=== PATIENT | male | born 1940 | race Caucasian/White ===

== ENCOUNTER 2020-06-20 12:30 | Outpatient (CLI) | payer MEDICARE, SELFPAY ==
--- NOTE | 2020-06-20 12:37 | USCV_ITS ---
Uzair Jackson Age: 79 Gender: M : 1940 Exam Date: 06/20/2020 13:10 Ordering Phys: Flakito Anand MD (Andy) ([email or web address]) Technologist: Nelsy Florian Exam Location: [facility] [place] Indication: ARTERIOSCLEROSIS Risk Factors: Unknown Previous Vascular Surgery: L CEA Right Brachial BP: 0 / 0 Left Brachial BP: 0 / 0 Right Left Velocity (cm/s) Spectral Plaque Velocity (cm/s) Spectral Plaque Syst/Diast Broadening Syst/Diast Broadening 67.50/ 9.40 Prox CCA 55.50 / 9.40 48.90/ 10.10 Hetro Mid CCA 48.70 / 12.80 39.60/ 10.90 Hetro Distal CCA 50.40 / 11.10 44.40/ 9.40 Prox ICA 79.40 / 15.40 78.30/ 16.20 Mid ICA 116.50/ 23.30 63.40/ 14.20 Distal ICA 81.30 / 17.60 124.10 ECA 79.50 1.60 ICA/CCA 2.39 Not Vertebral Antegrade Visualized / cm/s 39.30/ 11.10 cm/s Bi Subclavian Bi 101.0 78.30 0 FINDINGS Comparison: 08-19-19. No significant elevation of systolic or diastolic velocities. Mild bilateral, intimal thickening with no elevation of velocity. Right vertebral artery not visualized. CONCLUSIONS Bilateral ICA stenosis less than 50%. No significant stenosis. Dr. Padma Lyon DO (Electronically Signed) Final Date: 20 June 2020 15:11 Amended: 20 June 2020 15:52 C
== END 2020-06-20 12:31 | disposition home or self-care (01) ==
PROVIDERS: PCP Physician Assistant Medical; Visit Provider Thoracic Surgery (Cardiothoracic Vascular Surgery)
DX: I65.23 Occlusion and stenosis of bilateral carotid arteries (principal)
CPT/HCPCS: 93880

== ENCOUNTER 2021-12-24 13:21 | Emergency (ER) | payer MEDICARE, MEDICAID, SELFPAY ==
[2021-12-24 13:27] VITALS: BP 122/68; PULSE 86; RESP 16; TEMP 36.9; O2SAT 93; BMI 29.5
--- NOTE | 2021-12-24 13:27 | ED_ITS ---
HPI - Epistaxis General: Chief complaint: General Medical Stated complaint: N/V, NOSEBLEED Time Seen by Provider: 12/24/21 13:26 Limitations: other (Poor historian) History of Present Illness: Mr. Jackson is an 81-year-old gentleman with somewhat unclear past medical history presents emergency department with generalized concerns. He reports nosebleeds over the past week or so that started after he hit his head while being in a [employer] lift. He denies loss of consciousness with this though reliability of history is somewhat unclear. He has had intermittent episodes of epistaxis since that time however all of them have been minor and self resolving and he does not think that he is on blood thinner. Additionally he endorses dizziness, nausea, vomiting, and generalized malaise. The patient endorses left heel pain. Intensity of overall symptoms is mild to moderate. Course is unclear. The patient has difficulty determining which concerns are new versus chronic and if they are worse than baseline. No other new symptoms, exacerbating, relieving factors identified. Onset (ago): day(s) Duration: intermittent Review of Systems General: Reports: 10 or more systems reviewed and unremarkable except in HPI and below PFSH ED PFSH: Medical History BPH loc w urin obs/LUTS CAD (coronary artery disease) Carotid stenosis HTN (hypertension) Type 2 diabetes mellitus Surgical History No pertinent past surgical history Social History Lives independently: No Housing: Alf Physical Exam Const: COMMON NORMALS: alert GENERAL APPEARANCE: cooperative and well developed HENMT: COMMON NORMALS: normocephalic, atraumatic and Normal external nose present HEAD & SCALP: normocephalic and atraumatic NOSE: Normal external nose present, Normal nares present, Normal septum present, Nasal polyp present (Small, nonbleeding) Nasal polyp laterality: left and Other nasal findings present (Minimal mucosal irritation) THROAT: posterior oropharynx normal Eye: COMMON NORMALS: conjunctivae normal CONJUNCTIVA: Yes conjunctivae normal SCLERA: sclerae normal Neck/C-Spine: COMMON NORMALS: supple GENERAL: Yes trachea midline Resp: COMMON NORMALS: normal respiratory effort EFFORT & INSPECTION: Yes able to speak in complete sentences Cardio: COMMON NORMALS: regular rate and regular rhythm RATE: regular rate RHYTHM: regular rhythm GI: COMMON NORMALS: Soft to palpation PALPATION: Yes Soft to palpation and No Tenderness to palpation present (GI) PERCUSSION: normal to percussion Extremity: GENERAL: Yes normal exam except as noted and No edema Neuro: COMMON NORMALS: CN's II-XII intact bilaterally, moves all extremities, no focal motor deficits and no sensory deficits noted SENSORIUM/ORIENTATION: Yes alert Psych: OTHER: Poor memory, cognition intact. Course ED course: - Patient was seen and evaluated by me at bedside - Patient placed on cardiac monitors, IV access obtained - Initial evaluation notable for exam as above, nontoxic. No active epistaxis - Labs notable for leukocytosis, normal hemoglobin. Metabolic panel with mildly decreased sodium and chloride without recent comparison. IV fluids ordered. Urinalysis concerning for urinary tract infection. Antibiotics ordered. - Imaging notable for no acute intracranial hemorrhage or mass on head CT. Chest x-ray unremarkable. No acute pathology identified to explain nausea or vomiting on CT abdomen pelvis - Upon serial reexamination after treatment the patient was improved - Based on patient history, evaluation, labs, and imaging as interpreted the most likely cause of the patient's condition is unclear, patient does have a urinary tract infection. Given nontoxic appearance and overall clinical status as well as in discussion with patient we will try outpatient management. - The results of ED evaluation were discussed with the patient and family including prescriptions and/or symptomatic cares (if applicable) including appropriate and responsible use, followup plan, and return precautions. The p atient and family verbalized understanding and felt safe for discharge. - Patient discharged in satisfactory condition. Note: Click bubbles or prepopulated bustamante in note writing are used for assistance with data collection and billing and are inherently more limited than narrative and other text portions of this note. Please use narrative for additional clinical history and defer to narrative/free test for any case of contradictory information. If information appears in only free text or click bubble it should be considered present or absent as reported. Please contact note verse writer for clarifications of clinical information or contradictory information. MDM is a brief summary, contradictory or erroneous seeming information should be clarified and full note should be reviewed. Vital Signs: Vital signs: Vital Signs Temperature 98.4 F 12/24/21 13:27 Pulse Rate 83 12/24/21 20:26 Respiratory Rate 16 12/24/21 20:26 Blood Pressure 117/64 12/24/21 20:26 Pulse Oximetry 92 12/24/21 20:26 MDM - Epistaxis Medical Decision Making 81-year-old gentleman residing at a [facility] presenting for epistaxis and nausea vomiting. No epistaxis noted on clinical exam. Laboratory studies with leukocytosis, patient does appear to have a urinary tract infection. Rocephin ordered in the emergency department and will trial continued outpatient treatment with strict return precautions. Medical Records I reviewed the patient's medical records. Lab Data I reviewed the patient's lab results. : 12/24/21 13:34 12/24/21 13:34 Radiology Impressions Calcaneus X-Ray 12/24/21 13:40 IMPRESSION: No calcaneal fracture. Foot X-Ray 12/24/21 13:40 IMPRESSION: 1. Severe osteopenia. 2. No definite fracture. Possible nondisplaced fracture proximal third metatarsal. 3. No calcaneal fracture. 4. Small calcaneal spur. Head CT 12/24/21 13:40 IMPRESSION: 1. No acute intracranial hemorrhage or edema. 2. Moderate atrophy and chronic ischemic type changes. 3. Air-fluid level LEFT maxillary sinus. LEFT frontal osteoma. Abdomen/Pelvis CT 12/24/21 15:05 IMPRESSION: 1. Mild pneumonitis at the lung bases. 2. Remote healed rib fractures inferior RIGHT thorax. 3. Diverticulosis without acute diverticulitis. 4. No evidence for cholecystitis or pancreatitis. 5. Bilateral renal cysts. 6. The appendix is not definitely identified. No inflammatory changes. Chest X-Ray 12/24/21 15:05 IMPRESSION: 1. No acute cardiopulmonary finding. Laboratory Results WBC 16.8 10^3/uL (4.0-10.0) H 12/24/21 13:34 RBC 5.44 10^6/uL (4.1-5.3) H 12/24/21 13:34 Hgb 15.2 g/dL (11.7-16.6) 12/24/21 13:34 Hct 47.4 % (42.0-52.0) 12/24/21 13:34 MCV 87.1 fl (80-94) 12/24/21 13:34 MCH 27.9 pg (28.0-34.0) L 12/24/21 13:34 MCHC 32.1 g/dL (30.0-36.0) 12/24/21 13:34 RDW 15.1 % (12.1-15.1) 12/24/21 13:34 Plt Count 267 10^3/cmm (130-400) 12/24/21 13:34 MPV 10.7 fL (7.4-10.4) H 12/24/21 13:34 Neut % (Auto) 80.9 % 12/24/21 13:34 Lymph % (Auto) 6.1 % 12/24/21 13:34 [place] % (Auto) 12.0 % 12/24/21 13:34 Eos % (Auto) 0.1 % 12/24/21 13:34 Baso % (Auto) 0.2 % 12/24/21 13:34 Neut # (Auto) 13.58 10^3/uL (1.8-7.7) H 12/24/21 13:34 Lymph # (Auto) 1.0 10^3/uL (0.8-4.8) 12/24/21 13:34 [place] # (Auto) 2.0 10^3/uL (0.2-0.9) H 12/24/21 13:34 Eos # (Auto) 0.0 10^3/uL (0.0-0.8) 12/24/21 13:34 Baso # (Auto) 0.0 10^3/uL (0.0-0.1) 12/24/21 13:34 Nucleated RBC % (auto) 0 % 12/24/21 13:34 Nucleated RBCs # 0.0 /100WBC 12/24/21 13:34 Sodium 130 mmol/L (136-145) L 12/24/21 13:34 Potassium 4.4 mmol/L (3.5-5.1) 12/24/21 13:34 Chloride 92 mmol/L (98-107) L 12/24/21 13:34 Carbon Dioxide 22 mmol/L (22-29) 12/24/21 13:34 Anion Gap 20.4 (5-19) H 12/24/21 13:34 BUN 33 mg/dL (8-23) H 12/24/21 13:34 Creatinine 1.2 mg/dL (0.7-1.2) 12/24/21 13:34 GFR Calculation Not Reportable 12/24/21 13:34 Glucose 181 mg/dL (65-115) H 12/24/21 13:34 Calculated Osmolality 282 mOsm/kg (285-295) L 12/24/21 13:34 Calcium 9.3 mg/dL (8.5-10.5) 12/24/21 13:34 Total Bilirubin 0.3 mg/dL (0.15-1.2) 12/24/21 13:34 AST 17 U/L (0-40) 12/24/21 13:34 ALT 21 U/L (0-41) 12/24/21 13:34 Alkaline Phosphatase 59 IU/L (40-130) 12/24/21 13:34 Total Protein 7.0 g/dL (6.6-8.7) 12/24/21 13:34 Albumin 3.6 g/dL (3.5-5.2) 12/24/21 13:34 Globulin 3.4 g/dL (1.3-4.6) 12/24/21 13:34 TSH 2.22 uIU/mL (0.27-4.20) 12/24/21 13:34 Urine Color Yellow (Yellow) 12/24/21 16:37 Urine Appearance Hazy (CLEAR) A 12/24/21 16:37 Urine pH 5 (5-7) 12/24/21 16:37 Ur Specific [place] 1.020 (1.005-1.030) 12/24/21 16:37 Urine Protein 1+ (Negative) H 12/24/21 16:37 Urine Glucose (UA) Norm (Normal) 12/24/21 16:37 Urine Ketones Negative (Negative) 12/24/21 16:37 Urine Blood 3+ (Negative) H 12/24/21 16:37 Urine Nitrate Negative (Negative) 12/24/21 16:37 Urine Bilirubin Neg (Negative) 12/24/21 16:37 Urine Urobilinogen Norm mg/dL (Negative) 12/24/21 16:37 Ur Leukocyte Esterase 2+ (Negative) H 12/24/21 16:37 Urine RBC 5-10 /hpf (0-2) H 12/24/21 16:37 Urine WBC Too numerous to cnt /hpf (0-5) H 12/24/21 16:37 Ur Squamous Epith Cells None /hpf (0-5) 12/24/21 16:37 Amorphous Sediment Not Reportable 12/24/21 16:37 Urine Bacteria 1+ /hpf (NONE) H 12/24/21 16:37 Discharge Plan Discharge Patient Disposition: Home Clinical Impression: Epistaxis, Acute UTI, Dehydration, Leukocytosis Condition: Stable Prescriptions: New cephalexin 500 mg capsule 500 mg PO Q6H 10 Days Qty: 40 0RF No Action finasteride 5 mg tablet 5 mg PO DAILY Qty: 30 2RF acetaminophen [Tylenol] 325 mg Tablet 325 mg PO QID PRN (Reason: Pain) 0RF metoprolol succinate 50 mg Tablet Extended Release 24 Hr 50 mg PO DAILY 0RF ondansetron HCl [Zofran] 8 mg Tablet 8 mg PO Q8H 0RF sennosides-docusate sodium [Senna Plus] 8.6-50 mg Tablet 1 tab-cap PO Q12H PRN (Reason: Constipation) 0RF clopidogrel 75 mg tablet 75 mg PO DAILY 0RF dimenhydrinate 50 mg Tablet 50 mg PO Q12H PRN (Reason: Nausea) 0RF famotidine 20 mg Tablet 20 mg PO DAILY 0RF magnesium hydroxide [Milk of Magnesia] 400 mg/5 mL Suspension 400 mg PO DAILY PRN (Reason: Constipation) 0RF tamsulosin 0.4 mg capsule 0.4 mg PO BID 0RF amlodipine 10 mg tablet 10 mg PO DAILY 0RF hydrochlorothiazide 25 mg tablet 25 mg PO DAILY 0RF Med Plus See Rx Instructions .ROUTE .COMPLEX 0RF Rx Instructions: ;TWO TIMES A DAY FOR PREVENTION Discharge Orders: Discharge ED (Routine); Ordered 12/24/21 Ordered By: Stuart Seals Referrals: Adrian Hensley [Referring] - Discharge Diet: Usual diet Discharge Activity: Resume usual activity Patient Instructions: Dehydration (ED), Urinary Tract Infection in Men (ED), Nosebleed (ED) Activity Restrictions/Additional Instructions: Thank you for visiting the emergency department. You were seen and evaluated for nosebleed. The exact cause of your symptoms is unclear as no nosebleed was seen on exam, you do have a mildly irritated polyp which is likely normal inside the nose however can be a source of bleeding. Additionally you were found to have dehydration and a urinary tract infection. This will be treated with antibiotics. Please follow-up with your primary care provider this week for reassessment. Please return to the emergency department for worsening illness, inability to tolerate oral intake, failure to improve, or anything else that you are concerned about a feel needs emergency department evaluation. Coding Level of Care Code ED [employer] for [facility] Exam Comprehensive
[2021-12-24 13:32] VITALS: BP 109/74; PULSE 83; RESP 14; O2SAT 98
--- NOTE | 2021-12-24 13:40 | XR_ITS ---
WS: [id number] LEFT CALCANEUS TECHNIQUE: Lateral and tangential view. HISTORY: heel pain COMPARISON: None available. No fracture identified. Diffuse osteopenia. Small calcaneal spur. XR/XR calcaneus LT min 2V [id number] IMPRESSION: No calcaneal fracture.
--- NOTE | 2021-12-24 13:40 | CT_ITS ---
WS: [id number] CT HEAD NONCONTRAST HISTORY: dizzy, falls TECHNIQUE: Contiguous axial imaging performed through the brain in 2.5 mm imaging. Bone and soft tiss ue windows. Sagittal and coronal reformats reviewed. All CT scans at [facility] use at least one of these dose optimization techniques: automated exposure control; mA and/or kV adjustment per pa tient size (includes targeted exams where dose is matched to clinical indication); or iterative recon struction. DLP: 2326.22 mGy.cm COMPARISON: 04/22/2018 No acute intracranial hemorrhage, midline shift or mass effect. Moderate bilateral atrophy and chronic microvascular ischemic disease. Bilateral cerebellar atrophy. Multiple small lacunar infarcts along the external capsules. Ventricles: Moderately dilated ventricles. Diffuse ventriculomegaly. Paranasal sinuses: Air-fluid level in the LEFT maxillary sinus. Dense concretion in the LEFT frontal sinus was also present on the prior study. This may be a developing osteoma. Mastoid air cells: Well pneumatized. Calvarium and scalp: Skull is intact with no soft tissue edema or swelling. CT/CT head wo con* [id number] IMPRESSION: 1. No acute intracranial hemorrhage or edema. 2. Moderate atrophy and chronic ischemic type changes. 3. Air-fluid level LEFT maxillary sinus. LEFT frontal osteoma.
--- NOTE | 2021-12-24 13:40 | XR_ITS ---
WS: [id number] LEFT FOOT: 3 VIEW(S) TECHNIQUE: AP, oblique and lateral. HISTORY: pain, midfoot plantar COMPARISON: None available. Possible nondisplaced fracture involving the proximal third metatarsal seen only on one image. Articu lations between the bones of the midfoot are obscured. Severe osteopenia. Small calcaneal spur. XR/XR foot LT min 3V* [id number] IMPRESSION: 1. Severe osteopenia. 2. No definite fracture. Possible nondisplaced fracture proximal third metatar roselyn. 3. No calcaneal fracture. 4. Small calcaneal spur.
[2021-12-24 13:52] LABS: Basophils % 0.2 %; Eosinophils % 0.1 %; Hematocrit 47.4 % (42.0-52.0); Hemoglobin 15.2 g/dL (11.7-16.6); Lymphocytes % 6.1 %; Mean Corpuscular HGB Conc 32.1 g/dL (30.0-36.0); Mean Corpuscular Hemoglobin 27.9 pg (28.0-34.0); Mean Corpuscular Volume 87.1 fl (80-94); Mean Platelet Volume 10.7 fL (7.4-10.4); Neutrophils # 13.58 10^3/uL (1.8-7.7); Neutrophils % 80.9 %; Nucleated Red Blood Cells % 0 %; Platelet Count 267 10^3/cmm (130-400); Red Blood Count 5.44 10^6/uL (4.1-5.3); Red Cell Distribution Width 15.1 % (12.1-15.1); White Blood Count 16.8 10^3/uL (4.0-10.0)
[2021-12-24 14:20] LABS: Alanine Aminotransferase 21 U/L (0-41); Albumin Level 3.6 g/dL (3.5-5.2); Alkaline Phosphatase 59 IU/L (40-130); Anion Gap 20.4 (5-19); Aspartate Amino Transferase 17 U/L (0-40); Blood Urea Nitrogen 33 mg/dL (8-23); Calcium 9.3 mg/dL (8.5-10.5); Carbon Dioxide 22 mmol/L (22-29); Chloride 92 mmol/L (98-107); Creatinine Clr Calc Pharmacy 51.9249; Globulin 3.4 g/dL (1.3-4.6); Glucose 181 mg/dL (65-115); Osmolality Calculated 282 mOsm/kg (285-295); Potassium 4.4 mmol/L (3.5-5.1); Sodium 130 mmol/L (136-145); Thyroid Stimulating Hormone 2.22 uIU/mL (0.27-4.20); Total Bilirubin 0.3 mg/dL (0.15-1.2)
[2021-12-24 15:04] VITALS: BP 111/60; PULSE 86; RESP 16; O2SAT 93
--- NOTE | 2021-12-24 15:05 | XR_ITS ---
WS: [id number] Exam: XR chest 1V portable [id number] Date/Time of Exam: 12/24/2021 3:06 PM Reason For Exam: ams, leukocytosis Comparison 04/22/2018. The lungs are fully expanded and clear. Cardiomediastinal structures are unremarkable for technique. No pleural effusions. Bony structures are intact. XR/XR chest 1V portable [id number] IMPRESSION: 1. No acute cardiopulmonary finding.
--- NOTE | 2021-12-24 15:05 | CT_ITS ---
WS: [id number] CT ABDOMEN AND PELVIS WITH CONTRAST HISTORY: n/v, leukocytosis, ams TECHNIQUE: Imaging performed of the abdomen and pelvis with IV contrast. Single phase imaging of the abdomen. Coronal and sagittal reformats are submitted. All CT scans at [facility] use at [address] one of these dose optimization techniques: automated exposure control; mA and/or kV adjustment per patient size (includes targeted exams where dose is matched to clinical indication); or iterative re construction. IV CONTRAST: Omnipaque 300; 95 mL IV. Oral contrast: No DLP: 1955.23 mGy.cm COMPARISON: None available. Lower thorax: Dependent changes at the lung bases. Mild interstitial thickening likely represent mild pneumonitis. Heart is slightly enlarged. No hiatal hernia. Incompletely visualized rib abnormality i n the RIGHT lower thorax is probably a healing rib fracture. There are several adjacent healing rib f ractures in the RIGHT thorax. Liver/biliary system: Normal size with mild hepatic steatosis. Normal portal vein. Gallbladder: Normal. No gallstones or wall thickening. No pericholecystic fluid. Pancreas: Normal size pancreas and pancreatic duct. No adjacent inflammation. Spleen: Normal size spleen. No mass or infarct. Adrenal glands: Normal. Right kidney: RIGHT renal cyst measures 4.1 x 5.0 cm. No solid mass. There is an additional subcentim eter cortical cyst in the posterior mid kidney. No renal obstruction. Left kidney: Multiple small cysts. No perinephric stranding or obstruction. Aorta: Moderate atherosclerotic plaque within the aorta. Heavy calcification continues into the myla c axis and SMA. Bilateral renal artery calcification. Calcification continues into the iliac arteries bilaterally. Lymphadenopathy: None. Free fluid: None. GI tract: Nondistended stomach. No small bowel obstruction. The appendix is not identified but there is no evidence for appendicitis. Several diverticula are noted within the distal colon. No CT evidenc e for acute diverticulitis. No obstructive pattern or mass. Abdominal wall: Unremarkable abdominal wall. No hernia. Pelvis: No free fluid or adenopathy within the pelvis. Well-distended urinary bladder. No intralumina l filling defect. Bones: Unremarkable. CT/CT abdomen pelvis w con* [id number] IMPRESSION: 1. Mild pneumonitis at the lung bases. 2. Remote healed rib fractures inferior RIGHT thorax. 3. Diverticulosis without acute diverticulitis. 4. No evidence for cholecystitis or pancreatitis. 5. Bilateral renal cysts. 6. The appendix is not definitely identified. No inflammatory changes.
--- NOTE | 2021-12-24 15:18 | PC.PHAR ---
MEDICATION VERIFIED BY NURSE DICKERSON AT [facility]
[2021-12-24] MEDS: iohexol 300 mg/mL 100 mL Btl IV (15:33)
[2021-12-24] MEDS: sodium chloride 0.9% 1,000 ML 999 ML IV (16:10)
[2021-12-24 16:58] LABS: Urine Appearance Hazy (CLEAR); Urine Color Yellow (Yellow)
[2021-12-24 16:59] LABS: Add Urine Microscopic? YES; Bilirubin Urine Neg (Negative); Blood Urine 3+ (Negative); Glucose Urine UA Norm (Normal); Ketones Urine Negative (Negative); Leukocyte Esterase Urine 2+ (Negative); Nitrate Urine Negative (Negative); Protein Urine 1+ (Negative); Urobilinogen Urine Norm (Negative); pH Urine 5 (5-7)
[2021-12-24 17:15] LABS: Add Urine Culture? Yes; Bacteria Urine 1+ /hpf; WBC Urine TOO NUMEROUS TO CNT /hpf (0-5)
[2021-12-24] MEDS: cefTRIAXone 1,000 MG in sodium chloride 0.9% (plus) 50 ML 100 MG IV (17:40)
[2021-12-24 20:05] VITALS: BP 117/64; PULSE 81; RESP 16; O2SAT 93
[2021-12-24 20:26] VITALS: BP 117/64; PULSE 83; RESP 16; O2SAT 92
== END 2021-12-24 20:51 | disposition home or self-care (01) ==
PROVIDERS: Emergency Provider Emergency Medicine
DX: R04.0 Epistaxis (principal); N39.0 Urinary tract infection, site not specified; E86.0 Dehydration; D72.829 Elevated white blood cell count, unspecified; Z79.02 Long term (current) use of antithrombotics/antiplatelets; I25.10 Atherosclerotic heart disease of native coronary artery without angina pectoris; I10 Essential (primary) hypertension; E11.9 Type 2 diabetes mellitus without complications
CPT/HCPCS: 36415; 51701; 70450; 71045; 73630; 73650; 74177; 80053; 81001; 84443; 85025; 87040; 87086; 96361; 96374; 99284; J0696; J7030; Q9967

== ENCOUNTER 2021-12-25 21:55 | Inpatient (IN) | payer MEDICARE, MEDICAID, SELFPAY ==
--- NOTE | 2021-12-25 21:59 | CTR_ITS ---
PROCEDURE INFORMATION: Exam: CT Head Without Contrast Exam date and time: 12/25/2021 9:59 PM Age: 81 years old Clinical indication: Altered mental status/memory loss and fever; Patient HX: Per [facility], patient having increased unresponsiveness and weakness with fever. Patient diagnosed with UTI on 12/24/2021. TECHNIQUE: Imaging protocol: Computed tomography of the head without contrast. Radiation optimization: All CT scans at this facility use at least one of these dose optimization techniques: automated exposure control; mA and/or kV adjustment per patient size (includes targeted exams where dose is matched to clinical indication); or iterative reconstruction. COMPARISON: CT head wo con* [id number] 12/24/2021 2:04 PM RADIATION DOSE METRICS: Total DLP (mGy-cm): 803.61 FINDINGS: Brain: No acute intracranial hemorrhage or mass effect. There is decreased attenuation in the periventricular white matter, likely from microvascular disease. Suspect small old lacunar infarcts in the basal ganglia/internal capsule regions bilaterally. No definite acute infarct by CT. MRI could be more sensitive/specific for detection, and also for distinguishing between old and subacute infarcts, as clinically directed. Cerebral ventricles: Ventricle size is unchanged. Paranasal sinuses: Apparent osteoma again seen in the left frontal sinus. Moderate fluid/opacity involving the left maxillary sinus, unchanged. Included paranasal sinuses otherwise appear essentially clear. Mastoid air cells: No significant acute finding. Vasculature: Vascular calcifications in the internal carotid and vertebral basilar systems. Bones/joints: No definite acute skull fracture. Soft tissues: No significant acute finding. CT/CT head wo con* [id number] IMPRESSION: 1. No acute intracranial hemorrhage or mass effect. 2. Changes of microvascular disease, and small old lacunar infarcts. 3. No definite acute infarct by CT, see above. 4. Paranasal sinus findings as discussed above. 5. Other findings discussed above.
--- NOTE | 2021-12-25 21:59 | XRR_ITS ---
PROCEDURE INFORMATION: Exam: XR Chest Exam date and time: 12/25/2021 9:59 PM Age: 81 years old Clinical indication: Other: Weak; Patient HX: AMS; Additional info: Weakness TECHNIQUE: Imaging protocol: XR of the chest. Views: 1 view. COMPARISON: CR XR chest 1V portable [id number] 12/24/2021 3:10 PM FINDINGS: Lungs: No CHF/pulmonary edema. Visible lungs appear essentially clear. Pleural spaces: No visible pneumothorax. No definite pleural fluid. Heart/Mediastinum: Heart size is upper range of normal. Vasculature: Mild to moderate aortic tortuosity, similar to the prior exam. Bones/joints: No significant acute finding. XR/XR chest 1V portable [id number] IMPRESSION: 1. No definite CHF or pneumonia. 2. Other findings discussed above.
[2021-12-25 22:11] VITALS: BP 169/88; PULSE 134; RESP 18; TEMP 38.3; O2SAT 89; BMI 33.2
--- NOTE | 2021-12-25 22:29 | ED_ITS ---
HPI - Altered Mental Status General: Chief Complaint: Altered Mental Status Stated Complaint: AMS Time Seen by Provider: 12/25/21 21:58 Source: patient Mode of arrival: ambulatory Limitations: no limitations History of Present Illness: 81-year-old male who was seen here yesterday diagnosed with UTI sent back to detention per detention today has became more altered. Patient at baseline is ANO x2 and he is bedbound as well states today that he was completely unresponsive at times and it most time he does tell his name but not talk much. Here he is alert will tell me his name but is quite lethargic patient does have a fever here of 101 states been altered all day long from his baseline. No cough Associated symptoms: Deny depression Review of Systems General: Reports: ROS unobtainable due to mental status Const: Denies: fever(s), chills, body aches or change in appetite Eyes: Denies: blurry vision or eye discomfort ENMT: Denies: throat pain or dental pain Card: Denies: chest pain Resp: Denies: dyspnea GI: Denies: abdominal pain, nausea, vomiting or diarrhea : Denies: dysuria Musc: Denies: neck pain or back pain Skin/Breast: Denies: rash Neuro: Denies: headache(s) Psych: Denies: depression Vinny/Lymph: Denies: easy bruising All/Imm: Denies: urticaria PFSH ED PFSH: Medical History BPH loc w urin obs/LUTS CAD (coronary artery disease) Carotid stenosis HTN (hypertension) Type 2 diabetes mellitus Surgical History No pertinent past surgical history Social History Lives independently: No Housing: Half-Way Physical Exam Const: COMMON NORMALS: alert; negative for patient oriented x3 EXAM LIMITATIONS: altered mental status GENERAL APPEARANCE: in distress, lethargic and ill appearing ORIENTATION/CONSCIOUSNESS: Yes oriented to person and Yes lethargic; not oriented to place and not oriented to time HENMT: COMMON NORMALS: normocephalic and atraumatic HEAD & SCALP: normocephalic and atraumatic Eye: COMMON NORMALS: Equal, round and reactive pupils present and EOMs intact bilaterally PUPIL: Yes Equal, round and reactive pupils present Neck/C-Spine: COMMON NORMALS: full ROM and supple Chest: COMMONS NORMALS: normal inspection of the chest and normal palpation of entire chest wall Resp: COMMON NORMALS: normal respiratory effort, No retractions, No use of accessory muscles and clear to auscultation bilaterally AUSCULTATION: clear to auscultation bilaterally Cardio: COMMON NORMALS: regular rhythm and No murmurs present (Cardio) RATE: tachycardic RHYTHM: regular rhythm GI: COMMON NORMALS: Normal to inspection, nondistended, normoactive bowel sounds present, Soft to palpation, non-tender and no masses PALPATION: Yes Soft to palpation Extremity: COMMON NORMALS: normal to inspection and full ROM Neuro: COMMON NORMALS: negative for patient oriented x3 SENSORIUM/ORIENTATION: Yes alert, Yes oriented to person, No oriented to place, No oriented to time and Yes lethargic Psych: COMMON NORMALS: cooperative; negative for mental status grossly normal and negative for Normal thought process present THOUGHT PROCESS: abnormal Skin: COMMON NORMALS: no rashes or lesions noted and no wounds GENERAL SKIN EXAM: no rashes or lesions noted Course Vital Signs: Vital signs: Vital Signs Temperature 101.0 F H 12/25/21 22:11 Pulse Rate 134 H 12/25/21 22:11 Respiratory Rate 18 12/25/21 22:11 Blood Pressure 169/88 12/25/21 22:11 Pulse Oximetry 89 L 12/25/21 22:11 MDM - Altered Mental Status Medical Decision Making Patient presents here with fever along with some altered mental status his white count is actually improved since yesterday's urinalysis is improved as well he likely does have an acute cystitis causing his fever and AMS. He will answer some of my questions here but per previous history is a little altered from baseline I spoke to Dr. Robledo and she will admit for observation here. Lab Data : 12/25/21 22:30 12/25/21 22:[address] 12/25/21 21:59 IMPRESSION: 1. No acute intracranial hemorrhage or mass effect. 2. Changes of microvascular disease, and small old lacunar infarcts. 3. No definite acute infarct by CT, see above. 4. Paranasal sinus findings as discussed above. 5. Other findings discussed above. Laboratory Results WBC 13.7 10^3/uL (4.0-10.0) H 12/25/21: RBC 5.63 10^6/uL (4.1-5.3) H 12/25/21: Hgb 15.6 g/dL (11.7-16.6) 12/25/21: Hct 46.2 % (42.0-52.0) 12/25/21: MCV 82.1 fl (80-94) 12/25/21: MCH 27.7 pg (28.0-34.0) L 12/25/21: MCHC 33.8 g/dL (30.0-36.0) 12/25/21 RDW 14.5 % (12.1-15.1) 12/25/21 Plt Count 222 10^3/cmm (130-400) 12/25/21 MPV 10.4 fL (7.4-10.4) 12/25/21: Neut % (Auto) 84.6 % 12/25/21: Lymph % (Auto) 5.1 % 12/25/21: [place] % (Auto) 8.9 % 12/25/21: Eos % (Auto) 0.0 % 12/25/21: Baso % (Auto) 0.3 % 12/25/21: Neut # (Auto) 11.58 10^3/uL (1.8-7.7) H 12/25/21: Lymph # (Auto) 0.7 10^3/uL (0.8-4.8) L 12/25/21: [place] # (Auto) 1.2 10^3/uL (0.2-0.9) H 12/25/21: Eos # (Auto) 0.0 10^3/uL (0.0-0.8) 12/25/21 Baso # (Auto) 0.0 10^3/uL (0.0-0.1) 12/25/21: Nucleated RBC % (auto) 0 % 12/25/21 Nucleated RBCs # 0.0 /100WBC 12/25/21: PT 13.50 SECONDS (12.1-14.9) 12/25/21: INR 1.00 (0.8-1.2) 12/25/21: Sodium 129 mmol/L (136-145) L 12/25/21: Potassium 3.9 mmol/L (3.5-5.1) 12/25/21: Chloride 89 mmol/L (98-107) L 12/25/21: Carbon Dioxide 23 mmol/L (22-29) 12/25/21: Anion Gap 20.9 (5-19) H 12/25/21: BUN 22 mg/dL (8-23) 12/25/21: Creatinine 0.9 mg/dL (0.7-1.2) 12/25/21 GFR Calculation Not Reportable 12/25/21 Glucose 151 mg/dL (65-115) H 12/25/21: Calculated Osmolality 274 mOsm/kg (285-295) L 12/25/21: Lactic Acid 1.7 mmol/L (0.5-2.2) 12/25/21: Calcium 9.4 mg/dL (8.5-10.5) 12/25/21: Total Bilirubin 0.4 mg/dL (0.15-1.2) 12/25/21: AST 21 U/L (0-40) 12/25/21: ALT 18 U/L (0-41) 12/25/21: Alkaline Phosphatase 63 IU/L (40-130) 12/25/21: Ammonia 10 umol/L (16-60) L 12/25/21: Total Protein 7.2 g/dL (6.6-8.7) 12/25/21: Albumin 4.0 g/dL (3.5-5.2) 12/25/21: Globulin 3.2 g/dL (1.3-4.6) 12/25/21: Urine Color Yellow (Yellow) 12/25/21: Urine Appearance Clear (CLEAR) 02/22/22 22:38 Urine pH 5 (5-7) 12/25/21 22:38 Ur Specific [place] 1.020 (1.005-1.030) 12/25/21 22:38 Urine Protein Neg (Negative) 12/25/21 22:38 Urine Glucose (UA) Norm (Normal) 12/25/21 22:38 Urine Ketones 1+ (Negative) H 12/25/21 22:38 Urine Blood Trace (Negative) H 12/25/21 22:38 Urine Nitrate Negative (Negative) 12/25/21 22:38 Urine Bilirubin Neg (Negative) 12/25/21 22:38 Urine Urobilinogen Norm mg/dL (Negative) 12/25/21 22:38 Ur Leukocyte Esterase Negative (Negative) 12/25/21 22:38 Urine RBC 0-4 /hpf (0-2) H 12/25/21 22:38 Urine WBC 25-40 /hpf (0-5) H 12/25/21 22:38 Ur Squamous Epith Cells 0-4 /hpf (0-5) H 12/25/21 22:38 Amorphous Sediment Not Reportable 12/25/21 22:38 Urine Bacteria Trace /hpf (NONE) 12/25/21 22:38 Urine Mucus Trace /hpf 12/25/21 22:38 Urine Yeast 1+ /hpf H 12/25/21 22:38 SARS-CoV-2 Ag (Rapid) Negative (Negative) 12/25/21 22:28 Discharge Plan Discharge Patient Disposition: Admitted As Inpatient Clinical Impression: Acute cystitis, AMS (altered mental status) Condition: Stable Prescriptions: No Action finasteride 5 mg tablet 5 mg PO DAILY Qty: 30 2RF Tylenol 325 mg Tablet 325 mg PO QID PRN (Reason: Pain) 0RF metoprolol succinate 50 mg Tablet Extended Release 24 Hr 50 mg PO DAILY 0RF Zofran 8 mg Tablet 8 mg PO Q8H 0RF Senna Plus 8.6-50 mg Tablet 1 tab-cap PO Q12H PRN (Reason: Constipation) 0RF clopidogrel 75 mg tablet 75 mg PO DAILY 0RF dimenhydrinate 50 mg Tablet 50 mg PO Q12H PRN (Reason: Nausea) 0RF famotidine 20 mg Tablet 20 mg PO DAILY 0RF Milk of Magnesia 400 mg/5 mL Suspension 400 mg PO DAILY PRN (Reason: Constipation) 0RF tamsulosin 0.4 mg capsule 0.4 mg PO BID 0RF amlodipine 10 mg tablet 10 mg PO DAILY 0RF hydrochlorothiazide 25 mg tablet 25 mg PO DAILY 0RF Med Plus See Rx Instructions .ROUTE .COMPLEX 0RF Rx Instructions: ;TWO TIMES A DAY FOR PREVENTION cephalexin 500 mg capsule 500 mg PO Q6H 10 Days Qty: 40 0RF Coding Level of Care Code ED Auto Bumper Mechanic for Chg Fwd Exam Comprehensive
[2021-12-25 22:48] LABS: Basophils % 0.3 %; Hematocrit 46.2 % (42.0-52.0); Hemoglobin 15.6 g/dL (11.7-16.6); Lymphocytes # 0.7 10^3/uL (0.8-4.8); Lymphocytes % 5.1 %; Mean Corpuscular HGB Conc 33.8 g/dL (30.0-36.0); Mean Corpuscular Hemoglobin 27.7 pg (28.0-34.0); Mean Corpuscular Volume 82.1 fl (80-94); Mean Platelet Volume 10.4 fL (7.4-10.4); Monocytes # 1.2 10^3/uL (0.2-0.9); Monocytes % 8.9 %; Neutrophils # 11.58 10^3/uL (1.8-7.7); Neutrophils % 84.6 %; Nucleated Red Blood Cells % 0 %; Platelet Count 222 10^3/cmm (130-400); Red Blood Count 5.63 10^6/uL (4.1-5.3); Red Cell Distribution Width 14.5 % (12.1-15.1); White Blood Count 13.7 10^3/uL (4.0-10.0)
[2021-12-25 23:03] LABS: Add Urine Culture? Yes; Add Urine Microscopic? YES; Bacteria Urine TRACE /hpf; Bilirubin Urine Neg (Negative); Blood Urine Trace (Negative); Glucose Urine UA Norm (Normal); Ketones Urine 1+ (Negative); Leukocyte Esterase Urine Negative (Negative); Mucus Urine TRACE /hpf; Nitrate Urine Negative (Negative); Protein Urine Neg (Negative); RBC Urine 0-4 /hpf (0-2); Squamous Epithelial Cell Urine 0-4 /hpf (0-5); Urine Appearance Clear (CLEAR); Urine Color Yellow (Yellow); Urobilinogen Urine Norm (Negative); WBC Urine 25-40 /hpf (0-5); pH Urine 5 (5-7)
[2021-12-25 23:04] LABS: Lactic Sepsis W/Reflex 1.7 mmol/L (0.5-2.2)
[2021-12-25 23:05] LABS: Alanine Aminotransferase 18 U/L (0-41); Alkaline Phosphatase 63 IU/L (40-130); Anion Gap 20.9 (5-19); Aspartate Amino Transferase 21 U/L (0-40); Blood Urea Nitrogen 22 mg/dL (8-23); Calcium 9.4 mg/dL (8.5-10.5); Carbon Dioxide 23 mmol/L (22-29); Chloride 89 mmol/L (98-107); Globulin 3.2 g/dL (1.3-4.6); Glucose 151 mg/dL (65-115); Osmolality Calculated 274 mOsm/kg (285-295); Potassium 3.9 mmol/L (3.5-5.1); Sodium 129 mmol/L (136-145); Total Bilirubin 0.4 mg/dL (0.15-1.2); Total Protein 7.2 g/dL (6.6-8.7)
[2021-12-25 23:06] LABS: Ammonia 10 umol/L (16-60)
[2021-12-25 23:14] LABS: SARS Covid-2 Antigen Negative (Negative)
[2021-12-25 23:33] LABS: ABG PCO2 31.7 mmHg (35-45); Arterial Blood Gas Hematocrit 45.9 % (42-52); Base Excess ABG 2.2 mmol/L (-2.0-2.0); Blood Gas Allen Test Pos; Blood Gas Sample Site Radial, right; Blood Gas Sample Type Arterial; HCO3 ABG 24.7 mmol/L (22-26)
[2021-12-26] VITALS (12 sets, daily range): BP systolic 106–150; BP diastolic 66–87; PULSE 76–107; RESP 18–27; TEMP 36.3–37.4; O2SAT 92–98; BMI 25.7
[2021-12-26] MEDS: cefTRIAXone 1,000 MG in sodium chloride 0.9% (plus) 50 ML 100 MG IV (00:28)
--- NOTE | 2021-12-26 01:44 | PC.NURSE ---
ADMIT NOTE Pt received to floor from ER at 0135. Is poorly responsive. Opens eyes and occ will answer yes or no occ to questions but mostly just doesn't answer. Was unable to tell me his name but does respond to Uzair Unable to get any admission info from pt. VS check done and has low grade temp. Incont large amt urine on arrival to floor. Depends changed. Redness/chaffing to bilat buttocks. [place] ointment applied. Has some scattered small scabbed sores noted. Small scabbed sore to second toe on Left foot. O2 in place at 2l per NC. Bed alarm on for safety.
--- NOTE | 2021-12-26 06:06 | PC.NURSE ---
SHIFT NOTE Has been resting since arrival to floor. No distress noted. Incont of urine and changed. Does open his eyes and said good morning to me this morning. Also said he was doing ok then closed eyes and was back asleep. Telemetry showing SR
--- NOTE | 2021-12-26 06:31 | P.HP_ITS ---
Providers/Chief Complaint Admitting Physician: Janae Robledo MD Chief Complaint: AMS History of Present Illness Uzair Jackson is a 81 year old male sent from assisted today on 2nd day in a row due to c/o fever and AMS that started 2 days ago. No history is availabel from patient due to AMS, curently unable to reach [facility] [address]. Per chart review Starr has a PMH hypertension, CVA with left junaid-motor deficit, hyperlipidemia, left carotid artery stenosis status post endarterectomy, diabetes mellitus type II, BPH with urinary obstruction and chronic indwelling [place], positional vertigo, and depression/anxiety Currently feberile in [facility] ER with T max 101F, leukocytsois , + UA from 12/24. CT head without acute change. Review of Systems General: Reports: ROS unobtainable due to medical condition and ROS unobtainable due to mental status Medications/Allergies Home Medications Medication Instructions Recorded Confirmed Last Taken Type finasteride 5 mg tablet 5 mg PO DAILY #30 tab 09/14/20 12/26/21 12/24/21 08:00 Rx Med Plus See Rx Instructions .ROUTE .COMPLEX 12/24/21 12/26/21 12/24/21 08:00 History acetaminophen 325 mg tablet 325 mg PO QID PRN 12/24/21 12/26/21 12/23/21 History (Tylenol) amlodipine 10 mg tablet 10 mg PO DAILY 12/24/21 12/26/21 12/24/21 08:00 History cephalexin 500 mg capsule 500 mg PO Q6H 10 Days #40 cap 12/24/21 12/26/21 Unknown Rx clopidogrel 75 mg tablet 75 mg PO DAILY 12/24/21 12/26/21 12/24/21 08:00 History dimenhydrinate 50 mg tablet 50 mg PO Q12H PRN 12/24/21 12/26/21 12/24/21 08:00 History famotidine 20 mg tablet 20 mg PO DAILY 12/24/21 12/26/21 12/24/21 08:00 History hydrochlorothiazide 25 mg tablet 25 mg PO DAILY 12/24/21 12/26/21 12/24/21 08:00 History magnesium hydroxide 400 mg/5 mL 400 mg PO DAILY PRN 12/24/21 12/26/21 12/23/21 13:39 History oral suspension (Milk of Magnesia) metoprolol succinate 50 mg 50 mg PO DAILY 12/24/21 12/26/21 12/24/21 08:00 History tablet,extended release 24 hr ondansetron HCl 8 mg tablet 8 mg PO Q8H 12/24/21 12/26/21 12/24/21 08:00 History sennosides 8.6 mg-docusate sodium 1 tab-cap PO Q12H PRN 12/24/21 12/26/21 Unknown History 50 mg tablet (Senna Plus) tamsulosin 0.4 mg capsule 0.4 mg PO BID 12/24/21 12/26/21 12/24/21 08:00 History Allergies Allergy/AdvReac Type Severity Reaction Status Date / Time No Known Allergies Allergy Verified 12/24/21 15:19 PFSH Acute PFSH: Medical History BPH loc w urin obs/LUTS CAD (coronary artery disease) Carotid stenosis HTN (hypertension) Type 2 diabetes mellitus Surgical History No pertinent past surgical history Social History Lives independently: No Housing: [facility] Vitals/I&O/Wt Last Vital Signs Temp 98.9 F 12/26/21 04:00 Pulse 94 12/26/21 04:00 Resp 20 H 12/26/21 04:00 BP 123/74 12/26/21 04:00 Pulse Ox 95 12/26/21 04:00 12/25/21 12/25/21 12/26/21 14:59 22:59 06:59 Intake Total 50 / 50 Balance 50 / 50 Weight last 48 hrs Weight 78.925 kg Weight 102.058 kg Physical Exam Narrative: GEN: lethargic, obtunded, best response os opening eyes to calling name without other significant participation CVS: S1S2 N RS: CTA B/L Abd: Soft, nt/nd , bs+ CUSTOMS INVESTIGATOR: unable to assess Data : 12/25/21 22:30 12/25/21 22:30 Micro: Microbiology 12/25/21 22:44 Blood Culture - Preliminary Blood SPECIMEN COLLECTED 12/25/21 22:30 Blood Culture - Preliminary Blood SPECIMEN COLLECTED Other data: Radiology Impressions Chest X-Ray 12/25/21 IMPRESSION: 1. No definite CHF or pneumonia. 2. Other findings discussed above. Head CT 12/25/21:59 IMPRESSION: 1. No acute intracranial hemorrhage or mass effect. 2. Changes of microvascular disease, and small old lacunar infarcts. 3. No definite acute infarct by CT, see above. 4. Paranasal sinus findings as discussed above. 5. Other findings discussed above. Laboratory Results WBC 13.7 10^3/uL (4.0-10.0) H 12/25/21 22:30 RBC 5.63 10^6/uL (4.1-5.3) H 12/25/21: Hgb 15.6 g/dL (11.7-16.6) 12/25/21: Hct 46.2 % (42.0-52.0) 12/25/21: MCV 82.1 fl (80-94) 12/25/21: MCH 27.7 pg (28.0-34.0) L 12/25/21: MCHC 33.8 g/dL (30.0-36.0) 12/25/21: RDW 14.5 % (12.1-15.1) 12/25/21: Plt Count 222 10^3/cmm (130-400) 12/25/21: MPV 10.4 fL (7.4-10.4) 12/25/21: Neut % (Auto) 84.6 % 12/25/21: Lymph % (Auto) 5.1 % 12/25/21: [place] % (Auto) 8.9 % 12/25/21: Eos % (Auto) 0.0 % 12/25/21: Baso % (Auto) 0.3 % 12/25/21: Neut # (Auto) 11.58 10^3/uL (1.8-7.7) H 12/25/21: Lymph # (Auto) 0.7 10^3/uL (0.8-4.8) L 12/25/21: [place] # (Auto) 1.2 10^3/uL (0.2-0.9) H 12/25/21 22:30 Eos # (Auto) 0.0 10^3/uL (0.0-0.8) 12/25/21 22:30 Baso # (Auto) 0.0 10^3/uL (0.0-0.1) 12/25/21 22:30 Nucleated RBC % (auto) 0 % 12/25/21 22:30 Nucleated RBCs # 0.0 /100WBC 12/25/21 22:30 PT 13.50 SECONDS (12.1-14.9) 12/25/21 22:30 INR 1.00 (0.8-1.2) 12/25/21 22:30 Specimen Type Arterial 12/25/21 21:59 Sample Site Radial, right 12/25/21 21:59 ABG pH 7.50 (7.35-7.45) H 12/25/21 21:59 ABG pCO2 31.7 mmHg (35-45) L 12/25/21 21:59 ABG pO2 81.0 mmHg (80.0-100.0) 12/25/21 21:59 ABG HCO3 24.7 mmol/L (22-26) 12/25/21 21:59 ABG Base Excess 2.2 mmol/L (-2.0-2.0) H 12/25/21 21:59 Alonso Test Pos 12/25/21 21:59 Hematocrit 45.9 % (42-52) 12/25/21 21:59 O2 Delivery Device None 12/25/21 21:59 Breast Splitter ID [place] 12/25/21 21:59 Sodium 129 mmol/L (136-145) L 12/25/21 22:30 Potassium 3.9 mmol/L (3.5-5.1) 12/25/21 22:30 Chloride 89 mmol/L (98-107) L 12/25/21 22:30 Carbon Dioxide 23 mmol/L (22-29) 12/25/21 22:30 Anion Gap 20.9 (5-19) H 12/25/21 22:30 BUN 22 mg/dL (8-23) 12/25/21 22:30 Creatinine 0.9 mg/dL (0.7-1.2) 12/25/21 22:30 GFR Calculation Not Reportable 12/25/21: Glucose 151 mg/dL (65-115) H 12/25/21: Calculated Osmolality 274 mOsm/kg (285-295) L 12/25/21 Lactic Acid 1.7 mmol/L (0.5-2.2) 12/25/21: Calcium 9.4 mg/dL (8.5-10.5) 12/25/21: Total Bilirubin 0.4 mg/dL (0.15-1.2) 12/25/21: AST 21 U/L (0-40) 12/25/21 ALT 18 U/L (0-41) 12/25/21 Alkaline Phosphatase 63 IU/L (40-130) 12/25/21: Ammonia 10 umol/L (16-60) L 12/25/21: Total Protein 7.2 g/dL (6.6-8.7) 12/25/21: Albumin 4.0 g/dL (3.5-5.2) 12/25/21: Globulin 3.2 g/dL (1.3-4.6) 12/25/21: Urine Color Yellow (Yellow) 12/25/21: Urine Appearance Clear (CLEAR) 12/25/21: Urine pH 5 (5-7) 12/25/21: Ur Specific [place] 1.020 (1.005-1.030) 12/25/21: Urine Protein Neg (Negative) 12/25/21: Urine Glucose (UA) Norm (Normal) 12/25/21: Urine Ketones 1+ (Negative) H 12/25/21: Urine Blood Trace (Negative) H 12/25/21: Urine Nitrate Negative (Negative) 12/25/21 Urine Bilirubin Neg (Negative) 12/25/21: Urine Urobilinogen Norm mg/dL (Negative) 12/25/21: Ur Leukocyte Esterase Negative (Negative) 12/25/21: Urine RBC 0-4 /hpf (0-2) H 12/25/21: Urine WBC 25-40 /hpf (0-5) H 12/25/21 22:38 Ur Squamous Epith Cells 0-4 /hpf (0-5) H 12/25/21 22:38 Amorphous Sediment Not Reportable 12/25/21 22:38 Urine Bacteria Trace /hpf (NONE) 12/25/21 22:38 Urine Mucus Trace /hpf 12/25/21 22:38 Urine Yeast 1+ /hpf H 12/25/21 22:38 SARS-CoV-2 Ag (Rapid) Negative (Negative) 12/25/21 22:28 A&P Assessment and plan (1) AMS (altered mental status): may be related to underlying UTI + Ua from 12/24 , has a h/o urinary retention and BPH Zosyn empirically for treatment Blood cx taken and ending Urine cx remains pending Clinically dehydrated with dry parched skin, IVF NS @ 75cc /hr continue home doses of antihypertensives CXR without consolidation rapid covid negative unknown baseline mentation at this time Status: Acute (2) Acute UTI: Status: Acute Attestations Medical Necessity Statement*: >2midnight admission anticipated for iv abx, treatment of UTI, acute encephalopathy Coding Level of Care Code Acute Supervisor Drawing for [facility] Fwd Diagnoses AMS (altered mental status) R41.82 Acute UTI N39.0
[2021-12-26] MEDS: sodium chloride 0.9% 1,000 ML 75 ML IV ×2 (07:07→20:44)
[2021-12-26] MEDS: piperacillin-tazobactam 3.375 GM in sodium chloride 0.9% (plus) 50 ML IV ×3 (07:08→22:53)
[2021-12-26 07:12] LABS: Glucose Point of Care 177 mg/dL (70-110)
--- NOTE | 2021-12-26 10:15 | PC.CHAP ---
Pastoral Care Encounter/Spiritual Assessment Type of Contact [] Declined wood sash and frame carpenter visit [] Patient/Family/Request visit [] Outpatient visit [] Follow-up visit [] Physician referral [] Code/Alert [x] Routine visit [] Staff referral [] Actively dying [x] Patient sleeping [] Family support [] [] Out of room [] Palliative care [] [] Receiving care in room [] Pre-surgical visit [] Trauma [] Long length of stay [] ICU visit [] Other: Relational/Emotional Strength [] Patient feels connected with others/family/visitors/staff [] Distress [] Loneliness/isolation [] Abandonment Spirituality of Patient [] Person of Caitlin [] Attends Caodaism of their Caitlin [] Believes in Prayer [] Reads Bible or Anabaptism materials [] There are Spiritual issues to be addressed Pathology Assistant Interventions [] Prayer [] Active listening [] Non-anxious presence [] Spiritual/emotional support [] Crisis/trauma care [] Spiritual counseling [] Bereavement support [] Provided bereavement packet [] Provided Bible/devotional materials [] Provided toy/stuffed animal, coloring book to patient or family member [] Provided Communion [] Anointing/[place] [] Salvation [] Completed spiritual assessment [] Other: Impact on Illness or Injury [] Angry [] Fearful [] Anxious [] Often cries [] Exhaustion [] Unable to work [] Unable to attend orthodoxy [] Unable to walk/stand [] Unable to read [] Unable to drive [] Unable to eat/drink [] Unable to sleep [] Unable to be with family [] Patient intubated [] Other: Summary Time spent with patient
[2021-12-26 11:17] LABS: Basophils % 0.3 %; Eosinophils # 0.1 10^3/uL (0.0-0.8); Eosinophils % 0.6 %; Hematocrit 41.3 % (42.0-52.0); Hemoglobin 13.5 g/dL (11.7-16.6); Lymphocytes # 1.2 10^3/uL (0.8-4.8); Lymphocytes % 11.1 %; Mean Corpuscular HGB Conc 32.7 g/dL (30.0-36.0); Mean Corpuscular Hemoglobin 27.6 pg (28.0-34.0); Mean Corpuscular Volume 84.3 fl (80-94); Mean Platelet Volume 10.8 fL (7.4-10.4); Monocytes # 1.4 10^3/uL (0.2-0.9); Monocytes % 13.1 %; Neutrophils % 74.1 %; Nucleated Red Blood Cells % 0 %; Platelet Count 202 10^3/cmm (130-400); Red Cell Distribution Width 14.7 % (12.1-15.1); White Blood Count 10.6 10^3/uL (4.0-10.0)
[2021-12-26 11:47] LABS: Alanine Aminotransferase 14 U/L (0-41); Albumin Level 3.1 g/dL (3.5-5.2); Alkaline Phosphatase 48 IU/L (40-130); Anion Gap 15.5 (5-19); Aspartate Amino Transferase 15 U/L (0-40); Blood Urea Nitrogen 25 mg/dL (8-23); Calcium 8.6 mg/dL (8.5-10.5); Carbon Dioxide 22 mmol/L (22-29); Chloride 94 mmol/L (98-107); Globulin 3.6 g/dL (1.3-4.6); Glucose 173 mg/dL (65-115); Iron 19 ug/dL (59-158); Osmolality Calculated 275 mOsm/kg (285-295); Potassium 3.5 mmol/L (3.5-5.1); Sodium 128 mmol/L (136-145); Total Bilirubin 0.4 mg/dL (0.15-1.2); Total Iron Binding Capacity 211 mcg/dl; Total Protein 6.7 g/dL (6.6-8.7); Unsaturated Iron Binding 192 ug/dL (112-347)
[2021-12-26 11:55] LABS: Procalcitonin 0.59 ng/mL (0-0.5); Vitamin B12 216 pg/mL (232-1245)
[2021-12-26 11:57] LABS: Folate Level 18.7 ng/mL (4.5-32.2)
--- NOTE | 2021-12-26 12:34 | PM.MISC ---
Miscellaneous Note Note: Admitted early today morning. On examination laying comfortably in bed. Maintaining and protecting airway. On 1 L saturating 92%. Difficult to wake up. Admission ABG appreciated. Plan: Continue with IV fluids and antibiotics. Repeat CBC and BMP. Urine lites to be added to urinalysis from last night to rule out SIADH given hyponatremia. CT abdomen pelvis without contrast to rule out obstructive uropathy. Follow-up cultures. NPO. Switch from oral metoprolol to IV metoprolol given patient's inability to take oral medications currently and to prevent him from going into tachycardia. Hold for systolic blood pressure of less than 100 mmHg.
[2021-12-26] MEDS: metoprolol tartrate 1 mg/1 mL SDV 5 mL 2.5 MG IVP ×2 (13:04→16:23)
[2021-12-26 16:09] LABS: Potassium, Radom Urine 52 mmol/L; Urine Random Chloride 86 mmol/L; Urine Random Sodium 78 mmol/L
[2021-12-26] MEDS: tamsulosin 0.4 mg Capsule PO (16:23)
[2021-12-26] MEDS: acetaminophen 325 mg Tablet 650 MG PO (18:01)
[2021-12-27] VITALS (7 sets, daily range): BP systolic 118–151; BP diastolic 68–93; PULSE 67–101; RESP 15–19; TEMP 36.7–37.2; O2SAT 92–97
[2021-12-27] MEDS: metoprolol tartrate 1 mg/1 mL SDV 5 mL 2.5 MG IVP ×3 (00:38→12:09)
[2021-12-27] MEDS: acetaminophen 325 mg Tablet 650 MG PO (00:58)
[2021-12-27 05:38] LABS: Basophils % 0.6 %; Eosinophils # 0.1 10^3/uL (0.0-0.8); Eosinophils % 1.9 %; Hematocrit 37.3 % (42.0-52.0); Hemoglobin 12.4 g/dL (11.7-16.6); Lymphocytes # 0.9 10^3/uL (0.8-4.8); Lymphocytes % 13.5 %; Mean Corpuscular HGB Conc 33.2 g/dL (30.0-36.0); Mean Corpuscular Hemoglobin 27.8 pg (28.0-34.0); Mean Corpuscular Volume 83.6 fl (80-94); Mean Platelet Volume 10.7 fL (7.4-10.4); Monocytes # 1.2 10^3/uL (0.2-0.9); Monocytes % 17.3 %; Neutrophils # 4.47 10^3/uL (1.8-7.7); Neutrophils % 65.5 %; Nucleated Red Blood Cells % 0 %; Platelet Count 174 10^3/cmm (130-400); Red Blood Count 4.46 10^6/uL (4.1-5.3); Red Cell Distribution Width 14.6 % (12.1-15.1); White Blood Count 6.8 10^3/uL (4.0-10.0)
[2021-12-27 05:54] LABS: Alanine Aminotransferase 14 U/L (0-41); Albumin Level 3.1 g/dL (3.5-5.2); Alkaline Phosphatase 45 IU/L (40-130); Anion Gap 12.5 (5-19); Aspartate Amino Transferase 16 U/L (0-40); Blood Urea Nitrogen 21 mg/dL (8-23); Calcium 8.2 mg/dL (8.5-10.5); Carbon Dioxide 23 mmol/L (22-29); Chloride 95 mmol/L (98-107); Globulin 3.3 g/dL (1.3-4.6); Glucose 175 mg/dL (65-115); Osmolality Calculated 271 mOsm/kg (285-295); Potassium 3.5 mmol/L (3.5-5.1); Sodium 127 mmol/L (136-145); Total Bilirubin 0.4 mg/dL (0.15-1.2); Total Protein 6.4 g/dL (6.6-8.7)
[2021-12-27 05:57] LABS: Chol HDL Ratio 3.91 mg/dL (1.0-5.00); Cholesterol 125 mg/dL (0-200); HDL Cholesterol 32 mg/dL (60-100); LDL Cholesterol Calculated 64 mg/dL (50-129); Triglycerides 144 mg/dL (0-150); VLDL Cholestrol Calculation 29 mg/dL (0-30)
[2021-12-27] MEDS: piperacillin-tazobactam 3.375 GM in sodium chloride 0.9% (plus) 50 ML IV ×3 (06:01→23:20)
--- NOTE | 2021-12-27 08:00 | CT_ITS ---
WS: [id number] CT ABDOMEN AND PELVIS NONCONTRAST HISTORY: uti, sepsis TECHNIQUE: Imaging performed through the abdomen and pelvis. Coronal and sagittal reformats are submi tted. All CT scans at [facility] use at least one of these dose optimization techniques: auto mated exposure control; mA and/or kV adjustment per patient size (includes targeted exams where dose is matched to clinical indication); or iterative reconstruction. DLP: 1865.9 mGy.cm COMPARISON: 12/24/2021 Lower thorax: Dependent changes and mild pneumonitis at the lung bases. No increasing consolidation. Moderately enlarged heart. No effusion. Small hiatal hernia. There is significant artifact through the lower chest and abdomen by patient's arms. Liver: Normal size liver. No mass or bile duct dilatation. Gallbladder: Present. Artifact in the gallbladder from the patient's arms. Pancreas: Atrophied. Spleen: Normal. Adrenal glands: Normal. No mass. Right kidney: Normal size kidney. Again noted is the RIGHT renal cyst that was recently described. Ce ntral nonobstructing calcifications. No hydronephrosis or hydroureter. Left kidney: Normal size kidney. Several small cysts which are previously described. Nonobstructing c alcifications in the central kidney and vascular calcifications. No renal obstruction. Aorta: Moderate to severe atherosclerosis abdominal aorta. No aneurysm. Atherosclerosis continues int o the common iliac arteries. Heavy calcification continues into the mesenteric arteries. Severe splen ic artery calcification. No free fluid, intraperitoneal air or significant lymphadenopathy. GI tract: The appendix is not identified. No secondary findings of appendicitis. Moderate distention of the stomach with fluid and air. No small bowel obstruction. Tortuous overlapping loops of colon. S everal diverticula in the distal colon. No evidence for acute diverticulitis. More focal fecal retent ion at the rectum. Abdominal wall: Negative. No hernia. Pelvis: No free fluid or adenopathy. Osseous structures: No osteoblastic or osteolytic bone disease. Mild bilateral narrowing of the hip j oints. Mild SI joint sclerosis. There are a few scattered sclerotic foci within the pelvis consistent with bone islands. Remote healing fracture in the inferior RIGHT lateral thorax. CT/CT abdomen pelvis wo con [id number] IMPRESSION: 1. Study performed without IV contrast which limits evaluation for acute infla mmatory process or abscess. 2. Bilateral renal cysts with no renal obstruction. 3. Moderate distention of the urinary bladder. 4. Mild diverticulosis without acute diverticulitis. 5. The appendix is not identified. 6. Mild pneumonitis at the lung bases, unchanged. 7. Advanced atherosclerosis aorta and mesenteric arteries.
--- NOTE | 2021-12-27 09:16 | PC.NURSE ---
Patient off unit to CT.
--- NOTE | 2021-12-27 09:50 | PC.CHAP ---
Pastoral Care Encounter/Spiritual Assessment Type of Contact [] Declined cellophane wrapping examiner visit [] Patient/Family/Request visit [] Outpatient visit [] Follow-up visit [] Physician referral [] Code/Alert [x] Routine visit [] Staff referral [] Actively dying [] Patient sleeping [] Family support [] [] Out of room [] Palliative care [] [] Receiving care in room [] Pre-surgical visit [] Trauma [] Long length of stay [] ICU visit [] Other: Relational/Emotional Strength [] Patient feels connected with others/family/visitors/staff [] Distress [] Loneliness/isolation [] Abandonment Spirituality of Patient [x] Person of Caitlin [] Attends Jehovah'S Witness of their Caitlin [x] Believes in Prayer [] Reads Bible or Congregation materials [] There are Spiritual issues to be addressed Curator Of Manuscripts Interventions [x] Prayer [] Active listening [] Non-anxious presence [] Spiritual/emotional support [] Crisis/trauma care [] Spiritual counseling [] Bereavement support [] Provided bereavement packet [] Provided Bible/devotional materials [] Provided toy/stuffed animal, coloring book to patient or family member [] Provided Communion [] Anointing/[place] [] Salvation [x] Completed spiritual assessment [] Other: Impact on Illness or Injury [] Angry [] Fearful [] Anxious [] Often cries [] Exhaustion [] Unable to work [] Unable to attend religion [] Unable to walk/stand [] Unable to read [] Unable to drive [] Unable to eat/drink [] Unable to sleep [] Unable to be with family [] Patient intubated [] Other: Summary Time spent with patient 5 min
--- NOTE | 2021-12-27 10:44 | PC.NURSE ---
1015 Patient returned to unit.
[2021-12-27] MEDS: sodium chloride 0.9% 1,000 ML 75 ML IV ×2 (10:49→23:20)
[2021-12-27] MEDS: pantoprazole DR 40 mg Tablet PO (10:50)
[2021-12-27] MEDS: clopidogrel 75 mg Tablet PO (10:50)
[2021-12-27] MEDS: tamsulosin 0.4 mg Capsule PO ×2 (10:50→18:07)
[2021-12-27] MEDS: amlodipine 10 mg Tablet PO (10:50)
[2021-12-27] MEDS: finasteride 5 mg Tablet PO (10:50)
[2021-12-27] MEDS: cyanocobalamin 1,000 mcg/mL SDV 1000 MCG IM (10:51)
[2021-12-27] MEDS: sodium chloride 1 gm Tablet PO ×2 (12:09→18:07)
--- NOTE | 2021-12-27 12:47 | PM.PN ---
Subjective Subjective: No acute events overnight. Patient is a lot more awake today. He is alert to self, place. Does not know why he is in the hospital. Knows it snowing outside. Asking when directly dialysis can go a. Denies any pain, nausea, vomiting. Has remained hemodynamically stable and afebrile. Vitals/I&O/Wt Last Vital Signs Temp 98.8 F 12/27/21 08:41 Pulse 73 12/27/21 08:41 Resp 15 12/27/21 08:41 BP 146/84 12/27/21 08:41 Pulse Ox 92 12/27/21 08:41 12/26/21 12/27/21 12/27/21 22:59 06:59 14:59 Intake Total 1150 / 1440 410 / 1850 1290 / 1290 Output Total 400 / 400 Balance 750 / 1040 410 / 1450 1290 / 1290 Weight last 48 hrs Weight 78.925 kg Weight 102.058 kg Physical Exam Narrative: General: No acute distress, AO x two on 2 L nasal cannula HEENT: PERRLA, pupils bilaterally equal and reactive Chest: Bilateral bronchial breath sounds, coarse crackles present bilaterally right more than left, equal good air entry bilaterally CVS: S1-S2 regular, no murmurs, no tachycardia, no gallops, no rubs Abdomen: Soft, nontender, no organomegaly, bowel sounds present Neuro: No focal deficits, no facial deformity, AO x3, power 5/5 in all limbs Data : 12/27/21 05:24 12/27/21 05:24 Micro: Microbiology 12/25/21 22:38 Urine Culture - Preliminary Urine,Clean Catch 12/25/21 22:44 Blood Culture - Preliminary Blood NEGATIVE TO DATE 12/25/21 22:30 Blood Culture - Preliminary Blood NEGATIVE TO DATE A&P Assessment and plan (1) AMS (altered mental status): Resolving. Most likely secondary to UTI along with hyponatremia May be related to underlying UTI Status: Acute (2) Acute UTI: UA concerning for UTI. CT abdomen pelvis negative for obstructive uropathy. Follow blood culture, urine culture. MRSA swab pending. Continue with normal saline at 75 cc/h. Continue with Zosyn. We will change current antibiotics as per culture results. Status: Acute (3) Hyponatremia: Status: Acute (4) Vitamin B12 deficiency: Status: Acute (5) HTN (hypertension): Status: Acute (6) Type 2 diabetes mellitus: Status: Acute Plan Hyponatremia: Baseline sodium normal. Currently 127. Urine analysis and lites appreciated. Continue fluids as above. Start on oral salt tablets. Hypertension: Goal blood pressure less than 140/90 [place]. Continue with home dose of amlodipine. Restart home dose of metoprolol. Stop IV metoprolol. Vitamin B12 deficiency: Continue with vitamin B12 supplementation once daily for 3 days. No significant anemia currently. Type 2 diabetes mellitus: Check A1c. Insulin sliding scale. Full code. Mechanical soft diet. Lovenox for DVT prophylaxis. Attestations Medical Necessity Statement*: Requires further hospitalization for management of altered mental status secondary to UTI, hyponatremia, vitamin B12 deficiency Time Spent in Patient Care: Greater than 35 minutes Coding Level of Care Code Acute Search Specialist for [facility] Fwd Diagnoses AMS (altered mental status) R41.82 Acute UTI N39.0 Hyponatremia E87.1 Vitamin B12 deficiency E53.8 HTN (hypertension) I10 Type 2 diabetes mellitus E11.9
[2021-12-27] MEDS: metoprolol succinate ER (24 HR) 50 mg Tablet PO (14:46)
[2021-12-27 17:10] LABS: Glucose Point of Care 243 mg/dL (70-110)
[2021-12-27 17:41] LABS: Estmated Average Glucose 186; Hemoglobin A1C 8.1 % (4.0-6.0)
[2021-12-27] MEDS: insulin lispro 100 unit/1 mL SUBCUT ×2 (18:07→21:59)
[2021-12-27 21:12] LABS: Glucose Point of Care 196 mg/dL (70-110)
[2021-12-28] VITALS (11 sets, daily range): BP systolic 121–160; BP diastolic 62–105; PULSE 50–108; RESP 17–22; TEMP 36.6–37.1; O2SAT 90–100
[2021-12-28 03:04] LABS: Basophils % 0.4 %; Eosinophils # 0.1 10^3/uL (0.0-0.8); Eosinophils % 0.7 %; Hematocrit 40.7 % (42.0-52.0); Hemoglobin 13.2 g/dL (11.7-16.6); Lymphocytes # 0.6 10^3/uL (0.8-4.8); Lymphocytes % 8.2 %; Mean Corpuscular HGB Conc 32.4 g/dL (30.0-36.0); Mean Corpuscular Hemoglobin 27.3 pg (28.0-34.0); Mean Corpuscular Volume 84.3 fl (80-94); Mean Platelet Volume 10.7 fL (7.4-10.4); Monocytes % 14.9 %; Neutrophils # 5.02 10^3/uL (1.8-7.7); Neutrophils % 75.2 %; Nucleated Red Blood Cells % 0 %; Platelet Count 183 10^3/cmm (130-400); Red Blood Count 4.83 10^6/uL (4.1-5.3); Red Cell Distribution Width 14.3 % (12.1-15.1); White Blood Count 6.7 10^3/uL (4.0-10.0)
[2021-12-28 03:31] LABS: Alanine Aminotransferase 18 U/L (0-41); Albumin Level 3.2 g/dL (3.5-5.2); Alkaline Phosphatase 52 IU/L (40-130); Anion Gap 14.3 (5-19); Aspartate Amino Transferase 17 U/L (0-40); Blood Urea Nitrogen 10 mg/dL (8-23); Calcium 8.5 mg/dL (8.5-10.5); Carbon Dioxide 21 mmol/L (22-29); Chloride 100 mmol/L (98-107); Globulin 3.7 g/dL (1.3-4.6); Glucose 211 mg/dL (65-115); Osmolality Calculated 279 mOsm/kg (285-295); Potassium 3.3 mmol/L (3.5-5.1); Sodium 132 mmol/L (136-145); Total Bilirubin 0.4 mg/dL (0.15-1.2); Total Protein 6.9 g/dL (6.6-8.7)
[2021-12-28 03:37] LABS: Procalcitonin 0.27 ng/mL (0-0.5)
[2021-12-28] MEDS: piperacillin-tazobactam 3.375 GM in sodium chloride 0.9% (plus) 50 ML IV ×3 (06:05→22:36)
[2021-12-28 06:39] LABS: Glucose Point of Care 227 mg/dL (70-110)
[2021-12-28] MEDS: insulin lispro 100 unit/1 mL SUBCUT ×3 (10:35→22:37)
[2021-12-28] MEDS: sodium chloride 1 gm Tablet PO ×2 (10:35→18:30)
[2021-12-28] MEDS: pantoprazole DR 40 mg Tablet PO (10:35)
[2021-12-28] MEDS: finasteride 5 mg Tablet PO (10:36)
[2021-12-28] MEDS: amlodipine 10 mg Tablet PO (10:36)
[2021-12-28] MEDS: tamsulosin 0.4 mg Capsule PO ×2 (10:36→18:30)
[2021-12-28] MEDS: cyanocobalamin 1,000 mcg Tablet 500 MCG PO (10:36)
[2021-12-28] MEDS: clopidogrel 75 mg Tablet PO (10:36)
[2021-12-28] MEDS: metoprolol succinate ER (24 HR) 50 mg Tablet PO (10:36)
--- NOTE | 2021-12-28 11:20 | P.PN_ITS ---
Subjective Subjective: Patient was seen examined this morning, currently he is alert awake, to self and person, recognize his a son. Has not eaten his breakfast, denies any active complaints. Medications: Medication Review Details: Generic Name Dose Route Start Last Admin Trade Name Shyla PRN Reason Stop Dose Admin Acetaminophen 650 mg 12/26/21 06:24 12/27/21 00:58 Acetaminophen 32 5 Mg Tablet PO 650 mg Q6H PRN Administration Mild/Mod Pain Or Temp >/= 101 Amlodipine Besylat e 10 mg 12/26/21 09:00 12/28/21 10:36 Amlodipine 10 Mg Tablet PO 10 mg DAILY RAFA Administration Clopidogrel Bisulf ate 75 mg 12/26/21 09:00 12/28/21 10:36 Clopidogrel 75 M g Tablet PO 75 mg DAILY RAFA Administration Cyanocobalamin 1,000 mcg 12/27/21 09:00 12/28/21 10:37 Cyanocobalamin 1 ,000 Mcg/Ml Sdv IM 12/30/21 08:59 Not Given DAILY RAFA Cyanocobalamin 500 mcg 12/28/21 09:00 12/28/21 10:36 Cyanocobalamin 1 ,000 Mcg Tablet PO 500 mcg DAILY RFAA Administration Finasteride 5 mg 12/26/21 09:00 12/28/21 10:36 Finasteride 5 Mg Tablet PO 5 mg DAILY RAFA Administration Sodium Chloride 1,000 mls @ 75 ml s/hr 12/26/21 06:30 12/28/21 16:32 Sodium Chloride 0.9% IV 75 mls/hr .[id number] RAFA Administration Piperacillin Sod/T azobactam 50 mls @ 12.5 mls /hr 12/26/21 06:45 12/28/21 16:32 Sod 3.375 gm/ So dium Chloride IV 12.5 mls/hr Q8H RAFA Administration Insulin Human Lisp ro 0 unit 12/27/21 18:00 12/28/21 15:56 Insulin Lispro 1 00 Unit/1 Ml SUBCUT Not Given WM&BEDTIME RAFA Protocol Metoprolol Succina te 50 mg 12/27/21 12:55 12/28/21 10:36 Metoprolol Succi idalmis Er (24 Hr) 50 Mg Tablet PO 50 mg DAILY RAFA Administration Pantoprazole Sodiu m 40 mg 12/26/21 09:00 12/28/21 10:[address] 40 Mg Tablet PO 40 mg DAILY RAFA Administration Sodium Chloride 1 gm 12/27/21 11:05 12/28/21 10:35 Sodium Chloride 1 Gm Tablet PO 1 gm BID RAFA Administration Tamsulosin HCl 0.4 mg 12/26/21 09:00 12/28/21 10:36 Tamsulosin 0.4 M g Capsule PO 0.4 mg BID RAFA Administration Vitals/I&O/Wt Last Vital Signs Temp 98.0 F 12/28/21 07:57 Pulse 96 12/28/21 07:57 Resp 20 H 12/28/21 07:57 BP 156/79 12/28/21 07:57 Pulse Ox 100 12/28/21 07:57 12/27/21 12/28/21 12/28/21 22:59 06:59 14:59 Intake Total 50 / 1340 988.75 / 2328.75 50 / 50 Output Total 200 / 450 300 / 750 Balance -150 / 890 688.75 / 1578.75 50 / 50 Physical Exam Narrative: Alert awake oriented to self and place HENMT: COMMON NORMALS: normocephalic and atraumatic HEAD & SCALP: normocephalic and atraumatic Eye: GENERAL EYE: appearance normal, both eyes and all related structures Chest: COMMONS NORMALS: normal inspection of the chest and normal palpation of entire chest wall CHEST: Yes Symmetrical chest wall rise Resp: COMMON NORMALS: normal respiratory effort, No retractions and No use of accessory muscles EFFORT & INSPECTION: Yes symmetric chest movement Cardio: COMMON NORMALS: regular rate, regular rhythm, S1 normal heart sound present, S2 normal heart sound present, No gallops present (Cardio), No murmurs present (Cardio), No rub (Cardio) and Peripheral pulses 2+ throughout RATE: regular rate RHYTHM: regular rhythm HEART SOUNDS: S1 normal heart sound present and S2 normal heart sound present PERIPHERAL PULSES: Peripheral pulses 2+ throughout GI: COMMON NORMALS: Normal to inspection, nondistended, normoactive bowel sounds present, Soft to palpation, non-tender, No hepatosplenomegaly present and no masses AUSCULTATION: Yes normoactive bowel sounds PALPATION: Yes Soft to palpation and Yes No hepatosplenomegaly present RECTAL EXAM: Yes deferred Data : 12/28/21 02:29 12/28/21 02:29 Micro: Microbiology 12/25/21 22:38 Urine Culture - Final Urine,Clean Catch 12/26/21 10:25 MRSA Culture - Final Nose A&P Assessment and plan (1) AMS (altered mental status): Resolving. Most likely secondary to UTI along with hyponatremia May be related to underlying UTI Status: Acute (2) Acute UTI: UA concerning for UTI. CT abdomen pelvis negative for obstructive uropathy. Follow blood culture, urine culture. MRSA swab pending. Continue with normal saline at 75 cc/h. Continue with Zosyn. We will change current antibiotics as per culture results. 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 sent from [facility] 2nd day in a row due to c/o fever and AMS that started 2 days ago. #Metabolic encephalopathy: Likely secondary to hyponatremia , UTI : Currently patient is more or less at his baseline mentation. CT head wo con: No acute intracranial pathology CT abdomen pelvis wo con: Bilateral renal cysts with no renal obstruction. Moderate distention of the urinary bladder. Blood culture negative till date. Urinalysis dirty Urine culture negative MRSA PCR negative X-ray chest: No infiltrates no effusion, no pneumothorax Continue Zosyn for now, will de-escalate antibiotics as the clinical condition of the patient is improved, and cultures have remained negative so far. #Hyponatremia: Likely hypovolemic hyponatremia Baseline sodium normal. Urine random sodium 78 Urine random potassium 52 Urine random chloride 86 TSH: Normal Cortisol: Urine specific gravity: 1.020 Continue to monitor BMP Continue normal saline 75 CC/HR On oral salt tablets. #Hypertension: Continue amlodipine, continue metoprolol #Vitamin B12 deficiency: Continue with vitamin B12 supplementation once daily No significant anemia currently. #History of CVA: With residual left-sided weakness: Continue Plavix #History of left carotid artery stenosis: S/p left CEA #BPH with urinary production : Has chronic indwelling [place] Continue tamsulosin # Type 2 diabetes mellitus: Check A1c. Insulin sliding scale. #Disposition: Prior op for longterm placement has been initiated. Full code. Mechanical soft diet. Lovenox for DVT prophylaxis. Attestations Medical Necessity Statement*: Patient is still in hospital for management of metabolic encephalopathy Time Spent in Patient Care: Greater than 35 minutes (>than 50% of time spent in counselling and/or direct pt care on unit) . Coding Level of Care Code Acute Respiratory Therapist for [facility] Fwd Exam Detailed Diagnoses AMS (altered mental status) R41.82 Acute UTI N39.0 Hyponatremia E87.1 Vitamin B12 deficiency E53.8 HTN (hypertension) I10 Type 2 diabetes mellitus E11.9
[2021-12-28] MEDS: sodium chloride 0.9% 1,000 ML 75 ML IV (16:32)
[2021-12-28 17:25] LABS: Glucose Point of Care 194 mg/dL (70-110)
[2021-12-28 17:25] LABS: Glucose Point of Care 296 mg/dL (70-110)
[2021-12-28] MEDS: potassium chloride ER 20 mEq Tablet 40 MEQ PO (18:30)
[2021-12-28 22:31] LABS: Glucose Point of Care 215 mg/dL (70-110)
[2021-12-29] VITALS (8 sets, daily range): BP systolic 128–159; BP diastolic 72–89; PULSE 69–91; RESP 16–20; TEMP 36.6–36.9; O2SAT 94–97
[2021-12-29] MEDS: sodium chloride 0.9% 1,000 ML 75 ML IV (05:03)
[2021-12-29] MEDS: piperacillin-tazobactam 3.375 GM in sodium chloride 0.9% (plus) 50 ML IV ×2 (05:54→16:45)
[2021-12-29 07:34] LABS: Glucose Point of Care 218 mg/dL (70-110)
[2021-12-29] MEDS: sodium chloride 1 gm Tablet PO ×2 (08:38→16:45)
[2021-12-29] MEDS: tamsulosin 0.4 mg Capsule PO ×2 (08:38→16:45)
[2021-12-29] MEDS: finasteride 5 mg Tablet PO (08:38)
[2021-12-29] MEDS: cyanocobalamin 1,000 mcg Tablet 500 MCG PO (08:38)
[2021-12-29] MEDS: cyanocobalamin 1,000 mcg/mL SDV 1000 MCG IM (08:39)
[2021-12-29] MEDS: amlodipine 10 mg Tablet PO (08:39)
[2021-12-29] MEDS: metoprolol succinate ER (24 HR) 50 mg Tablet PO (08:39)
[2021-12-29] MEDS: pantoprazole DR 40 mg Tablet PO (08:39)
[2021-12-29] MEDS: clopidogrel 75 mg Tablet PO (08:39)
[2021-12-29] MEDS: insulin lispro 100 unit/1 mL SUBCUT ×3 (09:36→17:45)
--- NOTE | 2021-12-29 10:10 | PC.SOCIAL ---
IMM Update Pg. [address] [facility] updated and reviewed with patient, copy provided. Called and explained to patient's over the phone who verbalized understanding as well.
[2021-12-29 11:02] LABS: Glucose Point of Care 492 mg/dL (70-110)
[2021-12-29 17:06] LABS: Glucose Point of Care 351 mg/dL (70-110)
--- NOTE | 2021-12-29 17:28 | P.PN_ITS ---
Subjective Subjective: Patient was seen examined this morning,was seen eating lunch, says that he has difficulty without teeth. No reported events overnight. Medications: Medication Review Details: Generic Name Dose Route Start Last Admin Trade Name Shyla PRN Reason Stop Dose Admin Acetaminophen 650 mg 12/26/21 06:24 12/27/21 00:58 Acetaminophen 32 5 Mg Tablet PO 650 mg Q6H PRN Administration Mild/Mod Pain Or Temp >/= 101 Amlodipine Besylat e 10 mg 12/26/21 09:00 12/28/21 10:36 Amlodipine 10 Mg Tablet PO 10 mg DAILY RAFA Administration Clopidogrel Bisulf ate 75 mg 12/26/21 09:00 12/28/21 10:36 Clopidogrel 75 M g Tablet PO 75 mg DAILY RAFA Administration Cyanocobalamin 1,000 mcg 12/27/21 09:00 12/28/21 10:37 Cyanocobalamin 1 ,000 Mcg/Ml Sdv IM 12/30/21 08:59 Not Given DAILY RAFA Cyanocobalamin 500 mcg 12/28/21 09:00 12/28/21 10:36 Cyanocobalamin 1 ,000 Mcg Tablet PO 500 mcg DAILY RAFA Administration Finasteride 5 mg 12/26/21 09:00 12/28/21 10:36 Finasteride 5 Mg Tablet PO 5 mg DAILY RAFA Administration Sodium Chloride 1,000 mls @ 75 ml s/hr 12/26/21 06:30 12/28/21 16:32 Sodium Chloride 0.9% IV 75 mls/hr .[id number] RAFA Administration Piperacillin Sod/T azobactam 50 mls @ 12.5 mls /hr 12/26/21 06:45 12/28/21 16:32 Sod 3.375 gm/ So dium Chloride IV 12.5 mls/hr Q8H RAFA Administration Insulin Human Lisp ro 0 unit 12/27/21 18:00 12/28/21 15:56 Insulin Lispro 1 00 Unit/1 Ml SUBCUT Not Given WM&BEDTIME RAFA Protocol Metoprolol Succina te 50 mg 12/27/21 12:55 12/28/21 10:36 Metoprolol Succi idalmis Er (24 Hr) 50 Mg Tablet PO 50 mg DAILY RAFA Administration Pantoprazole Sodiu m 40 mg 12/26/21 09:00 12/28/21 10:[address] 40 Mg Tablet PO 40 mg DAILY RAFA Administration Sodium Chloride 1 gm 12/27/21 11:05 12/28/21 10:35 Sodium Chloride 1 Gm Tablet PO 1 gm BID RAFA Administration Tamsulosin HCl 0.4 mg 12/26/21 09:00 12/28/21 10:36 Tamsulosin 0.4 M g Capsule PO 0.4 mg BID RAFA Administration Vitals/I&O/Wt Last Vital Signs Temp 98.2 F 12/29/21 15:48 Pulse 69 12/29/21 15:48 Resp 20 H 12/29/21 15:48 BP 132/74 12/29/21 15:48 Pulse Ox 97 12/29/21 15:48 12/29/21 12/29/21 12/29/21 06:59 14:59 22:59 Intake Total 988.75 / 3048.75 290 / 290 Output Total 500 / 500 800 / 1300 Balance 988.75 / 2748.75 -210 / -210 -800 / -1010 Physical Exam Narrative: Alert awake oriented to self and place HENMT: COMMON NORMALS: normocephalic and atraumatic HEAD & SCALP: normocephalic and atraumatic Eye: GENERAL EYE: appearance normal, both eyes and all related structures Chest: COMMONS NORMALS: normal inspection of the chest and normal palpation of entire chest wall CHEST: Yes Symmetrical chest wall rise Resp: COMMON NORMALS: normal respiratory effort, No retractions and No use of accessory muscles EFFORT & INSPECTION: Yes symmetric chest movement Cardio: COMMON NORMALS: regular rate, regular rhythm, S1 normal heart sound present, S2 normal heart sound present, No gallops present (Cardio), No murmurs present (Cardio), No rub (Cardio) and Peripheral pulses 2+ throughout RATE: regular rate RHYTHM: regular rhythm HEART SOUNDS: S1 normal heart sound present and S2 normal heart sound present PERIPHERAL PULSES: Peripheral pulses 2+ throughout GI: COMMON NORMALS: Normal to inspection, nondistended, normoactive bowel sounds present, Soft to palpation, non-tender, No hepatosplenomegaly present and no masses AUSCULTATION: Yes normoactive bowel sounds PALPATION: Yes Soft to palpation and Yes No hepatosplenomegaly present RECTAL EXAM: Yes deferred Extremity: OTHER: 3+ B/L Pitting edema in both lower extremity Data : 12/28/21 02:29 12/28/21 02:29 A&P Assessment and plan (1) AMS (altered mental status): Resolving. Most likely secondary to UTI along with hyponatremia May be related to underlying UTI Status: Acute (2) Acute UTI: UA concerning for UTI. CT abdomen pelvis negative for obstructive uropathy. Follow blood culture, urine culture. MRSA swab pending. Continue with normal saline at 75 cc/h. Continue with Zosyn. We will change current antibiotics as per culture results. 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 sent from [facility] 2nd day in a row due to c/o fever and AMS that started 2 days ago. #Metabolic encephalopathy: Likely secondary to hyponatremia , UTI : Currently patient is more or less at his baseline mentation. CT head wo con: No acute intracranial pathology CT abdomen pelvis wo con: Bilateral renal cysts with no renal obstruction. Moderate distention of the urinary bladder. Blood culture negative till date. Urinalysis dirty Urine culture negative MRSA PCR negative X-ray chest: No infiltrates no effusion, no pneumothorax Disontinue Zosyn , will de-escalate antibiotics as the clinical condition of the patient is improved, and cultures have remained negative so far. Started on ceftriaxone 1 g daily #Hyponatremia: Likely hypovolemic hyponatremia Baseline sodium normal. Urine random sodium 78 Urine random potassium 52 Urine random chloride 86 TSH: Normal Cortisol: Urine specific gravity: 1.020 Continue to monitor BMP Continue normal saline 75 CC/HR On oral salt tablets. #Hypertension: Continue amlodipine, continue metoprolol #Vitamin B12 deficiency: Continue with vitamin B12 supplementation once daily No significant anemia currently. #History of CVA: Continue Plavix #History of left carotid artery stenosis: S/p left CEA #BPH with urinary production : Has chronic indwelling [place] Continue tamsulosin # Type 2 diabetes mellitus: Check A1c:8.1 Lantus 10 units subcutaneous at night MDSSI Monitor fingerstick glucose Carbohydrate consistent diet #Disposition: Prior op for [facility] placement has been initiated. Full code. Mechanical soft diet. Lovenox for DVT prophylaxis. Attestations Medical Necessity Statement*: Patient is still in hospital for management of metabolic encephalopathy. Coding Level of Care Code Acute Air Conditioning Service Technician for [facility] Fwd Diagnoses AMS (altered mental status) R41.82 Acute UTI N39.0 Hyponatremia E87.1 Vitamin B12 deficiency E53.8 HTN (hypertension) I10 Type 2 diabetes mellitus E11.9
[2021-12-29 20:06] LABS: Glucose Point of Care 247 mg/dL (70-110)
[2021-12-30] VITALS (7 sets, daily range): BP systolic 120–149; BP diastolic 69–82; PULSE 0–95; RESP 16–18; TEMP 36.3–37.1; O2SAT 94–98
[2021-12-30 03:41] LABS: Basophils # 0.1 10^3/uL (0.0-0.1); Basophils % 0.6 %; Eosinophils # 0.2 10^3/uL (0.0-0.8); Eosinophils % 2.8 %; Hematocrit 40.6 % (42.0-52.0); Hemoglobin 13.3 g/dL (11.7-16.6); Lymphocytes # 1.2 10^3/uL (0.8-4.8); Lymphocytes % 13.2 %; Mean Corpuscular HGB Conc 32.8 g/dL (30.0-36.0); Mean Corpuscular Hemoglobin 27.9 pg (28.0-34.0); Mean Corpuscular Volume 85.1 fl (80-94); Mean Platelet Volume 10.2 fL (7.4-10.4); Monocytes % 10.9 %; Neutrophils # 6.24 10^3/uL (1.8-7.7); Neutrophils % 71.6 %; Nucleated Red Blood Cells % 0 %; Platelet Count 214 10^3/cmm (130-400); Red Blood Count 4.77 10^6/uL (4.1-5.3); Red Cell Distribution Width 14.6 % (12.1-15.1); White Blood Count 8.7 10^3/uL (4.0-10.0)
[2021-12-30 04:10] LABS: Anion Gap 16.1 (5-19); Blood Urea Nitrogen 17 mg/dL (8-23); Calcium 8.9 mg/dL (8.5-10.5); Carbon Dioxide 20 mmol/L (22-29); Chloride 107 mmol/L (98-107); Glucose 276 mg/dL (65-115); Osmolality Calculated 299 mOsm/kg (285-295); Potassium 4.1 mmol/L (3.5-5.1); Sodium 139 mmol/L (136-145)
[2021-12-30] MEDS: metoprolol succinate ER (24 HR) 50 mg Tablet PO (08:12)
[2021-12-30] MEDS: finasteride 5 mg Tablet PO (08:12)
[2021-12-30] MEDS: clopidogrel 75 mg Tablet PO (08:12)
[2021-12-30] MEDS: amlodipine 10 mg Tablet PO (08:12)
[2021-12-30] MEDS: cyanocobalamin 1,000 mcg Tablet 500 MCG PO (08:12)
[2021-12-30] MEDS: sodium chloride 1 gm Tablet PO ×2 (08:12→16:51)
[2021-12-30] MEDS: tamsulosin 0.4 mg Capsule PO ×2 (08:12→16:52)
[2021-12-30] MEDS: pantoprazole DR 40 mg Tablet PO (08:13)
[2021-12-30] MEDS: insulin lispro 100 unit/1 mL SUBCUT ×3 (08:29→17:17)
--- NOTE | 2021-12-30 10:42 | PM.PN ---
Subjective Subjective: Patient was seen examined this morning, overall he is doing fine, currently worried about his . His other vitals and labs have been reviewed. Medications: Medication Review Details: Generic Name Dose Route Start Last Admin Trade Name Shyla PRN Reason Stop Dose Admin Acetaminophen 650 mg 12/26/21 06:24 12/27/21 00:58 Acetaminophen 32 5 Mg Tablet PO 650 mg Q6H PRN Administration Mild/Mod Pain Or Temp >/= 101 Amlodipine Besylat e 10 mg 12/26/21 09:00 12/28/21 10:36 Amlodipine 10 Mg Tablet PO 10 mg DAILY RAFA Administration Clopidogrel Bisulf ate 75 mg 12/26/21 09:00 12/28/21 10:36 Clopidogrel 75 M g Tablet PO 75 mg DAILY RAFA Administration Cyanocobalamin 1,000 mcg 12/27/21 09:00 12/28/21 10:37 Cyanocobalamin 1 ,000 Mcg/Ml Sdv IM 12/30/21 08:59 Not Given DAILY RAFA Cyanocobalamin 500 mcg 12/28/21 09:00 12/28/21 10:36 Cyanocobalamin 1 ,000 Mcg Tablet PO 500 mcg DAILY RAFA Administration Finasteride 5 mg 12/26/21 09:00 12/28/21 10:36 Finasteride 5 Mg Tablet PO 5 mg DAILY RAFA Administration Sodium Chloride 1,000 mls @ 75 ml s/hr 12/26/21 06:30 12/28/21 16:32 Sodium Chloride 0.9% IV 75 mls/hr .[id number] RAFA Administration Piperacillin Sod/T azobactam 50 mls @ 12.5 mls /hr 12/26/21 06:45 12/28/21 16:32 Sod 3.375 gm/ So dium Chloride IV 12.5 mls/hr Q8H RAFA Administration Insulin Human Lisp ro 0 unit 12/27/21 18:00 12/28/21 15:56 Insulin Lispro 1 00 Unit/1 Ml SUBCUT Not Given WM&BEDTIME RAFA Protocol Metoprolol Succina te 50 mg 12/27/21 12:55 12/28/21 10:36 Metoprolol Succi idalmis Er (24 Hr) 50 Mg Tablet PO 50 mg DAILY RAFA Administration Pantoprazole Sodiu m 40 mg 12/26/21 09:00 12/28/21 10:[address] 40 Mg Tablet PO 40 mg DAILY RAFA Administration Sodium Chloride 1 gm 12/27/21 11:05 12/28/21 10:35 Sodium Chloride 1 Gm Tablet PO 1 gm BID RFAA Administration Tamsulosin HCl 0.4 mg 12/26/21 09:00 12/28/21 10:36 Tamsulosin 0.4 M g Capsule PO 0.4 mg BID RAFA Administration Vitals/I&O/Wt Last Vital Signs Temp 98.2 F 12/30/21 08:00 Pulse 80 12/30/21 08:00 Resp 18 12/30/21 08:00 BP 149/78 12/30/21 08:00 Pulse Ox 95 12/30/21 08:00 12/29/21 12/30/21 12/30/21 22:59 06:59 14:59 Intake Total 1000 / 1290 360 / 360 Output Total 800 / 1300 Balance 200 / -10 360 / 360 Physical Exam Narrative: Alert awake oriented to self and place Const: COMMON NORMALS: patient oriented x3 HENMT: COMMON NORMALS: normocephalic and atraumatic HEAD & SCALP: normocephalic and atraumatic Eye: GENERAL EYE: appearance normal, both eyes and all related structures Chest: COMMONS NORMALS: normal inspection of the chest and normal palpation of entire chest wall CHEST: Yes Symmetrical chest wall rise Resp: COMMON NORMALS: normal respiratory effort, No retractions and No use of accessory muscles EFFORT & INSPECTION: Yes symmetric chest movement Cardio: COMMON NORMALS: regular rate, regular rhythm, S1 normal heart sound present, S2 normal heart sound present, No gallops present (Cardio), No murmurs present (Cardio), No rub (Cardio) and Peripheral pulses 2+ throughout RATE: regular rate RHYTHM: regular rhythm HEART SOUNDS: S1 normal heart sound present and S2 normal heart sound present PERIPHERAL PULSES: Peripheral pulses 2+ throughout GI: COMMON NORMALS: Normal to inspection, nondistended, normoactive bowel sounds present, Soft to palpation, non-tender, No hepatosplenomegaly present and no masses AUSCULTATION: Yes normoactive bowel sounds PALPATION: Yes Soft to palpation and Yes No hepatosplenomegaly present RECTAL EXAM: Yes deferred Extremity: OTHER: 3+ B/L Pitting edema in both lower extremity Neuro: COMMON NORMALS: patient oriented x3 Data : 12/30/21 03:15 12/30/21 03:15 A&P Assessment and plan (1) AMS (altered mental status): Resolving. Most likely secondary to UTI along with hyponatremia May be related to underlying UTI Status: Acute (2) Acute UTI: UA concerning for UTI. CT abdomen pelvis negative for obstructive uropathy. Follow blood culture, urine culture. MRSA swab pending. Continue with normal saline at 75 cc/h. Continue with Zosyn. We will change current antibiotics as per culture results. 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 sent from skilled nursing 2nd day in a row due to c/o fever and AMS that started 2 days ago. #Metabolic encephalopathy: Likely secondary to hyponatremia , UTI : Currently patient is more or less at his baseline mentation. CT head wo con: No acute intracranial pathology CT abdomen pelvis wo con: Bilateral renal cysts with no renal obstruction. Moderate distention of the urinary bladder. Blood culture negative till date. Urinalysis dirty Urine culture negative MRSA PCR negative X-ray chest: No infiltrates no effusion, no pneumothorax Disontinue Zosyn , will de-escalate antibiotics as the clinical condition of the patient is improved, and cultures have remained negative so far. Started on ceftriaxone 1 g daily #Hyponatremia: Likely hypovolemic hyponatremia: Resolved Baseline sodium normal. Urine random sodium 78 Urine random potassium 52 Urine random chloride 86 TSH: Normal Cortisol: Urine specific gravity: 1.020 Continue to monitor BMP Continue normal saline 75 CC/HR On oral salt tablets. #Hypertension: Continue amlodipine, continue metoprolol #Vitamin B12 deficiency: Continue with vitamin B12 supplementation once daily No significant anemia currently. #History of CVA: Continue Plavix #History of left carotid artery stenosis: S/p left CEA #BPH with urinary production : Has chronic indwelling [place] Continue tamsulosin # Type 2 diabetes mellitus: A1c:8.1 Lantus 10 units subcutaneous at night MDSSI Monitor fingerstick glucose Carbohydrate consistent diet #Disposition: Prior op for long term placement has been initiated. Full code. Mechanical soft diet. Lovenox for DVT prophylaxis. Attestations Medical Necessity Statement*: Prior op for long term placement has been initiated. Patient is ready to be discharged to the skilled nursing. Likely discharge on Friday. Coding Level of Care Code Acute Check Processor for [facility] Fwd Exam Detailed Diagnoses AMS (altered mental status) R41.82 Acute UTI N39.0 Hyponatremia E87.1 Vitamin B12 deficiency E53.8 HTN (hypertension) I10 Type 2 diabetes mellitus E11.9
[2021-12-30 12:42] LABS: Glucose Point of Care 233 mg/dL (70-110)
[2021-12-30 12:42] LABS: Glucose Point of Care 290 mg/dL (70-110)
[2021-12-30 12:42] LABS: Glucose Point of Care 252 mg/dL (70-110)
[2021-12-30] MEDS: cefTRIAXone 1,000 MG in sodium chloride 0.9% (plus) 50 ML 100 MG IV (16:52)
[2021-12-30 17:16] LABS: Glucose Point of Care 280 mg/dL (70-110)
[2021-12-30 20:21] LABS: Glucose Point of Care 216 mg/dL (70-110)
[2021-12-30] MEDS: insulin glargine 100 units/1 mL 10 UNIT SUBCUT (20:51)
[2021-12-31] VITALS (7 sets, daily range): BP systolic 115–149; BP diastolic 70–75; PULSE 0–80; RESP 16–18; TEMP 36.4–36.9; O2SAT 94–100
[2021-12-31 04:43] LABS: Basophils # 0.1 10^3/uL (0.0-0.1); Basophils % 0.7 %; Eosinophils # 0.3 10^3/uL (0.0-0.8); Eosinophils % 3.1 %; Hemoglobin 13.3 g/dL (11.7-16.6); Lymphocytes # 1.5 10^3/uL (0.8-4.8); Lymphocytes % 16.1 %; Mean Corpuscular HGB Conc 31.7 g/dL (30.0-36.0); Mean Corpuscular Hemoglobin 27.1 pg (28.0-34.0); Mean Corpuscular Volume 85.7 fl (80-94); Mean Platelet Volume 10.8 fL (7.4-10.4); Monocytes # 0.7 10^3/uL (0.2-0.9); Neutrophils # 6.51 10^3/uL (1.8-7.7); Nucleated Red Blood Cells % 0 %; Platelet Count 243 10^3/cmm (130-400); Red Cell Distribution Width 14.6 % (12.1-15.1); White Blood Count 9.2 10^3/uL (4.0-10.0)
[2021-12-31 05:02] LABS: Blood Urea Nitrogen 22 mg/dL (8-23); Calcium 8.8 mg/dL (8.5-10.5); Carbon Dioxide 19 mmol/L (22-29); Chloride 102 mmol/L (98-107); Glucose 260 mg/dL (65-115); Osmolality Calculated 290 mOsm/kg (285-295); Sodium 134 mmol/L (136-145)
[2021-12-31 05:06] LABS: Anion Gap 16.7 (5-19); Potassium 3.7 mmol/L (3.5-5.1)
[2021-12-31] MEDS: insulin lispro 100 unit/1 mL SUBCUT ×3 (09:04→17:11)
[2021-12-31] MEDS: finasteride 5 mg Tablet PO (09:05)
[2021-12-31] MEDS: amlodipine 10 mg Tablet PO (09:05)
[2021-12-31] MEDS: clopidogrel 75 mg Tablet PO (09:05)
[2021-12-31] MEDS: cyanocobalamin 1,000 mcg Tablet 500 MCG PO (09:05)
[2021-12-31] MEDS: sodium chloride 1 gm Tablet PO ×2 (09:05→17:11)
[2021-12-31] MEDS: metoprolol succinate ER (24 HR) 50 mg Tablet PO (09:05)
[2021-12-31] MEDS: tamsulosin 0.4 mg Capsule PO ×2 (09:05→17:11)
[2021-12-31] MEDS: pantoprazole DR 40 mg Tablet PO (09:05)
[2021-12-31 13:00] LABS: Glucose Point of Care 248 mg/dL (70-110)
[2021-12-31 13:01] LABS: Glucose Point of Care 325 mg/dL (70-110)
--- NOTE | 2021-12-31 14:29 | P.PN_ITS ---
Subjective Subjective: Patient was seen examined this morning, no acute events overnight, resting comfortably, was seen Having breakfast today. Medications: Medication Review Details: Generic Name Dose Route Start Last Admin Trade Name Shyla PRN Reason Stop Dose Admin Acetaminophen 650 mg 12/26/21 06:24 12/27/21 00:58 Acetaminophen 32 5 Mg Tablet PO 650 mg Q6H PRN Administration Mild/Mod Pain Or Temp >/= 101 Amlodipine Besylat e 10 mg 12/26/21 09:00 12/28/21 10:36 Amlodipine 10 Mg Tablet PO 10 mg DAILY RAFA Administration Clopidogrel Bisulf ate 75 mg 12/26/21 09:00 12/28/21 10:36 Clopidogrel 75 M g Tablet PO 75 mg DAILY RAFA Administration Cyanocobalamin 1,000 mcg 12/27/21 09:00 12/28/21 10:37 Cyanocobalamin 1 ,000 Mcg/Ml Sdv IM 12/30/21 08:59 Not Given DAILY RAFA Cyanocobalamin 500 mcg 12/28/21 09:00 12/28/21 10:36 Cyanocobalamin 1 ,000 Mcg Tablet PO 500 mcg DAILY RAFA Administration Finasteride 5 mg 12/26/21 09:00 12/28/21 10:36 Finasteride 5 Mg Tablet PO 5 mg DAILY RAFA Administration Sodium Chloride 1,000 mls @ 75 ml s/hr 12/26/21 06:30 12/28/21 16:32 Sodium Chloride 0.9% IV 75 mls/hr .[id number] RAFA Administration Piperacillin Sod/T azobactam 50 mls @ 12.5 mls /hr 12/26/21 06:45 12/28/21 16:32 Sod 3.375 gm/ So dium Chloride IV 12.5 mls/hr Q8H RAFA Administration Insulin Human Lisp ro 0 unit 12/27/21 18:00 12/28/21 15:56 Insulin Lispro 1 00 Unit/1 Ml SUBCUT Not Given WM&BEDTIME RAFA Protocol Metoprolol Succina te 50 mg 12/27/21 12:55 12/28/21 10:36 Metoprolol Succi idalmis Er (24 Hr) 50 Mg Tablet PO 50 mg DAILY RAFA Administration Pantoprazole Sodiu m 40 mg 12/26/21 09:00 12/28/21 10:[address] 40 Mg Tablet PO 40 mg DAILY RAFA Administration Sodium Chloride 1 gm 12/27/21 11:05 12/28/21 10:35 Sodium Chloride 1 Gm Tablet PO 1 gm BID RAFA Administration Tamsulosin HCl 0.4 mg 12/26/21 09:00 12/28/21 10:36 Tamsulosin 0.4 M g Capsule PO 0.4 mg BID RAFA Administration Vitals/I&O/Wt Last Vital Signs Temp 98.5 F 12/31/21 11:32 Pulse 74 12/31/21 11:32 Resp 17 12/31/21 11:32 BP 145/73 12/31/21 11:32 Pulse Ox 94 12/31/21 11:32 12/30/21 12/31/21 12/31/21 22:59 06:59 14:59 Intake Total 50 / 890 840 / 840 Output Total 720 / 720 475 / 1195 Balance -670 / 170 -475 / -305 840 / 840 Physical Exam Narrative: Alert awake oriented to self and place Const: COMMON NORMALS: patient oriented x3 HENMT: COMMON NORMALS: normocephalic and atraumatic HEAD & SCALP: normocephalic and atraumatic Eye: GENERAL EYE: appearance normal, both eyes and all related structures Chest: COMMONS NORMALS: normal inspection of the chest and normal palpation of entire chest wall CHEST: Yes Symmetrical chest wall rise Resp: COMMON NORMALS: normal respiratory effort, No retractions and No use of accessory muscles EFFORT & INSPECTION: Yes symmetric chest movement Cardio: COMMON NORMALS: regular rate, regular rhythm, S1 normal heart sound present, S2 normal heart sound present, No gallops present (Cardio), No murmurs present (Cardio), No rub (Cardio) and Peripheral pulses 2+ throughout RATE: regular rate RHYTHM: regular rhythm HEART SOUNDS: S1 normal heart sound present and S2 normal heart sound present PERIPHERAL PULSES: Peripheral pulses 2+ throughout GI: COMMON NORMALS: Normal to inspection, nondistended, normoactive bowel sounds present, Soft to palpation, non-tender, No hepatosplenomegaly present and no masses AUSCULTATION: Yes normoactive bowel sounds PALPATION: Yes Soft to palpation and Yes No hepatosplenomegaly present RECTAL EXAM: Yes deferred Neuro: COMMON NORMALS: patient oriented x3 Data : 12/31/21 03:52 12/31/21 03:52 Micro: Microbiology 12/25/21 22:44 Blood Culture - Final Blood NO GROWTH AFTER 5 DAYS 12/25/21 22:30 Blood Culture - Final Blood NO GROWTH AFTER 5 DAYS A&P Assessment and plan (1) AMS (altered mental status): Resolving. Most likely secondary to UTI along with hyponatremia May be related to underlying UTI Status: Acute (2) Acute UTI: UA concerning for UTI. CT abdomen pelvis negative for obstructive uropathy. Follow blood culture, urine culture. MRSA swab pending. Continue with normal saline at 75 cc/h. Continue with Zosyn. We will change current antibiotics as per culture results. Status: Acute (3) Hyponatremia: Status: Acute (4) Vitamin B12 deficiency: Status: Acute (5) HTN (hypertension): Status: Acute (6) Type 2 diabetes mellitus: Status: Acute Plan 81 year old male with past medical history of hypertension, CVA with left junaid-m otor deficit, hyperlipidemia, left carotid artery stenosis status post endarterectomy, diabetes mellitus type II, BPH with urinary obstruction and chronic indwelling H[place], positional vertigo, and depression/anxiety. sent from long-term 2nd day in a row due to c/o fever and AMS that started 2 days ago. #Metabolic encephalopathy: Likely secondary to hyponatremia , UTI : Currently patient is more or less at his baseline mentation. CT head wo con: No acute intracranial pathology CT abdomen pelvis wo con: Bilateral renal cysts with no renal obstruction. Moderate distention of the urinary bladder. Blood culture negative till date. Urinalysis dirty Urine culture negative MRSA PCR negative X-ray chest: No infiltrates no effusion, no pneumothorax Disontinue Zosyn , will de-escalate antibiotics as the clinical condition of the patient is improved, and cultures have remained negative so far. Started on ceftriaxone 1 g daily #Hyponatremia: Likely hypovolemic hyponatremia: Resolved Baseline sodium normal. Urine random sodium 78 Urine random potassium 52 Urine random chloride 86 TSH: Normal Cortisol: Urine specific gravity: 1.020 Continue to monitor BMP Continue normal saline 75 CC/HR On oral salt tablets. #Hypertension: Continue amlodipine, continue metoprolol #Vitamin B12 deficiency: Continue with vitamin B12 supplementation once daily No significant anemia currently. #History of CVA: Continue Plavix #History of left carotid artery stenosis: S/p left CEA #BPH with urinary production : Has chronic indwelling H[place] Continue tamsulosin # Type 2 diabetes mellitus: A1c:8.1 Lantus 10 units subcutaneous at night MDSSI Monitor fingerstick glucose Carbohydrate consistent diet #Disposition: Prior op for [facility] placement has been initiated. Full code. Mechanical soft diet. Lovenox for DVT prophylaxis. Attestations Medical Necessity Statement*: Patient is currently awaiting long-term placement Coding Level of Care Code Acute Separator Operator for [facility] Fwd Diagnoses AMS (altered mental status) R41.82 Acute UTI N39.0 Hyponatremia E87.1 Vitamin B12 deficiency E53.8 HTN (hypertension) I10 Type 2 diabetes mellitus E11.9
--- NOTE | 2021-12-31 16:21 | PC.SOCIAL ---
IMM UPDATED IMM dated and initialed and copy given to patient
[2021-12-31] MEDS: cefTRIAXone 1,000 MG in sodium chloride 0.9% (plus) 50 ML 100 MG IV (17:11)
[2021-12-31 18:38] LABS: SARS Covid-2 Antigen Negative (Negative)
[2021-12-31 20:34] LABS: Glucose Point of Care 295 mg/dL (70-110)
[2021-12-31 20:35] LABS: Glucose Point of Care 317 mg/dL (70-110)
[2021-12-31] MEDS: insulin glargine 100 units/1 mL 10 UNIT SUBCUT (20:42)
[2022-01-01 04:00] VITALS: BP 143/74; PULSE 60; RESP 16; TEMP 36.6; O2SAT 94
[2022-01-01 05:21] LABS: Basophils # 0.1 10^3/uL (0.0-0.1); Basophils % 0.7 %; Eosinophils # 0.2 10^3/uL (0.0-0.8); Eosinophils % 2.4 %; Hematocrit 37.9 % (42.0-52.0); Lymphocytes # 1.3 10^3/uL (0.8-4.8); Lymphocytes % 14.6 %; Mean Corpuscular HGB Conc 31.7 g/dL (30.0-36.0); Mean Corpuscular Hemoglobin 27.2 pg (28.0-34.0); Mean Corpuscular Volume 85.9 fl (80-94); Mean Platelet Volume 10.4 fL (7.4-10.4); Monocytes # 0.8 10^3/uL (0.2-0.9); Monocytes % 9.1 %; Neutrophils # 6.44 10^3/uL (1.8-7.7); Neutrophils % 72.2 %; Nucleated Red Blood Cells % 0 %; Platelet Count 237 10^3/cmm (130-400); Red Blood Count 4.41 10^6/uL (4.1-5.3); Red Cell Distribution Width 14.6 % (12.1-15.1); White Blood Count 8.9 10^3/uL (4.0-10.0)
[2022-01-01 05:40] LABS: Anion Gap 12.7 (5-19); Blood Urea Nitrogen 22 mg/dL (8-23); Calcium 7.8 mg/dL (8.5-10.5); Carbon Dioxide 22 mmol/L (22-29); Chloride 103 mmol/L (98-107); Glucose 304 mg/dL (65-115); Osmolality Calculated 293 mOsm/kg (285-295); Potassium 3.7 mmol/L (3.5-5.1); Sodium 134 mmol/L (136-145)
[2022-01-01 07:27] VITALS: BP 144/73; PULSE 64; RESP 18; TEMP 36.9; O2SAT 96
[2022-01-01 07:33] VITALS: BP 162/80; PULSE 52; RESP 17; TEMP 37.1; O2SAT 93
--- NOTE | 2022-01-01 07:59 | PM.DCS ---
Discharge Providers Date of Admission: 12/26/21 07:32 Date of Discharge: January 01, 2022 Attending Provider at Admission: Janae Robledo MD Attending Provider at Discharge: Damian Ann MD Diagnoses at Discharge Discharge Diagnosis (1) AMS (altered mental status): Status: Acute (2) Acute UTI: Status: Inactive (3) Hyponatremia: Status: Acute (4) Vitamin B12 deficiency: Status: Acute (5) HTN (hypertension): Status: Acute (6) Type 2 diabetes mellitus: Status: Acute Reason for Visit Reason for Visit: AMS Hospital Course Hospital Course 81 year old male with past medical history of hypertension, CVA with left junaid-motor deficit, hyperlipidemia, left carotid artery stenosis status post endarterectomy, diabetes mellitus type II, BPH with urinary obstruction and chronic indwelling [place], positional vertigo, and depression/anxiety. [facility] due to c/o fever and AMS that started 2 days ago. He was admitted for the management of acute metabolic encephalopathy: Secondary to UTI hyponatremia:B12 deficiency. CT head wo con: No acute intracranial pathology , CT abdomen pelvis wo con: Bilateral renal cysts with no renal obstruction. Moderate distention of the urinary bladder. , Blood culture negative till date. Urinalysis dirty, Urine culture negative MRSA PCR negative X-ray chest: No infiltrates no effusion, no pneumothorax. Patient was kept on broad-spectrum antibiotics during the hospital stay, antibiotics were not continued on discharge. Hyponatremia was likely euvolemic hyponatremia responded well to IV hydration, as well as oral salt tablets, at the time of discharge serum sodium had normalized, for his history of diabetes, is being discharged on Metformin,500 mg po bid he will have to follow-up with primary care physician for further optimization of antidiabetic medication, A1c done during the hospital stay: Was 8.1, for vitamin B12 deficiency he was on oral B12 supplement, it has been continued on discharge, repeat serum B12 level have to be done by the primary care physician in a month, to further tailor the oral supplement. For his history of CVA he was continued on Plavix, for his hypertension he was continued on amlodipine , hydrochlorothiazide and metoprolol on discharge. Patient responded well to above medical management at the time of discharge was at baseline mentation. [facility]. Physical Exam Const: COMMON NORMALS: patient oriented x3 HENMT: COMMON NORMALS: normocephalic and atraumatic HEAD & SCALP: normocephalic and atraumatic Eye: COMMON NORMALS: no scleral icterus GENERAL EYE: appearance normal, both eyes and all related structures Chest: COMMONS NORMALS: normal inspection of the chest and normal palpation of entire chest wall CHEST: Yes Symmetrical chest wall rise Resp: COMMON NORMALS: normal respiratory effort, No retractions, No use of accessory muscles and clear to auscultation bilaterally EFFORT & INSPECTION: Yes symmetric chest movement AUSCULTATION: clear to auscultation bilaterally Cardio: COMMON NORMALS: regular rate, regular rhythm, S1 normal heart sound present, S2 normal heart sound present, No gallops present (Cardio), No murmurs present (Cardio), No rub (Cardio) and Peripheral pulses 2+ throughout RATE: regular rate RHYTHM: regular rhythm HEART SOUNDS: S1 normal heart sound present and S2 normal heart sound present PERIPHERAL PULSES: Peripheral pulses 2+ throughout GI: COMMON NORMALS: Normal to inspection, nondistended, normoactive bowel sounds present, Soft to palpation, non-tender, No hepatosplenomegaly present and no masses AUSCULTATION: Yes normoactive bowel sounds PALPATION: Yes Soft to palpation and Yes No hepatosplenomegaly present RECTAL EXAM: Yes deferred Extremity: COMMON NORMALS: no clubbing, cyanosis or edema and no pedal edema Neuro: COMMON NORMALS: patient oriented x3 Discharge Data Studies Completed and Pending Completed Studies During Hospitalization Category Date Time Status CT abdomen pelvis wo con [id number] Routine Cat Scan 12/27/21 08:[address] head wo con* [id number] Urgent Cat Scan 12/25/21 21:59 Completed XR chest 1V portable [id number] Urgent Exams 12/25/21 21:59 Completed Radiology Impressions Chest X-Ray 12/25/21 21:59 IMPRESSION: 1. No definite CHF or pneumonia. 2. Other findings discussed above. Head CT 12/25/21 21:59 IMPRESSION: 1. No acute intracranial hemorrhage or mass effect. 2. Changes of microvascular disease, and small old lacunar infarcts. 3. No definite acute infarct by CT, see above. 4. Paranasal sinus findings as discussed above. 5. Other findings discussed above. Abdomen/Pelvis CT 12/27/21 08:00 IMPRESSION: 1. Study performed without IV contrast which limits evaluation for acute inflammatory process or abscess. 2. Bilateral renal cysts with no renal obstruction. 3. Moderate distention of the urinary bladder. 4. Mild diverticulosis without acute diverticulitis. 5. The appendix is not identified. 6. Mild pneumonitis at the lung bases, unchanged. 7. Advanced atherosclerosis aorta and mesenteric arteries. Laboratory Results WBC 8.9 10^3/uL (4.0-10.0) 01/01/22 04:56 RBC 4.41 10^6/uL (4.1-5.3) 01/01/22 04:56 Hgb 12.0 g/dL (11.7-16.6) 01/01/22 04:56 Hct 37.9 % (42.0-52.0) L 01/01/22 04:56 MCV 85.9 fl (80-94) 01/01/22 04:56 MCH 27.2 pg (28.0-34.0) L 01/01/22 04:56 MCHC 31.7 g/dL (30.0-36.0) 01/01/22 04:56 RDW 14.6 % (12.1-15.1) 01/01/22 04:56 Plt Count 237 10^3/cmm (130-400) 01/01/22 04:56 MPV 10.4 fL (7.4-10.4) 01/01/22 04:56 Neut % (Auto) 72.2 % 01/01/22 04:56 Lymph % (Auto) 14.6 % 01/01/22 04:56 Benson % (Auto) 9.1 % 01/01/22 04:56 Eos % (Auto) 2.4 % 01/01/22 04:56 Baso % (Auto) 0.7 % 01/01/22 04:56 Neut # (Auto) 6.44 10^3/uL (1.8-7.7) 01/01/22 04:56 Lymph # (Auto) 1.3 10^3/uL (0.8-4.8) 01/01/22 04:56 Benson # (Auto) 0.8 10^3/uL (0.2-0.9) 01/01/22 04:56 Eos # (Auto) 0.2 10^3/uL (0.0-0.8) 01/01/22 04:56 Baso # (Auto) 0.1 10^3/uL (0.0-0.1) 01/01/22 04:56 Nucleated RBC % (auto) 0 % 01/01/22 04:56 Nucleated RBCs # 0.0 /100WBC 01/01/22 04:56 PT 13.50 SECONDS (12.1-14.9) 12/25/21 22:30 INR 1.00 (0.8-1.2) 12/25/21 22:30 Specimen Type Arterial 12/25/21 21:59 Sample Site Radial, right 12/25/21 21:59 ABG pH 7.50 (7.35-7.45) H 12/25/21 21:59 ABG pCO2 31.7 mmHg (35-45) L 12/25/21 21:59 ABG pO2 81.0 mmHg (80.0-100.0) 12/25/21 21:59 ABG HCO3 24.7 mmol/L (22-26) 12/25/21 21:59 ABG Base Excess 2.2 mmol/L (-2.0-2.0) H 12/25/21 21:59 Alonso Test Pos 12/25/21 21:59 Hematocrit 45.9 % (42-52) 12/25/21 21:59 O2 Delivery Device None 12/25/21 21:59 Fastener Technologist ID Hensa 12/25/21 21:59 Sodium 134 mmol/L (136-145) L 01/01/22 04:56 Potassium 3.7 mmol/L (3.5-5.1) 01/01/22 04:56 Chloride 103 mmol/L (98-107) 01/01/22 04:56 Carbon Dioxide 22 mmol/L (22-29) 01/01/22 04:56 Anion Gap 12.7 (5-19) 01/01/22 04:56 BUN 22 mg/dL (8-23) 01/01/22 04:56 Creatinine 0.6 mg/dL (0.7-1.2) L 01/01/22 04:56 GFR Calculation Not Reportable 01/01/22 04:56 Glucose 304 mg/dL (65-115) H 01/01/22 04:56 POC Glucose 317 mg/dL (70-110) H 12/31/21 20:22 Estimat Average Glucose 186 12/27/21 14:00 Hemoglobin A1c 8.1 % (4.0-6.0) H 12/27/21 14:00 Calculated Osmolality 293 mOsm/kg (285-295) 01/01/22 04:56 Lactic Acid 1.7 mmol/L (0.5-2.2) 12/25/21 22:30 Calcium 7.8 mg/dL (8.5-10.5) L 01/01/22 04:56 Iron 19 ug/dL (59-158) L 12/26/21 11:10 TIBC 211 mcg/dl 12/26/21 11:10 % Saturation 9.0 % (20-50) L 12/26/21 11:10 Unsat Iron Binding 192 ug/dL (112-347) 12/26/21 11:10 Total Bilirubin 0.4 mg/dL (0.15-1.2) 12/28/21 02:29 AST 17 U/L (0-40) 12/28/21 02:29 ALT 18 U/L (0-41) 12/28/21 02:29 Alkaline Phosphatase 52 IU/L (40-130) 12/28/21 02:29 Ammonia 10 umol/L (16-60) L 12/25/21 22:30 Total Protein 6.9 g/dL (6.6-8.7) 12/28/21 02:29 Albumin 3.2 g/dL (3.5-5.2) L 12/28/21 02:29 Globulin 3.7 g/dL (1.3-4.6) 12/28/21 02:29 Triglycerides 144 mg/dL (0-150) 12/27/21 05:24 Cholesterol 125 mg/dL (0-200) 12/27/21 05:24 LDL Cholesterol, Calc 64 mg/dL (50-129) 12/27/21 05:24 Total VLDL Cholesterol 29 mg/dL (0-30) 12/27/21 05:24 HDL Cholesterol 32 mg/dL (60-100) L 12/27/21 05:24 Cholesterol/HDL Ratio 3.91 mg/dL (1.0-5.00) 12/27/21 05:24 Vitamin B12 216 pg/mL (232-1245) L 12/26/21 11:10 Folate 18.7 ng/mL (4.5-32.2) 12/26/21 11:10 Procalcitonin 0.27 ng/mL (0-0.5) 12/28/21 02:29 Urine Color Yellow (Yellow) 12/25/21 22:38 Urine Appearance Clear (CLEAR) 12/25/21 22:38 Urine pH 5 (5-7) 12/25/21 22:38 Ur Specific [place] 1.020 (1.005-1.030) 12/25/21 22:38 Urine Protein Neg (Negative) 12/25/21 22:38 Urine Glucose (UA) Norm (Normal) 12/25/21 22:38 Urine Ketones 1+ (Negative) H 12/25/21 22:38 Urine Blood Trace (Negative) H 12/25/21 22:38 Urine Nitrate Negative (Negative) 12/25/21 22:38 Urine Bilirubin Neg (Negative) 12/25/21 22:38 Urine Urobilinogen Norm mg/dL (Negative) 12/25/21 22:38 Ur Leukocyte Esterase Negative (Negative) 12/25/21 22:38 Urine RBC 0-4 /hpf (0-2) H 12/25/21 22:38 Urine WBC 25-40 /hpf (0-5) H 12/25/21 22:38 Ur Squamous Epith Cells 0-4 /hpf (0-5) H 12/25/21 22:38 Amorphous Sediment Not Reportable 12/25/21 22:38 Urine Bacteria Trace /hpf (NONE) 12/25/21 22:38 Urine Mucus Trace /hpf 12/25/21 22:38 Urine Yeast 1+ /hpf H 12/25/21 22:38 Ur Random Sodium 78 mmol/L 12/26/21 22:38 Ur Random Potassium 52 mmol/L 12/26/21 22:38 Ur Random Chloride 86 mmol/L 12/26/21 22:38 SARS-CoV-2 Ag (Rapid) Negative (Negative) 12/31/21 17:30 Vitals Last Vital Signs Temp 98.7 F 01/01/22 07:33 Pulse 52 L 01/01/22 07:33 Resp 17 01/01/22 07:33 BP 162/80 01/01/22 07:33 Pulse Ox 93 01/01/22 07:33 Discharge Plan Discharge Patient Disposition: Xfer SNF Condition: Stable Prescriptions: New metformin 500 mg tablet 500 mg PO BID Qty: 60 3RF cyanocobalamin (vitamin B-12) 1,000 mcg capsule 1,000 mcg PO DAILY 60 Days Qty: 60 0RF Continued finasteride 5 mg tablet 5 mg PO DAILY Qty: 30 2RF acetaminophen [Tylenol] 325 mg Tablet 325 mg PO QID PRN (Reason: Pain) 0RF metoprolol succinate 50 mg Tablet Extended Release 24 Hr 50 mg PO DAILY 0RF ondansetron HCl 8 mg Tablet 8 mg PO Q8H 0RF sennosides-docusate sodium [Senna Plus] 8.6-50 mg Tablet 1 tab-cap PO Q12H PRN (Reason: Constipation) 0RF clopidogrel 75 mg tablet 75 mg PO DAILY 0RF dimenhydrinate 50 mg Tablet 50 mg PO Q12H PRN (Reason: Nausea) 0RF famotidine 20 mg Tablet 20 mg PO DAILY 0RF magnesium hydroxide [Milk of Magnesia] 400 mg/5 mL Suspension 400 mg PO DAILY PRN (Reason: Constipation) 0RF tamsulosin 0.4 mg capsule 0.4 mg PO BID 0RF amlodipine 10 mg tablet 10 mg PO DAILY 0RF hydrochlorothiazide 25 mg tablet 25 mg PO DAILY 0RF Med Plus See Rx Instructions .ROUTE .COMPLEX 0RF Rx Instructions: ;TWO TIMES A DAY FOR PREVENTION Discontinued cephalexin 500 mg capsule 500 mg PO Q6H 10 Days Qty: 40 0RF Discharge Orders: Discharge Order (Routine); Ordered 01/01/22 Ordered By: Damian Ann Discharge Diet: Diabetic Discharge Activity: Increase activity as tolerated Patient Instructions: Metformin (By mouth) Activity Restrictions/Additional Instructions: Please follow up with primary care within 1 week. Discharge Attestations Time Spent in Discharge Care*: greater than 30 min Specific Discharge Activities: educating patient, educating and/or supporting family/caregiver, discussing with pcp/other providers, discussing with housing case manager/social workers/dc planners, documenting/other paperwork and evaluating patient/reviewing data Status at Discharge: Cognitive status at discharge: cognitively intact, Behavioral status at discharge: cooperative, Quality Metrics Clinical Quality Measures [ No reported AMI, CVA or VTE this stay] Coding Level of Care Code Acute Chg FW DC note Diagnoses AMS (altered mental status) R41.82 Acute UTI N39.0 Hyponatremia E87.1 Vitamin B12 deficiency E53.8 HTN (hypertension) I10 Type 2 diabetes mellitus E11.9
[2022-01-01] MEDS: amlodipine 10 mg Tablet PO (08:10)
[2022-01-01] MEDS: clopidogrel 75 mg Tablet PO (08:10)
[2022-01-01] MEDS: pantoprazole DR 40 mg Tablet PO (08:10)
[2022-01-01] MEDS: cyanocobalamin 1,000 mcg Tablet 500 MCG PO (08:10)
[2022-01-01] MEDS: sodium chloride 1 gm Tablet PO (08:10)
[2022-01-01] MEDS: metoprolol succinate ER (24 HR) 50 mg Tablet PO (08:10)
[2022-01-01] MEDS: finasteride 5 mg Tablet PO (08:11)
[2022-01-01] MEDS: tamsulosin 0.4 mg Capsule PO (08:11)
[2022-01-01] MEDS: insulin lispro 100 unit/1 mL SUBCUT ×2 (08:58→12:47)
--- NOTE | 2022-01-01 09:15 | PC.NURSE ---
Rcvd order from Dr Ann to discontinue isolation order
[2022-01-01 11:19] VITALS: BP 132/75; PULSE 100; RESP 18; TEMP 37.1; O2SAT 93
--- NOTE | 2022-01-01 11:23 | PC.NURSE ---
report called to [facility] and given to AICHA Reis. report writer notified patient's Selene and notified her that patient is being discharged today to SNF
[2022-01-01 12:14] LABS: Glucose Point of Care 282 mg/dL (70-110)
[2022-01-01 12:14] LABS: Glucose Point of Care 228 mg/dL (70-110)
--- NOTE | 2022-01-01 15:37 | PC.NURSE ---
Patient taken to SNF via wheelchair by SNF transport.
[2022-01-01 15:38] VITALS: BP 132/75; PULSE 100; RESP 18; TEMP 37.1; O2SAT 93
== END 2022-01-01 15:40 | disposition skilled nursing facility (03) | DRG 689 ==
LOC: ER 23:41 → MEDSURG 23:55
PROVIDERS: Student in an Organized Health Care Education/Training Program; Admitting Provider Student in an Organized Health Care Education/Training Program; Emergency Provider Emergency Medicine; Visit Provider Internal Medicine
DX: N39.0 Urinary tract infection, site not specified (principal); G93.41 Metabolic encephalopathy; E87.1 Hypo-osmolality and hyponatremia; I69.354 Hemiplegia and hemiparesis following cerebral infarction affecting left non-dominant side; E53.8 Deficiency of other specified B group vitamins; I10 Essential (primary) hypertension; E11.9 Type 2 diabetes mellitus without complications; N40.1 Benign prostatic hyperplasia with lower urinary tract symptoms; N13.8 Other obstructive and reflux uropathy; E86.0 Dehydration; Z96.0 Presence of urogenital implants; F41.8 Other specified anxiety disorders; Z79.02 Long term (current) use of antithrombotics/antiplatelets; Z79.84 Long term (current) use of oral hypoglycemic drugs; Z86.79 Personal history of other diseases of the circulatory system
CPT/HCPCS: 36415; 36416; 51701; 70450; 71045; 73630; 73650; 74176; 74177; 80048; 80053; 80061; 81001; 82140; 82436; 82607; 82746; 82803; 82962; 83036; 83540; 83550; 83605; 84133; 84145; 84300; 84443; 85025; 85610; 87040; 87086; 87426; 87641; 96361; 96365; 96372; 96374; 97161; 97165; 97530; 99284; G0378; J0696; J1815 ×2; J2543; J3420; J3490; J7030; Q9967

== ENCOUNTER → 2022-03-25 13:15 | Outpatient (BNVA) | payer MEDICARE, MEDICAID, SELFPAY | PROVIDERS: PCP Nurse Practitioner Family; Visit Provider Nurse Practitioner Family | DX: N40.1 Benign prostatic hyperplasia with lower urinary tract symptoms (principal); R33.9 Retention of urine, unspecified; R82.81 Pyuria | CPT/HCPCS: 51798; 81003; 87077; 87086; 87186; 99213 ==

== ENCOUNTER → 2022-05-03 11:22 | Outpatient (BNVA) | payer MEDICARE, SELFPAY | PROVIDERS: PCP Nurse Practitioner Family; Visit Provider Urology | DX: R33.9 Retention of urine, unspecified (principal) | CPT/HCPCS: 99213 ==

== ENCOUNTER 2022-10-10 09:46 | Outpatient (CLI) | payer MEDICARE, SELFPAY ==
[2022-10-10 15:17] LABS: Influenza A by IFA Negative (Negative); Influenza B by IFA Negative (Negative)
== END 2022-10-10 09:47 | disposition home or self-care (01) ==
PROVIDERS: PCP Nurse Practitioner Family; Visit Provider Family Medicine
DX: Z01.89 Encounter for other specified special examinations (principal)
CPT/HCPCS: 87804

== ENCOUNTER 2023-03-23 08:29 | Emergency (ER) | payer MEDICARE, MEDICAID, SELFPAY ==
[2023-03-23 08:39] VITALS: BP 162/83; PULSE 70; RESP 18; TEMP 36.8; O2SAT 94
[2023-03-23 08:55] LABS: Basophils # 0.1 10^3/uL (0.0-0.1); Basophils % 0.6 %; Eosinophils # 0.4 10^3/uL (0.0-0.8); Eosinophils % 3.7 %; Hematocrit 42.7 % (42.0-52.0); Hemoglobin 13.5 g/dL (11.7-16.6); Lymphocytes # 1.9 10^3/uL (0.8-4.8); Mean Corpuscular HGB Conc 31.6 g/dL (30.0-36.0); Mean Corpuscular Hemoglobin 27.8 pg (28.0-34.0); Mean Corpuscular Volume 87.9 fl (80-94); Mean Platelet Volume 10.1 fL (7.4-10.4); Monocytes # 1.1 10^3/uL (0.2-0.9); Neutrophils # 6.99 10^3/uL (1.8-7.7); Neutrophils % 66.8 %; Nucleated Red Blood Cells % 0 %; Platelet Count 267 10^3/cmm (130-400); Red Blood Count 4.86 10^6/uL (4.1-5.3); Red Cell Distribution Width 15.1 % (12.1-15.1); White Blood Count 10.5 10^3/uL (4.0-10.0)
[2023-03-23 09:01] LABS: Add Urine Culture? No; Add Urine Microscopic? YES; Amorphous Sediment Urine 1+ /hpf; Bacteria Urine TRACE /hpf; Bilirubin Urine Neg (Negative); Blood Urine Neg (Negative); Glucose Urine UA Norm (Normal); Ketones Urine Negative (Negative); Leukocyte Esterase Urine 1+ (Negative); Mucus Urine TRACE /hpf; Nitrate Urine Negative (Negative); Protein Urine Neg (Negative); RBC Urine 0-4 /hpf (0-2); Specific Gravity, Urine 1.005 (1.005-1.030); Squamous Epithelial Cell Urine 0-4 /hpf (0-5); Urine Appearance Clear (CLEAR); Urine Color Yellow (Yellow); Urobilinogen Urine Norm (Negative); WBC Urine 0-4 /hpf (0-5); pH Urine 8 (5-7)
--- NOTE | 2023-03-23 09:04 | XRR_ITS ---
PROCEDURE INFORMATION: Exam: XR Abdomen Exam date and time: 03/23/2023 9:09 AM Age: 82 years old Clinical indication: Constipation TECHNIQUE: Imaging protocol: Radiologic exam of the abdomen. Views: Frontal supine view of the abdomen. 1 View. Total images: 3 COMPARISON: CT abdomen pelvis wo con [id number] 12/27/2021 9:48 AM FINDINGS: Gastrointestinal tract: There is a large amount of fecal matter seen throughout the colon consistent with constipation. Vasculature: Severe atherosclerotic disease is evident. Bones/joints: Unremarkable. XR/XR KUB portable [id number] IMPRESSION: There is a large amount of fecal matter seen throughout the colon consistent with constipation.
--- NOTE | 2023-03-23 09:08 | W.ED.ABDPA2 ---
HPI - Abdominal Pain General: Chief Complaint: Abdominal Pain Stated Complaint: ABD PAIN Time Seen by Provider: 03/23/23 08:33 Source: patient and family History of Present Illness: 82-year-old male presents to the emergency room with difficulty urination and bowel movements. He has a Hargrove catheter in place that he feels like he needs to go to the bathroom all the time. He thinks it is because he is constipated has not been able to have a typical bowel movement. At the time of presentation denies fever some mild abdominal fullness and bloating sensation no other acute symptoms at this time. MD elicited complaint: abdominal pain Pertinent past history: none Associated Symptoms: Reports constipation; Denies bloating, chills, fever(s), nausea and vomiting Review of Systems Const: Denies: fever(s), chills, fatigue or malaise ENMT: Denies: ear or mastoid pain or nasal congestion Card: Denies: chest pain, palpitations or edema Resp: Denies: dyspnea, productive cough or non-productive cough GI: Reports: constipation; Denies: abdominal pain, nausea, vomiting or bloating : Reports: difficulty urinating (Has Hargrove in place) Skin/Breast: Denies: rash or pruritus PFSH ED PFSH: Medical History Acute cystitis AMS (altered mental status) BPH loc w urin obs/LUTS CAD (coronary artery disease) Carotid stenosis HTN (hypertension) Hyponatremia Type 2 diabetes mellitus Urinary retention Vitamin B12 deficiency Surgical History No pertinent past surgical history Family History Mother , AT 93 Natural Father , AT 84 Cancer LEUKEMIA Social History Smoking and tobacco status: former smoker Alcohol intake: never Substance/Drug Use: never Housing: Alf Marital status: Current occupational status: retired and disabled Physical Exam Const: COMMON NORMALS: no acute distress GENERAL APPEARANCE: cooperative and comfortable ORIENTATION/CONSCIOUSNESS: Yes awake, Yes oriented to person, Yes oriented to place and Yes oriented to time HENMT: COMMON NORMALS: normocephalic, atraumatic and hearing grossly normal bilaterally HEAD & SCALP: normocephalic and atraumatic Resp: COMMON NORMALS: normal respiratory effort, No retractions, No use of accessory muscles and clear to auscultation bilaterally AUSCULTATION: clear to auscultation bilaterally Cardio: COMMON NORMALS: regular rate, regular rhythm and No murmurs present (Cardio) RATE: regular rate RHYTHM: regular rhythm GI: COMMON NORMALS: Soft to palpation and No hepatosplenomegaly present AUSCULTATION: Yes normoactive bowel sounds PALPATION: Yes Soft to palpation, No Tenderness to palpation present (GI), No Guarding due to palpation present (GI) and Yes No hepatosplenomegaly present Extremity: COMMON NORMALS: normal to inspection, capillary refill normal, no clubbing, cyanosis or edema, no calf tenderness and no pedal edema Neuro: SENSORIUM/ORIENTATION: Yes oriented to person, Yes oriented to place and Yes oriented to time Skin: COMMON NORMALS: no rashes or lesions noted GENERAL SKIN EXAM: no rashes or lesions noted Course Vital Signs: Vital signs: Vital Signs Temperature 98.3 F 03/23/23 08:39 Pulse Rate 70 03/23/23 08:39 Respiratory Rate 18 03/23/23 08:39 Blood Pressure 162/83 03/23/23 08:39 Pulse Oximetry 95 03/23/23 09:26 Oxygen Delivery Me thod Room Air 03/23/23 09:26 MDM - Abdominal Pain Medical Decision Making KUB showed constipation. Relieved with enema in the emergency room and discharged home start on MiraLAX daily. Medical Records I reviewed the patient's medical records. Lab Data I reviewed the patient's lab results. 03/23/23 08:42 03/23/23 08:42 Labs/Radiology: Laboratory Results WBC 10.5 10^3/uL (4.0-10.0) H 03/23/23 08:42 RBC 4.86 10^6/uL (4.1-5.3) 03/23/23 08:42 Hgb 13.5 g/dL (11.7-16.6) 03/23/23 08:42 Hct 42.7 % (42.0-52.0) 03/23/23 08:42 MCV 87.9 fl (80-94) 03/23/23 08:42 MCH 27.8 pg (28.0-34.0) L 03/23/23 08:42 MCHC 31.6 g/dL (30.0-36.0) 03/23/23 08:42 RDW 15.1 % (12.1-15.1) 03/23/23 08:42 Plt Count 267 10^3/cmm (130-400) 03/23/23 08:42 MPV 10.1 fL (7.4-10.4) 03/23/23 08:42 Neut % (Auto) 66.8 % 03/23/23 08:42 Lymph % (Auto) 18.0 % 03/23/23 08:42 Cocke % (Auto) 10.0 % 03/23/23 08:42 Eos % (Auto) 3.7 % 03/23/23 08:42 Baso % (Auto) 0.6 % 03/23/23 08:42 Neut # (Auto) 6.99 10^3/uL (1.8-7.7) 03/23/23 08:42 Lymph # (Auto) 1.9 10^3/uL (0.8-4.8) 03/23/23 08:42 [place]ke # (Auto) 1.1 10^3/uL (0.2-0.9) H 03/23/23 08:42 Eos # (Auto) 0.4 10^3/uL (0.0-0.8) 03/23/23 08:42 Baso # (Auto) 0.1 10^3/uL (0.0-0.1) 03/23/23 08:42 Nucleated RBC % (auto) 0 % 03/23/23 08:42 Nucleated RBCs # 0.0 /100WBC 03/23/23 08:42 Sodium 139 mmol/L (136-145) 03/23/23 08:42 Potassium 3.5 mmol/L (3.5-5.1) 03/23/23 08:42 Chloride 101 mmol/L (98-107) 03/23/23 08:42 Carbon Dioxide 26 mmol/L (22-29) 03/23/23 08:42 Anion Gap 15.5 (5-19) 03/23/23 08:42 BUN 11 mg/dL (8-23) 03/23/23 08:42 Creatinine 0.7 mg/dL (0.7-1.2) 03/23/23 08:42 GFR Calculation Not Reportable 03/23/23 08:42 Glucose 147 mg/dL (65-115) H 03/23/23 08:42 Calculated Osmolality 290 mOsm/kg (285-295) 03/23/23 08:42 Calcium 9.2 mg/dL (8.5-10.5) 03/23/23 08:42 Total Bilirubin 0.3 mg/dL (0.15-1.2) 03/23/23 08:42 AST 32 U/L (0-40) 03/23/23 08:42 ALT 24 U/L (0-41) 03/23/23 08:42 Alkaline Phosphatase 52 U/L (40-130) 03/23/23 08:42 Total Protein 7.5 g/dL (6.6-8.7) 03/23/23 08:42 Albumin 3.5 g/dL (3.5-5.2) 03/23/23 08:42 Globulin 4.0 g/dL (1.3-4.6) 03/23/23 08:42 Lipase 30 U/L (13-60) 03/23/23 08:42 Urine Color Yellow (Yellow) 03/23/23 08:45 Urine Appearance Clear (CLEAR) 03/23/23 08:45 Urine pH 8 (5-7) H 03/23/23 08:45 Ur Specific [place] 1.005 (1.005-1.030) 03/23/23 08:45 Urine Protein Neg (Negative) 03/23/23 08:45 Urine Glucose (UA) Norm (Normal) 03/23/23 08:45 Urine Ketones Negative (Negative) 03/23/23 08:45 Urine Blood Neg (Negative) 03/23/23 08:45 Urine Nitrate Negative (Negative) 03/23/23 08:45 Urine Bilirubin Neg (Negative) 03/23/23 08:45 Urine Urobilinogen Norm mg/dL (Negative) 03/23/23 08:45 Ur Leukocyte Esterase 1+ (Negative) H 03/23/23 08:45 Urine RBC 0-4 /hpf (0-2) H 03/23/23 08:45 Urine WBC 0-4 /hpf (0-5) H 03/23/23 08:45 Ur Squamous Epith Cells 0-4 /hpf (0-5) H 03/23/23 08:45 Amorphous Sediment 1+ /hpf 03/23/23 08:45 Urine Bacteria Trace /hpf (NONE) 03/23/23 08:45 Urine Mucus Trace /hpf 03/23/23 08:45 Discharge Plan Discharge Patient Disposition: Home Clinical Impression: Constipation Condition: Stable Prescriptions: New Miralax 17 gram powder in packet 17 g PO DAILY Qty: 100 0RF No Action Aplisol 5 tub. unit /0.1 mL solution intradermal bisacodyl [Alophen (bisacodyl)] 5 mg tablet,delayed release (DR/EC) 5 mg PO DAILY Lantus Solostar U-100 Insulin 100 unit/mL (3 mL) insulin pen 58 unit SUBCUT DAILY metformin 500 mg tablet 1,000 mg PO DAILY pravastatin 20 mg tablet 20 mg PO DAILY amoxicillin-pot clavulanate 875-125 mg tablet 1 tab PO BID insulin lispro [Admelog SoloStar U-100 Insulin] 100 unit/mL insulin pen 5 unit SUBCUT TID finasteride 5 mg tablet 5 mg PO DAILY Qty: 30 2RF acetaminophen [Tylenol] 325 mg Tablet 325 mg PO QID PRN (Reason: Pain) metoprolol succinate 50 mg Tablet Extended Release 24 Hr 50 mg PO DAILY ondansetron HCl 8 mg Tablet 8 mg PO Q8H sennosides-docusate sodium [Senna Plus] 8.6-50 mg Tablet 1 tab-cap PO Q12H PRN (Reason: Constipation) clopidogrel 75 mg tablet 75 mg PO DAILY dimenhydrinate 50 mg Tablet 50 mg PO Q12H PRN (Reason: Nausea) famotidine 20 mg Tablet 20 mg PO DAILY magnesium hydroxide [Milk of Magnesia] 400 mg/5 mL Suspension 400 mg PO DAILY PRN (Reason: Constipation) tamsulosin 0.4 mg capsule 0.4 mg PO BID amlodipine 10 mg tablet 10 mg PO DAILY hydrochlorothiazide 25 mg tablet 25 mg PO DAILY Med Plus See Rx Instructions .ROUTE .COMPLEX Rx Instructions: ;TWO TIMES A DAY FOR PREVENTION Discharge Orders: Discharge ED (Routine); Ordered 03/23/23 Ordered By: Virgilio Beyer Referrals: Sanjay Ryan [Primary Care Provider] - Discharge Diet: Usual diet Discharge Activity: Increase activity as tolerated Patient Instructions: Constipation (ED), Opioid Safety, Pain Management Activity Restrictions/Additional Instructions: You were seen in the emergency room for constipation. You are treated in the emergency room with an enema to relieve the constipation. Recommend that you start MiraLAX daily to prevent constipation in the future. 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
[2023-03-23 09:09] LABS: Alanine Aminotransferase 24 U/L (0-41); Albumin Level 3.5 g/dL (3.5-5.2); Alkaline Phosphatase 52 U/L (40-130); Anion Gap 15.5 (5-19); Aspartate Amino Transferase 32 U/L (0-40); Blood Urea Nitrogen 11 mg/dL (8-23); Calcium 9.2 mg/dL (8.5-10.5); Carbon Dioxide 26 mmol/L (22-29); Chloride 101 mmol/L (98-107); Glucose 147 mg/dL (65-115); Lipase 30 U/L (13-60); Osmolality Calculated 290 mOsm/kg (285-295); Potassium 3.5 mmol/L (3.5-5.1); Sodium 139 mmol/L (136-145); Total Bilirubin 0.3 mg/dL (0.15-1.2); Total Protein 7.5 g/dL (6.6-8.7)
[2023-03-23 09:26] VITALS: O2SAT 95
== END 2023-03-23 13:20 | disposition home or self-care (01) ==
PROVIDERS: Emergency Provider Family Medicine; PCP Nurse Practitioner Family
DX: K59.00 Constipation, unspecified (principal); Z79.84 Long term (current) use of oral hypoglycemic drugs; Z79.4 Long term (current) use of insulin; Z79.02 Long term (current) use of antithrombotics/antiplatelets; I25.10 Atherosclerotic heart disease of native coronary artery without angina pectoris; I10 Essential (primary) hypertension; E11.9 Type 2 diabetes mellitus without complications; Z87.891 Personal history of nicotine dependence
CPT/HCPCS: 74018; 80053; 81001; 83690; 85025; 99284

== ENCOUNTER 2023-04-02 09:52 | Emergency (ER) | payer MEDICARE, MEDICAID, SELFPAY ==
[2023-04-02] VITALS (80 sets, daily range): BP systolic 108–143; BP diastolic 58–93; PULSE 57–88; RESP 8–25; TEMP 36.4; O2SAT 93–98; BMI 31.0
--- NOTE | 2023-04-02 09:56 | ECG_ITS ---
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 Measurements Intervals [place] Rate: 85 P: 38 NV: 200 QRS: -65 QRSD: 100 T: 63 QT: 380 QTc: 452 Interpretive Statements SINUS RHYTHM PATTERN CONSISTENT WITH PULMONARY DISEASE POSSIBLE RIGHT VENTRICULAR CONDUCTION DELAY [RSR (QR) IN V1/V2] LEFT ANTERIOR FASCICULAR BLOCK [QRS AXIS <= -45, QR IN I, RS IN II] Compared to ECG 04/22/2018 14:18:16 Left anterior fascicular block now present Electronically Signed On 04-02-2023 10:28:14 CDT by Huyn Bo M.D. [id number]
--- NOTE | 2023-04-02 09:56 | XR_ITS ---
WS: [id number] Exam: XR chest 1V portable [id number] Date/Time of Exam: 04/02/2023 10:04 AM Reason For Exam: chest pain Comparison 12/25/2021. There are chronic interstitial changes in the lower lung zones. No acute infiltrates are seen. The viola ngs are fully expanded. No pleural effusions. Several old right rib fractures. Degenerative changes o f both shoulders. Cardiomediastinal silhouette is unremarkable for AP portable technique. XR/XR chest 1V portable [id number] IMPRESSION: 1. Chronic interstitial changes in the bilateral lower lung zones. No acute pro cess is noted.
--- NOTE | 2023-04-02 10:29 | ED_ITS ---
HPI - Chest Pain General: Chief Complaint: Chest Pain Stated Complaint: CHEST PAIN Time Seen by Provider: 04/02/23 09:56 History of Present Illness: Patient presents to the ER with complaints of chest pain starting this morning and lasted about 2 hours. It was substernal patient was given 1 nitro and 324 mg aspirin on route by EMS with relief of patient's symptoms patient denies any chest pain currently but does say it hurts when he moves his left shoulder. MD complaint: chest pain Onset: during rest Pain location: substernal and left chest Pain radiation: none Severity: moderate Quality: tightness and aching Relieving factors: nitroglycerin Exacerbating factors: movement Associated symptoms: Reports no associated symptoms Treatment prior to arrival: aspirin and nitroglycerin Review of Systems General: Reports: 10 or more systems reviewed and unremarkable except in HPI and below PFSH ED PFSH: Medical History Acute cystitis AMS (altered mental status) BPH loc w urin obs/LUTS CAD (coronary artery disease) Carotid stenosis HTN (hypertension) Hyponatremia Type 2 diabetes mellitus Urinary retention Vitamin B12 deficiency Surgical History No pertinent past surgical history Family History Mother , AT 93 Natural Father , AT 84 Cancer LEUKEMIA Social History Smoking and tobacco status: former smoker Alcohol intake: never Substance/Drug Use: never Housing: Residential Marital status: Current occupational status: retired and disabled Physical Exam Const: COMMON NORMALS: no acute distress, average body habitus, patient oriented x3, no limitations, healthy appearing, alert and well nourished HENMT: COMMON NORMALS: normocephalic, atraumatic, hearing grossly normal bilaterally, external ears normal, Normal external nose present and moist oral mucous membranes HEAD & SCALP: normocephalic and atraumatic NOSE: Normal external nose present EXTERNAL EAR: Yes external ears normal Eye: COMMON NORMALS: Equal, round and reactive pupils present, EOMs intact bilaterally, conjunctivae normal and no scleral icterus CONJUNCTIVA: Yes conjunctivae normal PUPIL: Yes Equal, round and reactive pupils present Neck/C-Spine: COMMON NORMALS: full ROM, no lymphadenopathy, supple, no meningeal signs, no JVD and Thyroid normal THYROID: Thyroid normal Lymph: LYMPHATIC: no lymphadenopathy noted Chest: COMMONS NORMALS: normal inspection of the chest CHEST: Yes localized rib tenderness with anteroposterior compression Resp: COMMON NORMALS: normal respiratory effort, No retractions, No use of accessory muscles and clear to auscultation bilaterally AUSCULTATION: clear to auscultation bilaterally Cardio: COMMON NORMALS: no JVD, regular rate, regular rhythm, S1 normal heart sound present, S2 normal heart sound present, No gallops present (Cardio), No clicks present (Cardio), No murmurs present (Cardio) and No rub (Cardio) RATE: regular rate RHYTHM: regular rhythm HEART SOUNDS: S1 normal heart sound present and S2 normal heart sound present GI: COMMON NORMALS: Normal to inspection, nondistended, normoactive bowel sounds present Neuro: COMMON NORMALS: patient oriented x3 SENSORIUM/ORIENTATION: Yes alert MENINGEAL SIGNS: Yes no meningeal signs Course Vital Signs: Vital signs: Vital Signs Temperature 97.6 F 04/02/23 09:58 Pulse Rate 58 L 04/02/23 13:00 Respiratory Rate 16 04/02/23 13:00 Blood Pressure 124/68 04/02/23 13:00 Pulse Oximetry 97 04/02/23 13:00 Oxygen Delivery Me thod Room Air 04/02/23 12:30 MDM - Chest Pain Medical Decision Making Patient presents to the ER with complaints of chest pain is worse when he moved his left arm. Patient was given nitro and aspirin on route and by the time he got here as he was pain-free. Pain is reproducible with palpation cardiac work- up was obtained which showed baseline troponin of 19, 2-hour troponin of 18.85 for delta of -0.15. Patient had serial EKGs which showed not normal sinus rhythm with no ST segment changes. Patient was pain-free the entire time here. UA did show mild urinary tract infection. Patient be discharged with atypical chest pain and UTI he will be placed on antibiotics and will be told to follow- up with his family practice doc in the next 7 to 10 days. Differential Diagnosis Unlikely acute massive pulmonary embolism, acute respiratory failure, acute myocardial infarction, cardiac arrest or sudden cardiac Medical Records I reviewed the patient's medical records. Lab Data I reviewed the patient's lab results. 04/02/23 10:37 04/02/23 10:37 Radiology Impressions Chest X-Ray 04/02/23 09:56 IMPRESSION: 1. Chronic interstitial changes in the bilateral lower lung zones. No acute process is noted. Laboratory Results WBC 12.2 10^3/uL (4.0-10.0) H 04/02/23 10:37 RBC 4.75 10^6/uL (4.1-5.3) 04/02/23 10:37 Hgb 13.3 g/dL (11.7-16.6) 04/02/23 10:37 Hct 43.1 % (42.0-52.0) 04/02/23 10:37 MCV 90.7 fl (80-94) 04/02/23 10:37 MCH 28.0 pg (28.0-34.0) 04/02/23 10:37 MCHC 30.9 g/dL (30.0-36.0) 04/02/23 10:37 RDW 15.3 % (12.1-15.1) H 04/02/23 10:37 Plt Count 251 10^3/cmm (130-400) 04/02/23 10:37 MPV 10.7 fL (7.4-10.4) H 04/02/23 10:37 Neut % (Auto) 69.3 % 04/02/23 10:37 Lymph % (Auto) 15.5 % 04/02/23 10:37 Rhea % (Auto) 9.6 % 04/02/23 10:37 Eos % (Auto) 3.9 % 04/02/23 10:37 Baso % (Auto) 0.9 % 04/02/23 10:37 Neut # (Auto) 8.48 10^3/uL (1.8-7.7) H 04/02/23 10:37 Lymph # (Auto) 1.9 10^3/uL (0.8-4.8) 04/02/23 10:37 Rhea # (Auto) 1.2 10^3/uL (0.2-0.9) H 04/02/23 10:37 Eos # (Auto) 0.5 10^3/uL (0.0-0.8) 04/02/23 10:37 Baso # (Auto) 0.1 10^3/uL (0.0-0.1) 04/02/23 10:37 Nucleated RBC % (auto) 0 % 04/02/23 10:37 Nucleated RBCs # 0.0 /100WBC 04/02/23 10:37 PT 12.80 SECONDS (12.1-14.9) 04/02/23 10:37 INR 0.93 (0.8-1.2) 04/02/23 10:37 Sodium 137 mmol/L (136-145) 04/02/23 10:37 Potassium 3.6 mmol/L (3.5-5.1) 04/02/23 10:37 Chloride 101 mmol/L (98-107) 04/02/23 10:37 Carbon Dioxide 22 mmol/L (22-29) 04/02/23 10:37 Anion Gap 17.6 (5-19) 04/02/23 10:37 BUN 17 mg/dL (8-23) 04/02/23 10:37 Creatinine 1.0 mg/dL (0.7-1.2) 04/02/23 10:37 GFR Calculation Not Reportable 04/02/23 10:37 Glucose 163 mg/dL (65-115) H 04/02/23 10:37 Calculated Osmolality 289 mOsm/kg (285-295) 04/02/23 10:37 Calcium 8.7 mg/dL (8.5-10.5) 04/02/23 10:37 Magnesium 1.9 mg/dL (1.7-2.3) 04/02/23 10:37 Total Bilirubin 0.3 mg/dL (0.15-1.2) 04/02/23 10:37 AST 25 U/L (0-40) 04/02/23 10:37 ALT 24 U/L (0-41) 04/02/23 10:37 Alkaline Phosphatase 54 U/L (40-130) 04/02/23 10:37 Troponin T Baseline 19 ng/L (0-15) H 04/02/23 10:37 Troponin T 120 Minute 18.85 ng/L (0-15) H 04/02/23 12:59 Delta Troponin T -0.15 ABS# (0-10) L 04/02/23 12:59 NT-Pro-B Natriuret Pep 145 pg/mL (0-450) 04/02/23 10:37 Total Protein 7.3 g/dL (6.6-8.7) 04/02/23 10:37 Albumin 3.4 g/dL (3.5-5.2) L 04/02/23 10:37 Globulin 3.9 g/dL (1.3-4.6) 04/02/23 10:37 Urine Color Yellow (Yellow) 04/02/23 10:38 Urine Appearance Sl cloudy (CLEAR) A 04/02/23 10:38 Urine pH 5 (5-7) 04/02/23 10:38 Ur Specific [place] 1.025 (1.005-1.030) 04/02/23 10:38 Urine Protein Neg (Negative) 04/02/23 10:38 Urine Glucose (UA) Norm (Normal) 04/02/23 10:38 Urine Ketones Negative (Negative) 04/02/23 10:38 Urine Blood Neg (Negative) 04/02/23 10:38 Urine Nitrate Negative (Negative) 04/02/23 10:38 Urine Bilirubin Neg (Negative) 04/02/23 10:38 Urine Urobilinogen Norm mg/dL (Negative) 04/02/23 10:38 Ur Leukocyte Esterase 1+ (Negative) H 04/02/23 10:38 Urine RBC 15-25 /hpf (0-2) H 04/02/23 10:38 Urine WBC 15-25 /hpf (0-5) H 04/02/23 10:38 Ur Squamous Epith Cells Rare /hpf (0-5) 04/02/23 10:38 Amorphous Sediment Not Reportable 04/02/23 10:38 Urine Bacteria 1+ /hpf (NONE) H 04/02/23 10:38 EKG Data EKG 1: I personally reviewed and interpreted this EKG as follows: EKG interpretation date: 04/02/23 EKG interpretation time: 10:15 Prior EKG tracings: not available for review Interpretation: EKG showed normal ventricular rate 85 bpm, W[place] interval 200, QRS duration 100, QTc of 422, normal sinus rhythm, pattern consistent with pulmonary disease, possible right ventricular conduction delay, left anterior fascicular block EKG 2: I personally reviewed and interpreted this EKG as follows: EKG interpretation date: 04/02/23 EKG interpretation time: 12:19 Prior EKG tracings: available for review Interpretation: EKG showed ventricular rate of 66 bpm, W[place] interval at 204, QRS 91, QTc of 423, normal sinus rhythm, pattern consistent with pulmonary disease, left anterior fascicular block Discharge Plan Discharge Patient Disposition: Home Clinical Impression: Atypical chest pain Urinary tract infection Qualifiers: Urinary tract infection type: acute cystitis Hematuria presence: without hematuria Qualified Code(s): N30.00 - Acute cystitis without hematuria Condition: Stable Prescriptions: New Bactrim DS 800-160 mg tablet 1 tab PO DAILY 7 Days Qty: 14 0RF No Action bisacodyl [Alophen (bisacodyl)] 5 mg tablet,delayed release (DR/EC) 5 mg PO DAILY PRN (Reason: Constipation) Lantus Solostar U-100 Insulin 100 unit/mL (3 mL) insulin pen 64 unit SUBCUT BEDTIME finasteride 5 mg tablet 5 mg PO DAILY Qty: 30 2RF acetaminophen [Tylenol] 325 mg Tablet 325 mg PO QID PRN (Reason: Pain) metoprolol succinate 50 mg Tablet Extended Release 24 Hr 50 mg PO DAILY ondansetron HCl 8 mg Tablet 8 mg PO Q8H clopidogrel 75 mg tablet 75 mg PO DAILY dimenhydrinate 50 mg Tablet 50 mg PO Q12H PRN (Reason: Nausea) magnesium hydroxide [Milk of Magnesia] 400 mg/5 mL Suspension 400 mg PO DAILY PRN (Reason: Constipation) polyethylene glycol 3350 [Miralax] 17 gram powder in packet 17 g PO DAILY Qty: 100 0RF buspirone 5 mg tablet 5 mg PO BID Vitamin B-12 1,000 mcg Tablet 1,000 mcg PO DAILY chlorthalidone 25 mg tablet 25 mg PO DAILY Synthroid 50 mcg Tablet 50 mcg PO DAILY metformin 1,000 mg tablet 1,000 mg PO BEDTIME Glucerna Liquid 1 ea PO DAILY duloxetine 20 mg capsule,delayed release(DR/EC) 20 mg PO EVERY OTHER DAY Probiotic 10 billion cell Capsule 10,000 mmu cells PO DAILY ciprofloxacin HCl 500 mg tablet 500 mg PO BID meclizine 25 mg tablet 25 mg PO TID Colace 100 mg Capsule 100 mg PO BID Mylanta 200-200-20 mg/5 mL Suspension 15 ml PO QID PRN (Reason: Indigestion) Rx Instructions: administer between meals and at bedtime Novolog FlexPen U-100 Insulin 100 unit/mL (3 mL) insulin pen See Rx Instructions .ROUTE .COMPLEX Rx Instructions: 12 unit subcutaneously with meals per sliding scale senna 8.6 mg Capsule 8.6 mg PO BID naloxone 2 mg/2 mL Syringe Kit 2 mg IM Q2M PRN (Reason: Opioid Overdose) Rx Instructions: NTExceed 10 mg total dose/episode Discharge Orders: Discharge ED (Routine); Ordered 04/02/23 Ordered By: Morgan Ayoub Referrals: Sanjay Ryan [Primary Care Provider] - 1 week Patient Instructions: Chest Pain - Noncardiac, Urinary Tract Infection in Men (ED) Activity Restrictions/Additional Instructions: Please take all your antibiotics as directed. Please follow-up with your family practice doc within 1 week or as needed. Return to the ER if your chest pain returns or symptoms change. 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
[2023-04-02 10:46] LABS: Basophils # 0.1 10^3/uL (0.0-0.1); Basophils % 0.9 %; Eosinophils # 0.5 10^3/uL (0.0-0.8); Eosinophils % 3.9 %; Hematocrit 43.1 % (42.0-52.0); Hemoglobin 13.3 g/dL (11.7-16.6); Lymphocytes # 1.9 10^3/uL (0.8-4.8); Lymphocytes % 15.5 %; Mean Corpuscular HGB Conc 30.9 g/dL (30.0-36.0); Mean Corpuscular Volume 90.7 fl (80-94); Mean Platelet Volume 10.7 fL (7.4-10.4); Monocytes # 1.2 10^3/uL (0.2-0.9); Monocytes % 9.6 %; Neutrophils # 8.48 10^3/uL (1.8-7.7); Neutrophils % 69.3 %; Nucleated Red Blood Cells % 0 %; Platelet Count 251 10^3/cmm (130-400); Red Blood Count 4.75 10^6/uL (4.1-5.3); Red Cell Distribution Width 15.3 % (12.1-15.1); White Blood Count 12.2 10^3/uL (4.0-10.0)
[2023-04-02 10:54] LABS: INR 0.93 (0.8-1.2)
[2023-04-02 11:20] LABS: Blood Urine Neg (Negative); Glucose Urine UA Norm (Normal); Ketones Urine Negative (Negative); Nitrate Urine Negative (Negative); Protein Urine Neg (Negative); Specific Gravity, Urine 1.025 (1.005-1.030); Urine Color Yellow (Yellow); pH Urine 5 (5-7)
[2023-04-02 11:21] LABS: Add Urine Microscopic? YES; Bilirubin Urine Neg (Negative); Leukocyte Esterase Urine 1+ (Negative); Urobilinogen Urine Norm (Negative)
[2023-04-02 11:22] LABS: Bacteria Urine 1+ /hpf; RBC Urine 15-25 /hpf (0-2); Squamous Epithelial Cell Urine RARE /hpf (0-5); WBC Urine 15-25 /hpf (0-5)
[2023-04-02 11:23] LABS: Add Urine Culture? Yes
[2023-04-02 11:36] LABS: Alanine Aminotransferase 24 U/L (0-41); Albumin Level 3.4 g/dL (3.5-5.2); Alkaline Phosphatase 54 U/L (40-130); Anion Gap 17.6 (5-19); Aspartate Amino Transferase 25 U/L (0-40); Blood Urea Nitrogen 17 mg/dL (8-23); Calcium 8.7 mg/dL (8.5-10.5); Carbon Dioxide 22 mmol/L (22-29); Chloride 101 mmol/L (98-107); Globulin 3.9 g/dL (1.3-4.6); Glucose 163 mg/dL (65-115); Magnesium 1.9 mg/dL (1.7-2.3); NT Pro B Type Natriuretic Pept 145 pg/mL (0-450); Osmolality Calculated 289 mOsm/kg (285-295); Potassium 3.6 mmol/L (3.5-5.1); Sodium 137 mmol/L (136-145); Total Bilirubin 0.3 mg/dL (0.15-1.2); Total Protein 7.3 g/dL (6.6-8.7)
[2023-04-02 11:53] LABS: Troponin(5th) Baseline 19 ng/L (0-15)
--- NOTE | 2023-04-02 11:56 | ECG_ITS ---
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 Measurements Intervals [place] Rate: 66 P: 63 RI: 204 QRS: -56 QRSD: 91 T: 59 QT: 409 QTc: 431 Interpretive Statements SINUS RHYTHM PATTERN CONSISTENT WITH PULMONARY DISEASE LEFT ANTERIOR FASCICULAR BLOCK [QRS AXIS <= -45, QR IN I, RS IN II] Compared to ECG 04/02/2023 10:15:46 No significant changes Electronically Signed On 04-03-2023 7:27:39 CDT by Hyun Bo M.D. [id number]
[2023-04-02 13:24] LABS: Troponin 5 2HR 18.85 ng/L (0-15)
[2023-04-02 13:34] LABS: Troponin 5 2HR Delta -0.15 ABS# (0-10)
== END 2023-04-02 17:10 | disposition home or self-care (01) ==
PROVIDERS: Emergency Provider Emergency Medicine; PCP Nurse Practitioner Family
DX: R07.89 Other chest pain (principal); N30.00 Acute cystitis without hematuria; Z79.02 Long term (current) use of antithrombotics/antiplatelets; Z79.4 Long term (current) use of insulin; Z79.84 Long term (current) use of oral hypoglycemic drugs; Z87.891 Personal history of nicotine dependence; I25.10 Atherosclerotic heart disease of native coronary artery without angina pectoris; I10 Essential (primary) hypertension; E11.9 Type 2 diabetes mellitus without complications
CPT/HCPCS: 36415; 71045; 80053; 81001; 83735; 83880; 84484; 85025; 85610; 87077; 87086; 87186; 93005; 99285

== ENCOUNTER → 2023-11-25 10:22 | Outpatient (BNVA) | payer MEDICARE, MEDICAID, SELFPAY | PROVIDERS: PCP Nurse Practitioner Family; Visit Provider Internal Medicine Cardiovascular Disease | DX: R07.9 Chest pain, unspecified (principal); I25.10 Atherosclerotic heart disease of native coronary artery without angina pectoris; I65.22 Occlusion and stenosis of left carotid artery; R94.31 Abnormal electrocardiogram [ECG] [EKG]; I10 Essential (primary) hypertension; Z87.891 Personal history of nicotine dependence | CPT/HCPCS: 93005; 99204 ==

== ENCOUNTER 2023-12-02 07:07 | Outpatient (CLI) | payer MEDICARE, MEDICAID, SELFPAY ==
--- NOTE | 2023-12-02 07:30 | USCV_ITS ---
Uzair Jackson Age: 82 Gender: M : 1940 Exam Date: 12/02/2023 07:37 Ordering Phys: Lissa Dunne MD ([email or web address]) Technologist: ARCELIA Exam Location: [facility] [place] Indication: eval for carotid stenosis Risk Factors: Previous Vascular Surgery: Right Brachial BP: / Left Brachial BP: / Right Left Velocity (cm/s) Spectral Plaque Velocity (cm/s) Spectral Plaque Syst/Diast Broadening Syst/Diast Broadening 57.70/ 11.00 Prox CCA 71.70 / 12.10 62.10/ 13.10 Mid CCA 67.40 / 11.10 51.90/ 11.80 Distal CCA 57.50 / 14.80 37.90/ 8.00 Prox ICA 121.30/ 36.40 93.10/ 23.90 Mid ICA 96.30 / 25.60 77.00/ 19.60 Distal ICA 93.20 / 21.80 121.00 ECA 73.00 1.50 ICA/CCA 1.69 Antegrade Vertebral Antegrade 26.90/ 9.90 cm/s 25.60/ 11.70 cm/s Tri Subclavian Tri 125.7 106.4 0 0 FINDINGS Minimal plaques of the bifurcations and proximal ICAs bilaterally Intimal thickening of the common carotid arteries bilaterally Antegrade flow in the vertebral arteries bilaterally Normal Doppler flow velocities in the external carotid arteries bilaterally, vertebral and subclavian arteries bilaterally CONCLUSIONS Minimal plaques of the bifurcations and proximal ICAs bilaterally, suggesting less than 50% stenosis No significant stenosis in the vertebral, subclavian and external carotid arteries, based on the flow velocity measurements compared to the study from 06/20/2020, there may not be a significant change Dr Lissa Dunne MD [facility] (Electronically Signed) Final Date: 21 December 2023 20:34 S
== END 2023-12-02 07:08 | disposition home or self-care (01) ==
LOC: RAD 07:07
PROVIDERS: PCP Nurse Practitioner Family; Visit Provider Internal Medicine Cardiovascular Disease
DX: I65.23 Occlusion and stenosis of bilateral carotid arteries (principal)
CPT/HCPCS: 93880

== ENCOUNTER 2024-02-20 07:12 | Outpatient (CLI) | payer MEDICARE, MEDICAID, SELFPAY ==
--- NOTE | 2024-02-20 | ECG_ITS ---
[facility] Test Date: 2024-02-20 Pat Name: Uzair Jackson Department: Room: Gender: Male Quality Liaison: : 1940 Requested By: Lissa Dunne Order Number: [id number] Bebo MD: Lissa Dunne M.D. Interpretive Statements NAME OF STUDY: LEXISCAN SESTAMIBI STRESS TEST INDICATION: Abnormal EKG; ASHD PROCEDURE: At the baseline, the EKG revealed sinus bradycardia with a poor R wave progression. Left axis deviation. Nonspecific T wave changes. The baseline heart was 89 bpm with a blood pressue of 121/68 mm of Hg Lexiscan was infused over a period of 20 seconds. A total of 0.4 milligrams of Lexiscan was infused. The stress phase was continued for a total of 5 minutes. Heart rate at the end of the stress phase was 78 bpm with a blood pressure 137/65 mm of Hg. The EKG at the peak infusion revealed no significant changes. Sestamibi was injected 20 seconds after the Lexiscan infusion. Heart rate at the end of the recovery phase was 76 bpm with a blood pressure of 139/75 mm of Hg. CONCLUSION: 1. No significant EKG changes with the LexiScan infusion 2. No LexiScan induced chest pain or cardiac arrhythmia 3. Normal blood pressure and heart rate response 4. Sestamibi/sestamibi perfusion scan pending; see separate report. Electronically Signed On 03-01-2024 23:06:31 CDT by Lissa Dunne M.D. [id number]
[2024-02-20 07:24] VITALS: BMI 22.1
--- NOTE | 2024-02-20 07:52 | NMCV_ITS ---
NM lisa perf SPECT r/s* [id number] Renetta Uzair Age: 83 Gender: M : 1940 Exam Date: 02/20/2024 07:54 Ordering Phys: Lissa Dunne MD ([email or web address]) Technologist: BENNY Lambert Exam Location: [facility] Indications: CORONARY ANGIOPLASTY STATUS STRESS TEST Please see separate stress test report in [facility] for full findings IMAGE PROTOCOL Rest/Stress 1 Lexiscan Day Radiopharmaceutical Dose (mCi) Administration Site Administered by Rest: Tc-99m 10.9 IV BENNY Omer Sestamibi Stress:Tc-99m 32.8 IV BENNY Omer Sestamibi Rest: 20-Feb-2024 60 Discovery 630 Stress: 20-Feb-2024 30 Discovery 630 0.4mg Lexiscan. Supine position only as patient was unable to lay prone. SPECT RESULTS Technical Quality: Excellent Raw Data Analysis: Normal Image Corrections: No attenuation or motion correction applied Summed Stress Score: 0 Summed Rest Score: 1 Summed Difference Score: 0 PERFUSION FINDINGS Small area of slightly decreased tracer uptake was noted in the basal and mid inferior wall region, with no significant reversibility. FUNCTIONAL RESULTS (calculated via Gated SPECT) Stress Image LV EF (%): 88 Stress EDV (mL):60 TID: 1.2 Stress ESV (mL):7 FUNCTIONAL FINDINGS: Segmental wall motion analysis revealing no gross wall motion abnormalities IMPRESSIONS 1. Myocardial perfusion imaging revealing small area of persistent decreased tracer uptake involving the basal and mid inferior wall region suggestive of myocardial scarring versus attenuation artifact 2. Normal LV ejection fraction of 88%. 3. LV wall motion analysis revealing no gross wall motion abnormalities. 4. Normal LV volume 5. Elevated transient ischemic dilatation ratio of 1.2 may suggest endocardial ischemia. However the positive predictive value of this finding is limited in the absence of any other abnormal objective findings. No similar previous studies are available for comparison Dr Lissa Dunne MD [facility] (Electronically Signed) Final Date: 20 February 2024 16:01 S
[2024-02-20] MEDS: regadenoson 0.4 Mg/5 ml Syringe IVP (08:45)
[2024-02-20 09:01] VITALS: BP 137/75; PULSE 76
== END 2024-02-20 07:13 | disposition home or self-care (01) ==
LOC: CDL 07:13
PROVIDERS: PCP Internal Medicine; Visit Provider Internal Medicine Cardiovascular Disease
DX: R94.31 Abnormal electrocardiogram [ECG] [EKG] (principal); I25.10 Atherosclerotic heart disease of native coronary artery without angina pectoris
CPT/HCPCS: 36415; 78452; 93017; 96374; A9500; J2785

== ENCOUNTER 2024-03-04 21:47 | Emergency (ER) | payer MEDICARE, MEDICAID, SELFPAY ==
[2024-03-04 21:49] VITALS: BP 98/66; PULSE 79; RESP 18; TEMP 36.6; O2SAT 96; BMI 28.0
--- NOTE | 2024-03-04 22:24 | ED_ITS ---
HPI - Male Genitourinary General: Chief complaint: Urogenital-Male Stated complaint: Cath Issues Time Seen by Provider: 03/04/24 21:49 History of Present Illness: Patient brought in by EMS from [facility] with complaints of a swollen penis. Today when nursing changes catheter it was having a hard time with his foreskin and they end up noticing his penis was swollen. Patient has a Hargrove catheter for several months for urinary retention. Patient is never had t his problem with his penis before. Review of Systems General: Reports: 10 or more systems reviewed and unremarkable except in HPI and below PFSH ED PFSH: Medical History Urinary retention Vitamin B12 deficiency Hyponatremia AMS (altered mental status) Acute cystitis CAD (coronary artery disease) Carotid stenosis Type 2 diabetes mellitus HTN (hypertension) BPH loc w urin obs/LUTS Surgical History No pertinent past surgical history Family History Mother , AT 93 Natural Father , AT 84 Cancer LEUKEMIA Social History Smoking and tobacco/nicotine status: former use of tobacco/nicotine Alcohol intake: never Substance/Drug Use: never Housing: Residential Marital status: Current occupational status: retired and disabled Physical Exam Const: COMMON NORMALS: no acute distress, average body habitus, patient oriented x3, no limitations, healthy appearing, alert and well nourished Neck/C-Spine: COMMON NORMALS: no JVD Chest: COMMONS NORMALS: normal inspection of the chest and normal palpation of entire chest wall Resp: COMMON NORMALS: normal respiratory effort, No retractions, No use of accessory muscles and clear to auscultation bilaterally AUSCULTATION: clear to auscultation bilaterally Cardio: COMMON NORMALS: no JVD, regular rate, regular rhythm, S1 normal heart sound present, S2 normal heart sound present, No gallops present (Cardio), No clicks present (Cardio), No murmurs present (Cardio) and No rub (Cardio) RATE: regular rate RHYTHM: regular rhythm HEART SOUNDS: S1 normal heart sound present and S2 normal heart sound present GI: COMMON NORMALS: Normal to inspection, nondistended, normoactive bowel sounds present, Soft to palpation, non-tender, No hepatosplenomegaly present and no masses PALPATION: Yes Soft to palpation and Yes No hepatosplenomegaly present : OTHER: Foreskin easily moved, there is swelling to the penile shaft right behind the penile head. Is not erythematous no foul purulent drainage. Hargrove catheter is in place and is draining. Neuro: COMMON NORMALS: patient oriented x3 SENSORIUM/ORIENTATION: Yes alert Course Vital Signs: Vital signs: Vital Signs Temperature 97.9 F 03/04/24 21:49 Pulse Rate 79 03/04/24 21:49 Respiratory Rate 18 03/04/24 21:49 Blood Pressure 98/66 03/04/24 21:49 Pulse Oximetry 96 03/04/24 21:49 Oxygen Delivery Me thod Room Air 03/04/24 21:49 MDM - Male Medical Decision Making Physical exam shows patient with a swollen penile shaft right proximal to the head. Is not his foreskin that is swollen. Hargrove catheter is in place and draining. Patient be discharged back to the shelter. No radiology studies performed this visit Discharge Plan Discharge Patient Disposition: Home Clinical Impression: Penile swelling Condition: Stable Prescriptions: No Action bisacodyl [Alophen (bisacodyl)] 5 mg tablet,delayed release (DR/EC) 5 mg PO DAILY PRN (Reason: Constipation) Lantus Solostar U-100 Insulin 100 unit/mL (3 mL) insulin pen 64 unit SUBCUT BEDTIME finasteride 5 mg tablet 5 mg PO DAILY Qty: 30 2RF acetaminophen [Tylenol] 325 mg Tablet 325 mg PO QID PRN (Reason: Pain) metoprolol succinate 50 mg Tablet Extended Release 24 Hr 50 mg PO DAILY ondansetron HCl 8 mg Tablet 8 mg PO Q8H clopidogrel 75 mg tablet 75 mg PO DAILY dimenhydrinate 50 mg Tablet 50 mg PO Q12H PRN (Reason: Nausea) magnesium hydroxide [Milk of Magnesia] 400 mg/5 mL Suspension 400 mg PO DAILY PRN (Reason: Constipation) polyethylene glycol 3350 [Miralax] 17 gram powder in packet 17 g PO DAILY Qty: 100 0RF buspirone 5 mg tablet 5 mg PO BID Vitamin B-12 1,000 mcg Tablet 1,000 mcg PO DAILY chlorthalidone 25 mg tablet 25 mg PO DAILY Synthroid 50 mcg Tablet 50 mcg PO DAILY metformin 1,000 mg tablet 1,000 mg PO BEDTIME Glucerna Liquid 1 ea PO DAILY duloxetine 20 mg capsule,delayed release(DR/EC) 20 mg PO EVERY OTHER DAY Probiotic 10 billion cell Capsule 10,000 mmu cells PO DAILY ciprofloxacin HCl 500 mg tablet 500 mg PO BID meclizine 25 mg tablet 25 mg PO TID Colace 100 mg Capsule 100 mg PO BID Mylanta 200-200-20 mg/5 mL Suspension 15 ml PO QID PRN (Reason: Indigestion) Rx Instructions: administer between meals and at bedtime Novolog FlexPen U-100 Insulin 100 unit/mL (3 mL) insulin pen See Rx Instructions .ROUTE .COMPLEX Rx Instructions: 12 unit subcutaneously with meals per sliding scale senna 8.6 mg Capsule 8.6 mg PO BID naloxone 2 mg/2 mL Syringe Kit 2 mg IM Q2M PRN (Reason: Opioid Overdose) Rx Instructions: NTExceed 10 mg total dose/episode Discharge Orders: Discharge ED (Routine); Ordered 03/04/24 Ordered By: Morgan Ayoub Referrals: Sabas Vaughn MD [Primary Care Provider] - 1 week Activity Restrictions/Additional Instructions: Your evaluation today in ER showed your penile shaft is swollen proximal to the head of your penis. Your foreskin is intact and shows no abnormality. Your Hargrove catheter is in place and draining. It will take time for the swelling to go down. Please follow-up with your family practice physician and/or urologist within next 7 days for further evaluation and treatment. Coding Level of Care Code ED Active Directory Engineer for Tam Seymour
[2024-03-04] MEDS: ketorolac 30 mg/mL INJ IM (22:38)
[2024-03-04 22:43] VITALS: BP 124/85; PULSE 80; RESP 18; O2SAT 95
== END 2024-03-05 00:19 | disposition home or self-care (01) ==
PROVIDERS: Emergency Provider Emergency Medicine; PCP Internal Medicine
DX: N48.9 Disorder of penis, unspecified (principal); Z79.02 Long term (current) use of antithrombotics/antiplatelets; Z79.4 Long term (current) use of insulin; Z79.84 Long term (current) use of oral hypoglycemic drugs; Z87.891 Personal history of nicotine dependence; I25.10 Atherosclerotic heart disease of native coronary artery without angina pectoris; E11.9 Type 2 diabetes mellitus without complications; I10 Essential (primary) hypertension
CPT/HCPCS: 96372; 99284; J1885

== ENCOUNTER 2024-06-22 19:54 | Emergency (ER) | payer MEDICARE, MEDICAID, SELFPAY ==
[2024-06-22 19:55] VITALS: BP 154/80; PULSE 84; RESP 18; TEMP 36.7; O2SAT 93
--- NOTE | 2024-06-22 20:00 | XRR_ITS ---
PROCEDURE INFORMATION: Exam: XR Chest Exam date and time: 06/22/2024 8:08 PM Age: 83 years old Clinical indication: Shortness of breath; Additional info: SOB TECHNIQUE: Imaging protocol: Radiologic exam of the chest. Views: 1 view. COMPARISON: CR XR chest 1V portable [id number] 04/02/2023 10:06 AM FINDINGS: Lungs: Similar chronic interstitial coarsening in the lung bases bilaterally. No focal consolidation or evidence of pulmonary edema. Pleural spaces: Unremarkable. No pleural effusion. No pneumothorax. Heart/Mediastinum: Stable cardiomediastinal contours. Vasculature: Tortuous thoracic aorta with atherosclerotic calcifications. Bones/joints: Unremarkable. XR/XR chest 1V portable [id number] IMPRESSION: Stable chronic interstitial coarsening bilaterally. No acute cardiopulmonary findings.
[2024-06-22 21:25] VITALS: BP 124/84; PULSE 83; RESP 20; O2SAT 94
[2024-06-22 22:09] VITALS: BP 105/63; PULSE 77; RESP 16; O2SAT 95
--- NOTE | 2024-06-22 22:35 | W.ED.GENADLT ---
HPI - General Adult General: Chief complaint: General Medical Stated complaint: possible aspiration Time Seen by Provider: 06/22/24 20:09 Source: family and EMS Mode of arrival: EMS Limitations: no limitations History of Present Illness: Patient is an 83-year-old male who was brought into the emergency department with possible aspiration on food at the [facility]. Was eating food when he had a choking episode, and EMS was subsequently called. On arrival his vitals are normal and does not appear to be any respiratory distress at this time. Family at bedside states that patient is at his normal and they do not think that he choked on food. No symptoms reported at this time. MD complaint: Possible aspiration Onset (ago): hour(s) Associated symptoms: Deny chest pain, dyspnea, headache(s), nausea, rash, palpitations or vomiting Related Data Home Medications Medication Instructions Recorded Confirmed acetaminophen 325 mg tablet 325 mg PO QID PRN Pain 12/24/21 04/02/23 (Tylenol) clopidogrel 75 mg tablet 75 mg PO DAILY 12/24/21 04/02/23 dimenhydrinate 50 mg tablet 50 mg PO Q12H PRN Nausea 12/24/21 04/02/23 magnesium hydroxide 400 mg/5 mL 400 mg PO DAILY PRN Constipation 12/24/21 04/02/23 oral suspension (Milk of Magnesia) metoprolol succinate 50 mg 50 mg PO DAILY 12/24/21 04/02/23 tablet,extended release 24 hr ondansetron HCl 8 mg tablet 8 mg PO Q8H 12/24/21 04/02/23 bisacodyl 5 mg tablet,delayed 5 mg PO DAILY PRN Constipation 03/25/22 04/02/23 release (Alophen (bisacodyl)) insulin glargine 100 unit/mL (3 64 unit SUBCUT BEDTIME 03/25/22 04/02/23 mL) subcutaneous pen (Lantus Solostar U-100 Insulin) Lactobacillus acidophilus 10 10,000 mmu cells PO DAILY 04/02/23 04/02/23 billion cell capsule (Probiotic) aluminum-mag hydroxide-simethicone 15 ml PO QID PRN Indigestion 04/02/23 04/02/23 200 mg-200 mg-20 mg/5 mL oral susp buspirone 5 mg tablet 5 mg PO BID 04/02/23 04/02/23 chlorthalidone 25 mg tablet 25 mg PO DAILY 04/02/23 04/02/23 ciprofloxacin HCl 500 mg tablet 500 mg PO BID 04/02/23 04/02/23 cyanocobalamin (vitamin B-12) 1,000 mcg PO DAILY 04/02/23 04/02/23 1,000 mcg tablet (Vitamin B-12) docusate sodium 100 mg capsule 100 mg PO BID 04/02/23 04/02/23 (Colace) duloxetine 20 mg capsule,delayed 20 mg PO EVERY OTHER DAY 04/02/23 04/02/23 release insulin aspart U-100 100 unit/mL See Rx Instructions .Route .COMPLEX 04/02/23 04/02/23 (3 mL) subcutaneous pen (Novolog FlexPen U-100 Insulin aspart) levothyroxine 50 mcg tablet 50 mcg PO DAILY 04/02/23 04/02/23 (Synthroid) meclizine 25 mg tablet 25 mg PO TID 04/02/23 04/02/23 metformin 1,000 mg tablet 1,000 mg PO BEDTIME 04/02/23 04/02/23 naloxone 2 mg/2 mL syringe kit 2 mg IM Q2M PRN Opioid Overdose 04/02/23 04/02/23 nut.tx.gluc.intol,lac-free,soy 1 ea PO DAILY 04/02/23 04/02/23 (Glucerna oral liquid) sennosides 8.6 mg capsule (senna) 8.6 mg PO BID 04/02/23 04/02/23 Previous Rx's Medication Instructions Recorded finasteride 5 mg tablet 5 mg PO DAILY #30 tabs 09/14/20 polyethylene glycol 3350 17 gram 17 g PO DAILY #100 ea 03/23/23 oral powder packet (Miralax) Allergies Allergy/AdvReac Type Severity Reaction Status Date / Time adhesive Allergy rash Verified 06/22/24 20:04 Review of Systems General: Reports: 10 or more systems reviewed and unremarkable except in HPI and below Const: Denies: fever(s), chills or fatigue Eyes: Denies: change in vision ENMT: Denies: throat pain, ear or mastoid pain or nasal discharge Card: Denies: chest pain, palpitations, swelling of feet/ankles or lightheadedness Resp: Reports: other (Possible aspiration); Denies: dyspnea, productive cough or wheezing GI: Denies: abdominal pain, nausea, vomiting, diarrhea or constipation : Denies: flank pain, difficulty urinating, dysuria or urinary frequency Musc: Denies: neck pain, back pain or joint pain Skin/Breast: Denies: rash Neuro: Denies: headache(s), numbness in extremities or weakness in extremities PFSH ED PFSH: Medical History Urinary retention Vitamin B12 deficiency Hyponatremia AMS (altered mental status) Acute cystitis CAD (coronary artery disease) Carotid stenosis Type 2 diabetes mellitus HTN (hypertension) BPH loc w urin obs/LUTS Surgical History No pertinent past surgical history Family History Mother , AT 93 Natural Father , AT 84 Cancer LEUKEMIA Social History Smoking and tobacco/nicotine status: former use of tobacco/nicotine Alcohol intake: never Substance/Drug Use: never Housing: [facility] Marital status: Current occupational status: retired and disabled Physical Exam Const: COMMON NORMALS: no acute distress and no limitations GENERAL APPEARANCE: cooperative, comfortable and well developed ORIENTATION/CONSCIOUSNESS: Yes awake OTHER: Breathing comfortably, appears nontoxic HENMT: COMMON NORMALS: normocephalic, atraumatic, hearing grossly normal bilaterally, Normal nasal mucous membranes and turbinates present, moist oral mucous membranes and oropharynx normal HEAD & SCALP: normocephalic and atraumatic NOSE: Normal nasal mucous membranes and turbinates present Eye: COMMON NORMALS: Equal, round and reactive pupils present, EOMs intact bilaterally and conjunctivae normal CONJUNCTIVA: Yes conjunctivae normal PUPIL: Yes Equal, round and reactive pupils present Neck/C-Spine: COMMON NORMALS: full ROM, supple and no JVD Chest: COMMONS NORMALS: normal inspection of the chest and normal palpation of entire chest wall Resp: COMMON NORMALS: normal respiratory effort, No retractions, No use of accessory muscles and clear to auscultation bilaterally AUSCULTATION: clear to auscultation bilaterally Cardio: COMMON NORMALS: no JVD, regular rate, regular rhythm, No clicks present (Cardio), No murmurs present (Cardio) and No rub (Cardio) RATE: regular rate RHYTHM: regular rhythm GI: COMMON NORMALS: Normal to inspection, nondistended, normoactive bowel sounds present, Soft to palpation and non-tender AUSCULTATION: Yes normoactive bowel sounds PALPATION: Yes Soft to palpation RECTAL EXAM: Yes deferred Extremity: COMMON NORMALS: normal to inspection, full ROM and capillary refill normal Skin: COMMON NORMALS: no rashes or lesions noted GENERAL SKIN EXAM: no rashes or lesions noted Course Vital Signs: Vital signs: Vital Signs Temperature 98.0 F 06/22/24 19:55 Pulse Rate 77 06/22/24 22:09 Respiratory Rate 16 06/22/24 22:09 Blood Pressure 105/63 06/22/24 22:09 Pulse Oximetry 95 06/22/24 22:09 Oxygen Delivery Me thod Room Air 06/22/24 22:09 MDM - General Adult Medical Decision Making EMS brought patient in after [facility] called for patient having a choking episode on food. EMS did not report any issues on transfer of patient to the emergency department. His vitals were normal, is breathing comfortably on room air. No coughing or apparent respiratory distress, and his physical examination including cardiopulmonary auscultation was normal. Family at bedside did confirm that they do not believe he is having any aspiration and he is at his normal baseline health. Chest x-ray did not demonstrate any acute bolus or other abnormal related findings, and patient will be discharged back to [facility] with return precautions given. Family agrees at this time. Lab Data Radiology Impressions Chest X-Ray 06/22/24 20:00 IMPRESSION: Stable chronic interstitial coarsening bilaterally. No acute cardiopulmonary findings. All radiology interpretation(s) finalized by discharge Discharge Plan Discharge Patient Disposition: Home Clinical Impression: Choked on food Condition: Stable Prescriptions: No Action bisacodyl [Alophen (bisacodyl)] 5 mg tablet,delayed release (DR/EC) 5 mg PO DAILY PRN (Reason: Constipation) Lantus Solostar U-100 Insulin 100 unit/mL (3 mL) insulin pen 64 unit SUBCUT BEDTIME finasteride 5 mg tablet 5 mg PO DAILY Qty: 30 2RF acetaminophen [Tylenol] 325 mg Tablet 325 mg PO QID PRN (Reason: Pain) metoprolol succinate 50 mg Tablet Extended Release 24 Hr 50 mg PO DAILY ondansetron HCl 8 mg Tablet 8 mg PO Q8H clopidogrel 75 mg tablet 75 mg PO DAILY dimenhydrinate 50 mg Tablet 50 mg PO Q12H PRN (Reason: Nausea) magnesium hydroxide [Milk of Magnesia] 400 mg/5 mL Suspension 400 mg PO DAILY PRN (Reason: Constipation) polyethylene glycol 3350 [Miralax] 17 gram powder in packet 17 g PO DAILY Qty: 100 0RF buspirone 5 mg tablet 5 mg PO BID Vitamin B-12 1,000 mcg Tablet 1,000 mcg PO DAILY chlorthalidone 25 mg tablet 25 mg PO DAILY Synthroid 50 mcg Tablet 50 mcg PO DAILY metformin 1,000 mg tablet 1,000 mg PO BEDTIME Glucerna Liquid 1 ea PO DAILY duloxetine 20 mg capsule,delayed release(DR/EC) 20 mg PO EVERY OTHER DAY Probiotic 10 billion cell Capsule 10,000 mmu cells PO DAILY ciprofloxacin HCl 500 mg tablet 500 mg PO BID meclizine 25 mg tablet 25 mg PO TID Colace 100 mg Capsule 100 mg PO BID Mylanta 200-200-20 mg/5 mL Suspension 15 ml PO QID PRN (Reason: Indigestion) Rx Instructions: administer between meals and at bedtime Novolog FlexPen U-100 Insulin 100 unit/mL (3 mL) insulin pen See Rx Instructions .ROUTE .COMPLEX Rx Instructions: 12 unit subcutaneously with meals per sliding scale senna 8.6 mg Capsule 8.6 mg PO BID naloxone 2 mg/2 mL Syringe Kit 2 mg IM Q2M PRN (Reason: Opioid Overdose) Rx Instructions: NTExceed 10 mg total dose/episode Discharge Orders: Discharge ED (Routine); Ordered 06/22/24 Ordered By: Adam Antoine Referrals: Sabas Vaughn MD [Primary Care Provider] - Discharge Diet: Usual diet Discharge Activity: Increase activity as tolerated Activity Restrictions/Additional Instructions: Continue prescribed medications. Follow-up with primary care. Return with any new or worsening. Coding Level of Care Code ED [employer] Engineer for Tam Seymour
[2024-06-23 04:00] VITALS: BP 134/71; PULSE 62; O2SAT 92
[2024-06-23 04:30] VITALS: BP 136/71; PULSE 71; O2SAT 92
[2024-06-23 05:00] VITALS: BP 118/63; PULSE 70; O2SAT 92
== END 2024-06-23 05:29 | disposition home or self-care (01) ==
PROVIDERS: Emergency Provider Physician Assistant; PCP Internal Medicine
DX: T17.928A Food in respiratory tract, part unspecified causing other injury, initial encounter (principal); W44.F3XA Food entering into or through a natural orifice, initial encounter; Z79.4 Long term (current) use of insulin; Z79.02 Long term (current) use of antithrombotics/antiplatelets; Z79.84 Long term (current) use of oral hypoglycemic drugs; Z87.891 Personal history of nicotine dependence; I25.10 Atherosclerotic heart disease of native coronary artery without angina pectoris; E11.9 Type 2 diabetes mellitus without complications; I10 Essential (primary) hypertension
CPT/HCPCS: 71045; 99283

== ENCOUNTER 2025-01-16 12:21 | Emergency (ER) | payer MEDICARE, MEDICAID, SELFPAY ==
[2025-01-16] VITALS (7 sets, daily range): BP systolic 114–189; BP diastolic 66–105; PULSE 61–80; RESP 18; TEMP 36.4; O2SAT 91–97; BMI 35.4
--- NOTE | 2025-01-16 12:29 | W.ED.GENADLT ---
HPI - General Adult General: Chief complaint: Urogenital-Male Stated complaint: needs catheter placed Time Seen by Provider: 01/16/25 12:29 Source: patient and EMS Mode of arrival: EMS Limitations: no limitations History of Present Illness: 84-year-old male has a history of suprapubic cath suprapubic catheter been pulled out sometime this morning at the residential. halfway was not able to replace it was sent here. He denies any pain has no other complaints this time Associated symptoms: Deny chest pain, dyspnea, headache(s), nausea, rash or vomiting Related Data Home Medications ?Medication ?Instructions ?Recorded ?Confirmed acetaminophen 325 mg tablet 325 mg PO QID PRN Pain 12/24/21 04/02/23 (Tylenol) clopidogrel 75 mg tablet 75 mg PO DAILY 12/24/21 04/02/23 dimenhydrinate 50 mg tablet 50 mg PO Q12H PRN Nausea 12/24/21 04/02/23 magnesium hydroxide 400 mg/5 mL 400 mg PO DAILY PRN Constipation 12/24/21 04/02/23 oral suspension (Milk of Magnesia) metoprolol succinate 50 mg 50 mg PO DAILY 12/24/21 04/02/23 tablet,extended release 24 hr ondansetron HCl 8 mg tablet 8 mg PO Q8H 12/24/21 04/02/23 bisacodyl 5 mg tablet,delayed 5 mg PO DAILY PRN Constipation 03/25/22 04/02/23 release (Alophen (bisacodyl)) insulin glargine 100 unit/mL (3 64 unit SUBCUT BEDTIME 03/25/22 04/02/23 mL) subcutaneous pen (Lantus Solostar U-100 Insulin) Lactobacillus acidophilus 10 10,000 mmu cells PO DAILY 04/02/23 04/02/23 billion cell capsule (Probiotic) aluminum-mag hydroxide-simethicone 15 ml PO QID PRN Indigestion 04/02/23 04/02/23 200 mg-200 mg-20 mg/5 mL oral susp buspirone 5 mg tablet 5 mg PO BID 04/02/23 04/02/23 chlorthalidone 25 mg tablet 25 mg PO DAILY 04/02/23 04/02/23 ciprofloxacin HCl 500 mg tablet 500 mg PO BID 04/02/23 04/02/23 cyanocobalamin (vitamin B-12) 1,000 mcg PO DAILY 04/02/23 04/02/23 1,000 mcg tablet (Vitamin B-12) docusate sodium 100 mg capsule 100 mg PO BID 04/02/23 04/02/23 (Colace) duloxetine 20 mg capsule,delayed 20 mg PO EVERY OTHER DAY 04/02/23 04/02/23 release insulin aspart U-100 100 unit/mL See Rx Instructions .Route .COMPLEX 04/02/23 04/02/23 (3 mL) subcutaneous pen (Novolog FlexPen U-100 Insulin aspart) levothyroxine 50 mcg tablet 50 mcg PO DAILY 04/02/23 04/02/23 (Synthroid) meclizine 25 mg tablet 25 mg PO TID 04/02/23 04/02/23 metformin 1,000 mg tablet 1,000 mg PO BEDTIME 04/02/23 04/02/23 naloxone 2 mg/2 mL syringe kit 2 mg IM Q2M PRN Opioid Overdose 04/02/23 04/02/23 nut.tx.gluc.intol,lac-free,soy 1 ea PO DAILY 04/02/23 04/02/23 (Glucerna oral liquid) sennosides 8.6 mg capsule (senna) 8.6 mg PO BID 04/02/23 04/02/23 Previous Rx's ?Medication ?Instructions ?Recorded finasteride 5 mg tablet 5 mg PO DAILY #30 tabs 09/14/20 polyethylene glycol 3350 17 gram 17 g PO DAILY #100 ea 03/23/23 oral powder packet (Miralax) Allergies Allergy/AdvReac Type Severity Reaction Status Date / Time adhesive Allergy rash Verified 01/16/25 12:35 Review of Systems Const: Denies: fever(s), chills, body aches or change in appetite ENMT: Denies: throat pain or dental pain Card: Denies: chest pain Resp: Denies: dyspnea GI: Denies: abdominal pain, nausea, vomiting or diarrhea : Reports: difficulty urinating Musc: Denies: neck pain or back pain Skin/Breast: Denies: rash Neuro: Denies: headache(s) PFSH ED PFSH: Medical History Urinary retention Vitamin B12 deficiency Hyponatremia AMS (altered mental status) Acute cystitis CAD (coronary artery disease) Carotid stenosis Type 2 diabetes mellitus HTN (hypertension) BPH loc w urin obs/LUTS Surgical History No pertinent past surgical history Family History Mother , AT 93 Natural Father , AT 84 Cancer LEUKEMIA Social History Smoking and tobacco/nicotine status: former use of tobacco/nicotine Alcohol intake: never Substance/Drug Use: never Housing: Prison Marital status: Current occupational status: retired and disabled Physical Exam Const: COMMON NORMALS: no acute distress, patient oriented x3 and healthy appearing HENMT: COMMON NORMALS: normocephalic and atraumatic HEAD & SCALP: normocephalic and atraumatic Eye: COMMON NORMALS: conjunctivae normal CONJUNCTIVA: Yes conjunctivae normal Neck/C-Spine: COMMON NORMALS: full ROM and supple Chest: COMMONS NORMALS: normal inspection of the chest Resp: COMMON NORMALS: normal respiratory effort, No retractions, No use of accessory muscles and clear to auscultation bilaterally AUSCULTATION: clear to auscultation bilaterally Cardio: COMMON NORMALS: regular rate, regular rhythm and No murmurs present (Cardio) RATE: regular rate RHYTHM: regular rhythm GI: COMMON NORMALS: Normal to inspection, nondistended, normoactive bowel sounds present, Soft to palpation, non-tender and no masses PALPATION: Yes Soft to palpation Extremity: COMMON NORMALS: normal to inspection and full ROM Neuro: COMMON NORMALS: patient oriented x3, moves all extremities and no focal motor deficits Psych: COMMON NORMALS: mental status grossly normal, Normal thought process present and cooperative THOUGHT PROCESS: Normal thought process present Skin: COMMON NORMALS: no rashes or lesions noted and no wounds GENERAL SKIN EXAM: no rashes or lesions noted Course Vital Signs: Vital signs: Vital Signs Temperature 97.5 F L 01/16/25 12:35 Pulse Rate 80 01/16/25 12:35 Respiratory Rate 18 01/16/25 12:35 Blood Pressure 189/105 01/16/25 12:35 Pulse Oximetry 97 01/16/25 12:35 [facility] - General Adult Medical Decision Making Patient presents here today with a dislodged suprapubic cath tract shot was unable to place a new suprapubic was able to place a Hargrove normally he had good urine output he stable for discharge back to the residential they are to set up urology follow-up Medical Records I reviewed the patient's medical records. No radiology studies performed this visit Discharge Plan Discharge Patient Disposition: Home Clinical Impression: Dislodged Hargrove catheter Condition: Stable Prescriptions: No Action bisacodyl [Alophen (bisacodyl)] 5 mg tablet,delayed release (DR/EC) 5 mg PO DAILY PRN (Reason: Constipation) Lantus Solostar U-100 Insulin 100 unit/mL (3 mL) insulin pen 64 unit SUBCUT BEDTIME finasteride 5 mg tablet 5 mg PO DAILY Qty: 30 2RF acetaminophen [Tylenol] 325 mg Tablet 325 mg PO QID PRN (Reason: Pain) metoprolol succinate 50 mg Tablet Extended Release 24 Hr 50 mg PO DAILY ondansetron HCl 8 mg Tablet 8 mg PO Q8H clopidogrel 75 mg tablet 75 mg PO DAILY dimenhydrinate 50 mg Tablet 50 mg PO Q12H PRN (Reason: Nausea) magnesium hydroxide [Milk of Magnesia] 400 mg/5 mL Suspension 400 mg PO DAILY PRN (Reason: Constipation) polyethylene glycol 3350 [Miralax] 17 gram powder in packet 17 g PO DAILY Qty: 100 0RF buspirone 5 mg tablet 5 mg PO BID Vitamin B-12 1,000 mcg Tablet 1,000 mcg PO DAILY chlorthalidone 25 mg tablet 25 mg PO DAILY Synthroid 50 mcg Tablet 50 mcg PO DAILY metformin 1,000 mg tablet 1,000 mg PO BEDTIME Glucerna Liquid 1 ea PO DAILY duloxetine 20 mg capsule,delayed release(DR/EC) 20 mg PO EVERY OTHER DAY Probiotic 10 billion cell Capsule 10,000 mmu cells PO DAILY ciprofloxacin HCl 500 mg tablet 500 mg PO BID meclizine 25 mg tablet 25 mg PO TID Colace 100 mg Capsule 100 mg PO BID Mylanta 200-200-20 mg/5 mL Suspension 15 ml PO QID PRN (Reason: Indigestion) Rx Instructions: administer between meals and at bedtime Novolog FlexPen U-100 Insulin 100 unit/mL (3 mL) insulin pen See Rx Instructions .ROUTE .COMPLEX Rx Instructions: 12 unit subcutaneously with meals per sliding scale senna 8.6 mg Capsule 8.6 mg PO BID naloxone 2 mg/2 mL Syringe Kit 2 mg IM Q2M PRN (Reason: Opioid Overdose) Rx Instructions: NTExceed 10 mg total dose/episode Discharge Orders: Discharge ED (Routine); Ordered 01/16/25 Ordered By: Ann Puga Referrals: Sabas Vaughn MD [Primary Care Provider] - 4-7 days Discharge Diet: Advance as tolerated Discharge Activity: Resume usual activity Patient Instructions: Hargrove Catheter Care Print Language: Omani Coding Level of Care Code ED Corporate Coordinator for Tam Seymour
--- NOTE | 2025-01-16 13:19 | PC.NURSE ---
this RN called report back to [facility], spoke with Juliette the nurse who takes care of pt. this RN asked when pts catheter was ripped out, trying to get information on pts situation because all he could say was 'sometime this morning'. staff at retirement states that they are suspicious that this pt and another patient at the retirement are having intercourse. staff states that she dumped pts becerra this morning with 600 ml out. when this rn an Dr. Puga placed becerra, the pt had 600 ml out. staff at [facility] asked for this RNs name and credentials an states 'i feel like you were cross examining me.' she then states 'i dont like your tone, im not going to argue with you'. this rn stated 'have a good day, and hung up the phone. charge nurse notified.
== END 2025-01-16 16:23 | disposition home or self-care (01) ==
PROVIDERS: Emergency Provider Emergency Medicine; PCP Internal Medicine
DX: T83.021A Displacement of indwelling urethral catheter, initial encounter (principal); X58.XXXA Exposure to other specified factors, initial encounter; Z79.02 Long term (current) use of antithrombotics/antiplatelets; Z79.84 Long term (current) use of oral hypoglycemic drugs; Z87.891 Personal history of nicotine dependence; E11.9 Type 2 diabetes mellitus without complications; I25.10 Atherosclerotic heart disease of native coronary artery without angina pectoris; I10 Essential (primary) hypertension
CPT/HCPCS: 51702; 99283

== ENCOUNTER 2025-04-09 11:51 | Emergency (ER) | payer MEDICARE, MEDICAID, SELFPAY ==
[2025-04-09] VITALS (14 sets, daily range): BP systolic 88–114; BP diastolic 46–76; PULSE 61–78; RESP 12–19; TEMP 36.8; O2SAT 93–99; BMI 23.6
--- NOTE | 2025-04-09 11:54 | XRR_ITS ---
PROCEDURE INFORMATION: Exam: XR Chest Exam date and time: 04/09/2025 12:02 PM Age: 84 years old Clinical indication: Chest pressure; Chest pain TECHNIQUE: Imaging protocol: Radiologic exam of the chest. Views: 1 view. COMPARISON: CR XR chest 1V portable [id number] 06/22/2024 8:08 PM FINDINGS: Lungs: Moderate central pulmonary vasculature congestive changes. Interstitial opacities are also present. Pleural spaces: Unremarkable. No pleural effusion. No pneumothorax. Heart/Mediastinum: Unremarkable. No cardiomegaly. Bones/joints: Unremarkable. XR/XR chest 1V portable [id number] IMPRESSION: As above.
--- NOTE | 2025-04-09 11:56 | ECG_ITS ---
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1940 Requested By: Raúl Valentin Order Number: [id number] Reading MD: YURI HARDING Measurements Intervals [place] Rate: 64 P: 87 MN: 275 QRS: -60 QRSD: 105 T: 48 QT: 411 QTc: 425 Interpretive Statements SINUS RHYTHM WITH FIRST DEGREE AV BLOCK LEFT ANTERIOR FASCICULAR BLOCK [QRS AXIS <= -45, QR IN I, RS IN II] POSSIBLE ANTERIOR MYOCARDIAL INFARCTION , PROBABLY OLD [30 ms Q WAVE IN V3/V4, OR R < 0.2 mV IN V4] Compared to ECG 11/25/2023 10:46:09 First degree AV block now present Left anterior fascicular block now present Myocardial infarct finding now present Left-axis deviation no longer present Electronically Signed On 04-09-2025 23:47:25 CDT by YURI HARDING [id number] [id number]
--- NOTE | 2025-04-09 12:24 | W.ED.CHESTPA ---
HPI - Chest Pain General: Chief Complaint: Chest Pain Stated Complaint: chest pain Time Seen by Provider: 04/09/25 11:52 History of Present Illness: 84-year-old male brought in via EMS from [facility]. Patient has been there for about 2 days. Patient complained of chest pain with deep breath. EMS reports that he got 1 nitro and aspirin in route. Patient stated to EMS that his chest pain resolved after the nitro. However after EMS left patient told nursing staff when they went to draw blood that he did not needed his blood drawn because he did not really have chest pain he just wanted to get out of the nursing care facility. Patient is in a c-collar and brace from a prior fall with a neck fracture. No fall prior to this ER visit. Associated symptoms: Deny fever(s) Related Data Home Medications ?Medication ?Instructions ?Recorded ?Confirmed acetaminophen 325 mg tablet 325 mg PO QID PRN Pain 12/24/21 04/09/25 (Tylenol) clopidogrel 75 mg tablet 75 mg PO DAILY 12/24/21 04/09/25 magnesium hydroxide 400 mg/5 mL 400 mg PO DAILY PRN Constipation 12/24/21 04/09/25 oral suspension (Milk of Magnesia) metoprolol succinate 50 mg 50 mg PO QAM 12/24/21 04/09/25 tablet,extended release 24 hr bisacodyl 5 mg tablet,delayed 5 mg PO DAILY PRN Constipation 03/25/22 04/09/25 release (Alophen (bisacodyl)) insulin glargine 100 unit/mL (3 44 unit SUBCUT BID 03/25/22 04/09/25 mL) subcutaneous pen (Lantus Solostar U-100 Insulin) Lactobacillus acidophilus 10 10,000 mmu cells PO QAM 04/02/23 04/09/25 billion cell capsule (Probiotic) aluminum-mag hydroxide-simethicone 30 ml PO Q6H PRN Indigestion 04/02/23 04/09/25 200 mg-200 mg-20 mg/5 mL oral susp chlorthalidone 25 mg tablet 25 mg PO QAM 04/02/23 04/09/25 cyanocobalamin (vitamin B-12) 1,000 mcg PO QAM 04/02/23 04/09/25 1,000 mcg tablet (Vitamin B-12) docusate sodium 100 mg capsule 100 mg PO BID 04/02/23 04/09/25 (Colace) duloxetine 20 mg capsule,delayed 20 mg PO QAM 04/02/23 04/09/25 release insulin aspart U-100 100 unit/mL See Rx Instructions .Route .COMPLEX 04/02/23 04/09/25 (3 mL) subcutaneous pen (Novolog FlexPen U-100 Insulin aspart) levothyroxine 50 mcg tablet 50 mcg PO QAM 04/02/23 04/09/25 (Synthroid) meclizine 25 mg tablet 12.5 mg PO TID 04/02/23 04/09/25 naloxone 2 mg/2 mL syringe kit 2 mg IM Q2M PRN Opioid Overdose 04/02/23 04/09/25 albuterol sulfate 2.5 mg/3 mL 2.5 mg inhalation Q4H PRN 04/09/25 04/09/25 (0.083 %) solution for nebulization Shortness Of Breath gabapentin 300 mg capsule 300 mg PO TID 04/09/25 04/09/25 glucagon HCl 1 mg solution for 1 mg SUBCUT Q24H PRN prophylaxis 04/09/25 04/09/25 injection (Glucagon (HCl) Emergency Kit) hydrocodone 5 mg-acetaminophen 325 1 tab PO Q6H PRN Severe Pain 04/09/25 04/09/25 mg tablet (Scale Score 7-10) lisinopril 10 mg tablet 10 mg PO QAM 04/09/25 04/09/25 metformin 500 mg tablet,extended 500 mg PO BID 04/09/25 04/09/25 release 24 hr ondansetron HCl 4 mg tablet 4 mg PO Q8H PRN Nausea And Vomiting 04/09/25 04/09/25 polyethylene glycol 3350 17 gram 17 g PO DAILY PRN Constipation 04/09/25 04/09/25 oral powder packet (Miralax) pravastatin 20 mg tablet 20 mg PO QAM 04/09/25 04/09/25 sulfamethoxazole 800 1 tab PO BID 04/09/25 04/09/25 mg-trimethoprim 160 mg tablet (Bactrim DS) Allergies Allergy/AdvReac Type Severity Reaction Status Date / Time adhesive Allergy rash Verified 01/16/25 12:35 Review of Systems Const: Denies: fever(s) or chills Card: Reports: other (please see hpi ) Musc: Reports: other (please see hpi ) Skin/Breast: Denies: rash PFSH ED PFSH: Medical History Urinary retention Vitamin B12 deficiency Hyponatremia AMS (altered mental status) Acute cystitis CAD (coronary artery disease) Carotid stenosis Type 2 diabetes mellitus HTN (hypertension) BPH loc w urin obs/LUTS Surgical History No pertinent past surgical history Family History Mother , AT 93 Natural Father , AT 84 Cancer LEUKEMIA Social History Smoking and tobacco/nicotine status: former use of tobacco/nicotine Alcohol intake: never Substance/Drug Use: never Housing: Assisted Marital status: Current occupational status: retired and disabled Physical Exam Const: COMMON NORMALS: no acute distress and patient oriented x3 Neck/C-Spine: OTHER: C-collar in place Resp: COMMON NORMALS: normal respiratory effort, No retractions and clear to auscultation bilaterally AUSCULTATION: clear to auscultation bilaterally Cardio: COMMON NORMALS: regular rate and regular rhythm RATE: regular rate RHYTHM: regular rhythm Neuro: COMMON NORMALS: patient oriented x3 and no focal motor deficits Psych: COMMON NORMALS: mental status grossly normal and speech normal SPEECH: Yes normal speech Course Vital Signs: Vital signs: Vital Signs Temperature 98.2 F 04/09/25 11:52 Pulse Rate 64 04/09/25 16:01 Respiratory Rate 18 04/09/25 15:30 Blood Pressure 110/52 04/09/25 16:01 Pulse Oximetry 97 04/09/25 16:01 Oxygen Delivery Me thod Room Air 04/09/25 12:38 MDM - Chest Pain Medical Decision Making Patient's diagnostic studies were reviewed. Patient had 2 EKGs that show sinus rhythm with first-degree block, left anterior fascicular ocular block. This is unchanged through both EKG with 1 have a ventricular rate of 64, [place] 275 QRS 105 and the second 1 having a ventricular rate of 61, [place] 307 QRS 102, there is no acute ST change elevation noted. Patient also has 2 troponins near his baseline based on chart review. Patient had admitted that he did not really have chest pain to the nursing staff. Patient will be discharged back to the care center in stable condition. Patient's chest x-ray shows some mild congestion but no significant acute findings. Lab Data 04/09/25 12:20 04/09/25 12:20 Radiology Impressions Chest X-Ray 04/09/25 11:54 IMPRESSION: As above. Laboratory Results WBC 13.17 10^3/uL (3.29-11.43) H 04/09/25 12:20 RBC 4.85 10^6/uL (3.85-5.65) 04/09/25 12:20 Hgb 12.90 g/dL (11.27-16.99) 04/09/25 12:20 Hct 41.9 % (37-53) 04/09/25 12:20 MCV 86.4 fl (82-101) 04/09/25 12:20 MCH 26.6 pg (27-33) L 04/09/25 12:20 MCHC 30.8 g/dL (30-55) 04/09/25 12:20 RDW 16.2 % (12.1-15.1) H 04/09/25 12:20 Plt Count 289 10^3/cmm (157-399) 04/09/25 12:20 MPV 9.7 fL (7.4-10.4) 04/09/25 12:20 Neut % (Auto) 61.5 % 04/09/25 12:20 Lymph % (Auto) 19.8 % 04/09/25 12:20 [place] % (Auto) 9.8 % 04/09/25 12:20 Eos % (Auto) 5.8 % 04/09/25 12:20 Baso % (Auto) 1.0 % 04/09/25 12:20 Neut # (Auto) 8.10 10^3/uL (1.8-7.7) H 04/09/25 12:20 Lymph # (Auto) 2.6 10^3/uL (0.8-4.8) 04/09/25 12:20 [place] # (Auto) 1.3 10^3/uL (0.2-0.9) H 04/09/25 12:20 Eos # (Auto) 0.8 10^3/uL (0.0-0.8) 04/09/25 12:20 Baso # (Auto) 0.1 10^3/uL (0.0-0.1) 04/09/25 12:20 Nucleated RBC % (auto) 0 % 04/09/25 12:20 Nucleated RBCs # 0.0 /100WBC 04/09/25 12:20 Sodium 135 mmol/L (136-145) L 04/09/25 12:20 Potassium 4.1 mmol/L (3.5-5.1) 04/09/25 12:20 Chloride 98 mmol/L (98-107) 04/09/25 12:20 Carbon Dioxide 24 mmol/L (22-29) 04/09/25 12:20 Anion Gap 17.1 (5-19) 04/09/25 12:20 BUN 37 mg/dL (8-23) H 04/09/25 12:20 Creatinine 1.6 mg/dL (0.7-1.2) H 04/09/25 12:20 GFR Calculation Not Reportable 04/09/25 12:20 Glucose 91 mg/dL (65-115) 04/09/25 12:20 Calculated Osmolality 288 mOsm/kg (285-295) 04/09/25 12:20 Calcium 9.3 mg/dL (8.5-10.5) 04/09/25 12:20 Total Bilirubin 0.2 mg/dL (0.15-1.2) 04/09/25 12:20 AST 15 U/L (0-40) 04/09/25 12:20 ALT 9 U/L (0-41) 04/09/25 12:20 Alkaline Phosphatase 57 U/L (40-130) 04/09/25 12:20 Troponin T Baseline 26 ng/L (0-15) H 04/09/25 12:20 Troponin T 120 Minute 25.45 ng/L (0-15) H 04/09/25 14:24 Delta Troponin T -0.55 ABS# (0-10) L 04/09/25 14:24 Total Protein 7.6 g/dL (6.6-8.7) 04/09/25 12:20 Albumin 3.7 g/dL (3.5-5.2) 04/09/25 12:20 Globulin 3.9 g/dL (1.3-4.6) 04/09/25 12:20 All radiology interpretation(s) finalized by discharge Discharge Plan Discharge Patient Disposition: Home Clinical Impression: Pain of anterior chest wall with respiration Condition: Stable Prescriptions: No Action bisacodyl [Alophen (bisacodyl)] 5 mg tablet,delayed release (DR/EC) 5 mg PO DAILY PRN (Reason: Constipation) Lantus Solostar U-100 Insulin 100 unit/mL (3 mL) insulin pen 44 unit SUBCUT BID acetaminophen [Tylenol] 325 mg Tablet 325 mg PO QID PRN (Reason: Pain) metoprolol succinate 50 mg Tablet Extended Release 24 Hr 50 mg PO QAM clopidogrel 75 mg tablet 75 mg PO DAILY magnesium hydroxide [Milk of Magnesia] 400 mg/5 mL Suspension 400 mg PO DAILY PRN (Reason: Constipation) cyanocobalamin (vitamin B-12) [Vitamin B-12] 1,000 mcg Tablet 1,000 mcg PO QAM chlorthalidone 25 mg tablet 25 mg PO QAM levothyroxine [Synthroid] 50 mcg Tablet 50 mcg PO QAM duloxetine 20 mg capsule,delayed release(DR/EC) 20 mg PO QAM Probiotic 10 billion cell Capsule 10,000 mmu cells PO QAM meclizine 25 mg tablet 12.5 mg PO TID docusate sodium [Colace] 100 mg Capsule 100 mg PO BID alum-mag hydroxide-simeth [Mylanta] 200-200-20 mg/5 mL Suspension 30 ml PO Q6H PRN (Reason: Indigestion) Rx Instructions: administer between meals and at bedtime insulin aspart U-100 [Novolog FlexPen U-100 Insulin] 100 unit/mL (3 mL) insulin pen See Rx Instructions .ROUTE .COMPLEX Rx Instructions: 12 unit subcutaneously with meals per sliding scale: bs 150-199=2 units, 200-299=3 units, 300-349=4 units, 350-399=5 units, 400-999=7 units. naloxone 2 mg/2 mL Syringe Kit 2 mg IM Q2M PRN (Reason: Opioid Overdose) Rx Instructions: NTExceed 10 mg total dose/episode albuterol sulfate 2.5 mg /3 mL (0.083 %) Solution For Nebulization 2.5 mg INHALATION Q4H PRN (Reason: Shortness Of Breath) hydrocodone-acetaminophen 5-325 mg tablet 1 tab PO Q6H MDD 4 tablets PRN (Reason: Severe Pain (Scale Score 7-10)) ondansetron HCl 4 mg Tablet 4 mg PO Q8H PRN (Reason: Nausea And Vomiting) sulfamethoxazole-trimethoprim [Bactrim DS] 800-160 mg Tablet 1 tab PO BID lisinopril 10 mg tablet 10 mg PO QAM gabapentin 300 mg capsule 300 mg PO TID pravastatin 20 mg tablet 20 mg PO QAM metformin 500 mg tablet extended release 24 hr 500 mg PO BID glucagon HCl [Glucagon (HCl) Emergency Kit] 1 mg Recon Soln 1 mg SUBCUT Q24H PRN (Reason: prophylaxis) Rx Instructions: until target blood sugar attained polyethylene glycol 3350 [Miralax] 17 gram powder in packet 17 g PO DAILY PRN (Reason: Constipation) Discharge Orders: Discharge ED (Routine); Ordered 04/09/25 Ordered By: Raúl Valentin Referrals: Sabas Vaughn MD [Primary Care Provider, Internal Medicine] Discharge Diet: Usual diet Discharge Activity: Increase activity as tolerated Patient Instructions: Chest Pain (ED), Chest Wall Pain (ED), Opioid Safety, Pain Management Activity Restrictions/Additional Instructions: Please have patient follow-up with a primary care provider for further outpatient evaluation and recheck of his symptoms. Return to the ER with any concerns. Print Language: Irish Coding Level of Care Code ED Loan Officer for Tam Seymour
[2025-04-09 12:30] LABS: Basophils # 0.1 10^3/uL (0.0-0.1); Eosinophils # 0.8 10^3/uL (0.0-0.8); Eosinophils % 5.8 %; Hematocrit 41.9 % (37-53); Lymphocytes # 2.6 10^3/uL (0.8-4.8); Lymphocytes % 19.8 %; Mean Corpuscular HGB Conc 30.8 g/dL (30-55); Mean Corpuscular Hemoglobin 26.6 pg (27-33); Mean Corpuscular Volume 86.4 fl (82-101); Mean Platelet Volume 9.7 fL (7.4-10.4); Monocytes # 1.3 10^3/uL (0.2-0.9); Monocytes % 9.8 %; Neutrophils % 61.5 %; Nucleated Red Blood Cells % 0 %; Platelet Count 289 10^3/cmm (157-399); Red Blood Count 4.85 10^6/uL (3.85-5.65); Red Cell Distribution Width 16.2 % (12.1-15.1); White Blood Count 13.17 10^3/uL (3.29-11.43)
--- NOTE | 2025-04-09 12:43 | PC.NURSE ---
Went into patient's room to adjust his O2 sensor when lab arrived and stated they were going to draw blood. Pt stated I don't think so . I asked the pt why he did not want his blood drawn since he was having chest pain and we needed to check him out and make sure he was ok. Pt stated that he was not having chest pain and that he was just kidding when he said that to get out of the assisted. I then looked at the patient's paperwork and he was just admitted to the assisted yesterday for rehab for a broken neck due to a recent fall.
[2025-04-09 12:49] LABS: Troponin(5th) Baseline 26 ng/L (0-15)
[2025-04-09 12:57] LABS: Alanine Aminotransferase 9 U/L (0-41); Albumin Level 3.7 g/dL (3.5-5.2); Alkaline Phosphatase 57 U/L (40-130); Anion Gap 17.1 (5-19); Aspartate Amino Transferase 15 U/L (0-40); Blood Urea Nitrogen 37 mg/dL (8-23); Calcium 9.3 mg/dL (8.5-10.5); Carbon Dioxide 24 mmol/L (22-29); Chloride 98 mmol/L (98-107); Creatinine Clr Calc Pharmacy 33.4922; Globulin 3.9 g/dL (1.3-4.6); Glucose 91 mg/dL (65-115); Osmolality Calculated 288 mOsm/kg (285-295); Potassium 4.1 mmol/L (3.5-5.1); Sodium 135 mmol/L (136-145); Total Bilirubin 0.2 mg/dL (0.15-1.2); Total Protein 7.6 g/dL (6.6-8.7)
--- NOTE | 2025-04-09 13:28 | PC.PHAR ---
Pt is in rehab at [facility]-med rec completed via current med list from them.
--- NOTE | 2025-04-09 14:46 | ECG_ITS ---
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1940 Requested By: Raúl Valentin Order Number: [id number] Bebo MD: YURI HARDING Measurements Intervals [place] Rate: 61 P: 75 AL: 307 QRS: -55 QRSD: 102 T: 42 QT: 423 QTc: 429 Interpretive Statements SINUS RHYTHM WITH FIRST DEGREE AV BLOCK LEFT ANTERIOR FASCICULAR BLOCK [QRS AXIS <= -45, QR IN I, RS IN II] POSSIBLE ANTERIOR MYOCARDIAL INFARCTION , OF INDETERMINATE AGE [30 ms Q WAVE IN V3/V4, OR R < 0.2 mV IN V4] Compared to ECG 04/09/2025 11:56:57 No significant changes Electronically Signed On 04-09-2025 23:53:25 CDT by YURI HARDING [email or web address] [id number]
--- NOTE | 2025-04-09 14:53 | PC.NURSE ---
Gave pt a sandwich and a coke.
[2025-04-09 15:06] LABS: Troponin 5 2HR 25.45 ng/L (0-15); Troponin 5 2HR Delta -0.55 ABS# (0-10)
== END 2025-04-09 16:02 | disposition home or self-care (01) ==
PROVIDERS: Emergency Provider Student in an Organized Health Care Education/Training Program; PCP Internal Medicine
DX: R07.89 Other chest pain (principal); R07.1 Chest pain on breathing; Z79.4 Long term (current) use of insulin; Z79.84 Long term (current) use of oral hypoglycemic drugs; Z87.891 Personal history of nicotine dependence; E11.9 Type 2 diabetes mellitus without complications; I25.10 Atherosclerotic heart disease of native coronary artery without angina pectoris; I10 Essential (primary) hypertension
CPT/HCPCS: 36415; 71045; 80053; 84484; 85025; 93005; 99285